=== PATIENT | female | born 1955 | race American Indian/Alaskan Native ===

== ENCOUNTER 2019-01-18 22:30 | Emergency (ER) | payer MEDICAID, OTHER, SELFPAY ==
[2019-01-18] VITALS (7 sets, daily range): BP systolic 164–185; BP diastolic 91–105; PULSE 82–95; RESP 16–21; O2SAT 94–97
--- NOTE | 2019-01-18 22:33 | DI.CT.S_ITS ---
PROCEDURE: CT HEAD/BRAIN WO CON INDICATIONS: Code stroke TECHNIQUE: Noncontrast 4.5 mm thick angled axial sections acquired from the foramen magnum to the vertex, with coronal and sagittal reformats. For radiation dose reduction, the following was used: automated exposure control, adjustment of mA and/or kV according to patient size. COMPARISON: [facility], CT, HEAD WITHOUT CONTRAST, 06/30/2016, 9:29. FINDINGS: Image quality: Excellent. CSF spaces: Basal cisterns are patent. No extra-axial fluid collections. The ventricles are symmetric in size and shape. Brain: There is an old infarct in the right frontal lobe with encephalomalacia, unchanged from last exam. No intracranial bleeds or masses. There is cerebral volume loss for age, with resultant ventricular and sulcal prominence. There are periventricular and deep white matter chronic small vessel ischemic changes. There is intracranial internal carotid artery atherosclerosis. Skull and face: Calvarium and visualized facial bones appear intact, without suspicious lesions. Sinuses: Visualized sinuses and mastoids are clear. IMPRESSION: 1. No acute intracranial abnormalities. 2. Old infarct in the right frontal lobe with encephalomalacia. 3. Cerebral volume loss and chronic microvascular ischemic changes. No significant discrepancy with the material handler 1st shift radiology preliminary report. Dictated by: Katelyn Hinds M.D. on 01/19/2019 at 7:17 Approved by: Katelyn Hinds M.D. on 01/19/2019 at 7:19
--- NOTE | 2019-01-18 22:33 | DI.CT.S_ITS ---
PROCEDURE: CT ANGIO HEAD AND NECK INDICATIONS: Code stroke TECHNIQUE: Pre-contrast 4.5 mm thick sections acquired from the foramen magnum to the vertex. After the administration of intravenous contrast, 1 mm thick sections acquired from the aortic arch through the [place]. Post-contrast 4.5 mm thick sections then re-acquired from the foramen magnum to the vertex. 3-dimensional vmtfdzw-rynmkkvcv-ddrktphzca (MIP) and/or volume rendering reformats were acquired of the central intracranial vasculature and neck separately. COMPARISON: [facility], CT, HEAD WITHOUT CONTRAST, 06/30/2016, 9:29. [facility], MR, STROKE PROTOCOL, 07/01/2016, 11:34. [facility], CT, CT HEAD/BRAIN WO CON, 01/18/2019, 22:30. FINDINGS: Image quality: Excellent. BRAIN: CSF spaces: Ventricles are normal in size and shape. Basal cisterns are patent. No extra-axial fluid collections. Brain: There is old right frontal infarction. Dilated perivascular space versus lacunar infarct in the left basal ganglia. There is cerebral volume loss. Mild to moderate periventricular white matter chronic small vessel ischemic changes are present. No midline shift. No intracranial bleeds or masses. Charles-white matter interface appears intact. Skull and face: Calvarium and facial bones appear intact, without suspicious lesions. Orbits appear normal. Sinuses: Sinuses and mastoids are clear. HEAD CT ANGIOGRAPHY: Anterior circulation: Intracranial internal carotid arteries are normal in size and flow. The flow within the paired anterior cerebral arteries is normal and symmetric. The flow within the middle cerebral arteries is normal and symmetric. The anterior communicating artery is seen. No aneurysms are seen. Posterior circulation: Visualized portions of the vertebral arteries demonstrate normal caliber, and join to form a normal appearing basilar artery. The small caliber of the left posterior cerebral artery. The right posterior cerebral artery is normal in caliber. No aneurysms are seen. NECK CT ANGIOGRAPHY: Carotid system: The great vessels demonstrate a conventional anatomy as they arise from the aortic arch. The origins of the common carotid arteries appear patent. The common carotid arteries demonstrate normal caliber and courses. There are calcified plaques at the bifurcations bilaterally without high-grade stenosis. The internal carotid arteries demonstrate normal calibers and courses. Posterior circulation: The origins of the vertebral arteries both appear widely patent. The more superior extracranial portions of both vertebral arteries also demonstrate normal courses and calibers. They join to form a normal appearing basilar artery. Soft tissues: Visualized neck soft tissues demonstrate no suspicious abnormalities. Bones: No suspicious bony lesions. Visualized cervical spine appears normally aligned. IMPRESSION: 1. No acute intracranial abnormalities. Old right frontal cerebral infarction is present. There is cerebral volume loss with mild to moderate periventricular white matter chronic small vessel ischemic changes. 2. No high-grade stenosis or occlusion in anterior circulations. 3. Small caliber of the left posterior cerebral artery, which could be anatomic variant. 4. No high-grade stenosis or occlusion in cervical carotid arteries bilaterally. 5. No high-grade stenosis or occlusion in cervical vertebral arteries bilaterally. Any quantitative measurements of stenosis were performed using NASCET criteria. Dictated by: Katelyn Hinds M.D. on 01/19/2019 at 8:03 Approved by: Katelyn Hinds M.D. on 01/19/2019 at 8:20
--- NOTE | 2019-01-18 22:34 | ED.GENADULT ---
HPI - General Adult General Chief complaint: Neuro Symptoms/Deficit Stated complaint: Code Stroke Time Seen by Provider: 01/18/19 22:32 Source: EMS Mode of arrival: EMS Limitations: other (Aphasia) History of Present Illness HPI narrative: Arrives by EMS as a code stroke is reported by EMS that the patient's last known normal was at 1900 this evening. Patient arrived to the emergency department at the 3-1/2 hour time lily. It was reported by EMS that the patient is an insulin-dependent diabetic unsure how compliant she is. Also history that she has a prior stroke. During my interview with the patient does appear that this prior stroke was greater than 1 year ago. Unsure any residual deficits. There is no family at bedside to help with history. It does appear that the last known normal at 1900 is a firm time line. EMS reports that they were told the patient has equal strength bilaterally however this slurring her words and has a right-sided facial droop. No interventions from EMS prior to arrival Related Data Home Medications Medication Instructions Recorded Confirmed amlodipine 10 mg PO QDAY #0 06/30/16 atorvastatin 40 mg PO HS #0 06/30/16 bupropion HCl [Wellbutrin SR] 100 mg PO BID #0 06/30/16 cholecalciferol (vitamin D3) 1,000 iu PO QDAY #0 06/30/16 [Vitamin D3] insulin asp prt-insulin aspart 10 u SQ BIDCC #0 06/30/16 [Novolog Mix 70-30FlexPen U-100] metoprolol tartrate 50 mg PO BID #0 06/30/16 omeprazole 20 mg PO QDAY #0 06/30/16 prazosin [Minipress] 1 mg PO HS #0 06/30/16 Previous Rx's Medication Instructions Recorded aspirin 325 mg PO QDAY #30 07/02/16 lisinopril 40 mg PO QDAY #30 07/02/16 metformin [Glucophage] 1,000 mg PO BIDCC #60 07/02/16 Allergies Allergy/AdvReac Type Severity Reaction Status Date / Time No Known Allergies Allergy Uncoded 07/23/17 12:26 Review of Systems Review of Systems Narrative: Limited review systems given patient's medical condition ROS Unobtainable: Unobtainable due to medical condition Constitutional Constitutional: Denies headache(s) ENT Ears, Nose, Mouth, and Throat: Denies headache(s) Cardiovascular Cardiovascular: Denies chest pain and Denies dyspnea Respiratory Respiratory: Denies dyspnea Gastrointestinal Gastrointestinal: Denies abdominal pain Neurologic Neurologic: Denies headache(s) Comments: Slurring words, facial droop, Hematologic/Lymphatic Comments: No reported use of anticoagulation [facility] Medical History (Updated 01/18/19 @ 23:15 by Colin Le DO) CVA (cerebral vascular accident) (Acute) Diabetes (Acute) Surgical History Surgical history unknown (Acute) Social History Smoking Status: Current every day smoker Social History Smoking Status: Current every day smoker Exam Initial Vital Signs Initial Vital Signs: Vital Signs Pulse Rate 95 H 01/18/19 22:17 Respiratory Rate 16 01/18/19 22:17 Blood Pressure 171/91 H 01/18/19 22:17 Pulse Oximetry 97 01/18/19 22:17 Const General: comfortable Orientation: alert and awake Other: Aphasia HENMT Head: normal to inspection and normocephalic Eyes Pupils: PERRL EOM: EOM intact bilaterally (However some apparent difficulty looking to the right) Resp Effort & Inspection: normal respiratory effort Auscultation: clear to auscultation bilaterally Cardio Rate: regular rate Rhythm: regular rhythm Pulses: radial pulses present GI Inspection: non-distended Palpation: soft Skin Lesions: no lesions Rashes: no rashes Neuro General: alert and awake Other: See NIH scale Extrem General: capillary refill normal and No edema Psych Appearance: grossly normal and well kempt Scores GCS Kelly coma scale eye opening: Spontaneous [place] coma scale verbal response: None Kelly coma scale motor response: Obey commands [place] coma scale total score: 11 NIH Stroke Scale Level of Conciousness: Alert, keenly responsive Ask month/age: Answers neither question correctly, aphasic, stuporous, coma Open/close eyes, close hand: Performs both tasks correctly Best gaze horizontal: Partial gaze palsy, can be overcome by finger tracking, head turning Visual zuleta: Partial hemianopia Facial palsy: Minor paralysis, flattened nasolabial fold, asymmetry on smiling Left arm drift: No drift for full 10 sec Right arm drift: No drift for full 10 sec Left leg drift: No drift for full 10 sec Right leg drift: No drift for full 10 sec Limb ataxia: Present in one limb (Right upper them) Sensory on face/arms/legs: Normal, no sensory loss Best language: Mute, global aphasia Dysarthria: Severe, unintelligible Extinction or inattention: Visual, tactile, auditory, spacial or personal inattention to stimuli Total NIH Stroke scale score: 12 Course Orders Ordered: ED Orders 01/18/19 22:33 CT angio head and neck Stat CT head/brain wo con Stat 01/18/19 22:38 Complete Blood Count AUTO DIFF Stat Comprehensive Metabolic Panel Stat Ethanol (ETOH) Stat Lipase Stat Partial Thromboplastin Time Stat Prothrombin Time INR Stat Troponin I Stat 01/18/19 22:56 Ammonia (NH3) Stat Thyroid Stimulating Hormone Stat 01/18/19 23:14 EKG-12 Lead Stat Sodium Chloride (Normal Saline 0.9%) 1,000 mls @ 125 mls/hr IV CONT ABIDA Last Admin: 01/19/19 00:50 Dose: 125 mls/hr Documented by: PEPE Discontinued Medications Alteplase, Recombinant (Activase) 8 mg 0.09 mg/kg (8 mg) IV NOW ONE Stop: 01/18/19 23:01 Last Admin: 01/18/19 23:24 Dose: 8 mg Documented by: PEPE Alteplase, Recombinant (Activase) 71.6 mg 0.81 mg/kg (71.6 mg) IV NOW ONE Stop: 01/18/19 23:01 Last Admin: 01/18/19 23:25 Dose: 71.6 mg Documented by: PEPE Vital Signs Vital signs: Vital Signs - 8 hr 01/18/19 22:17 01/18/19 23:00 01/18/19 23:25 Pulse Rate 95 H 91 H 89 Respiratory Rate 16 21 Blood Pressure 171/91 H Blood Pressure [Right Arm] 171/91 H 165/100 H Pulse Oximetry 97 95 94 01/18/19 23:36 01/18/19 23:40 01/18/19 23:45 Pulse Rate 87 82 82 Respiratory Rate 19 17 19 Blood Pressure Blood Pressure [Right Arm] 164/96 H 174/105 H 175/100 H Pulse Oximetry 94 95 95 01/18/19 23:55 01/19/19 00:05 01/19/19 00:10 Pulse Rate 83 76 79 Respiratory Rate 19 16 20 Blood Pressure Blood Pressure [Right Arm] 185/101 H 178/103 H 164/104 H Pulse Oximetry 96 96 95 01/19/19 00:21 01/19/19 00:25 01/19/19 00:40 Pulse Rate 81 78 77 Respiratory Rate 19 19 19 Blood Pressure Blood Pressure [Right Arm] 180/100 H 163/109 H 167/93 H Pulse Oximetry 96 20 L 96 01/19/19 00:55 01/19/19 01:10 01/19/19 01:26 Pulse Rate 78 81 87 Respiratory Rate 19 17 21 Blood Pressure Blood Pressure [Right Arm] 162/104 H 176/109 H 183/98 H Pulse Oximetry 97 97 97 Medical Decision Making Lab Data Lab results reviewed: Yes I reviewed the patient's lab results. Result diagrams: 01/18/19 22:38 01/18/19 22:38 Labs: Lab Results 01/18/19 01/18/19 01/18/19 Range/Units 22:38 22:38 22:38 WBC 9.7 (4.5-11.0) X10^3/uL RBC 4.99 (4.0-5.2) X10^6/uL Hgb 15.2 (12.0-16.0) g/dL Hct 44.0 (36-46) % MCV 88.3 (80-100) fL MCH 30.4 (26-34) PG MCHC 34.4 (30-36) % RDW 12.9 (11.6-14.8) % Plt Count 383 (150-400) X10^3/uL Neut % (Auto) 59.2 (50-75) % Lymph % (Auto) 29.8 (25-40) % [place] % (Auto) 7.5 (3-14) % Eos % (Auto) 2.7 (2-4) % Baso % (Auto) 0.8 (0-2) % Neut # (Auto) 5800 (8304-9480) /uL Lymph # (Auto) 2900 (0217-1558) /uL [place] # (Auto) 700 (0-900) /uL Eos # (Auto) 300 (0-450) /uL Baso # (Auto) 100 (0-100) /uL PT 11.4 (10.1-12.7) SECONDS INR 1.0 (0.9-1.3) APTT 32 (26.4-36.2) SECONDS Sodium 140 (137-145) mmol/L Potassium 3.2 L (3.4-5.1) mmol/L Chloride 98 (98-107) mmol/L Carbon Dioxide 29 (22-32) mmol/L BUN 16 (7-17) mg/dL Creatinine 1.10 H (0.52-1.04) mg/dL Estimated GFR 50.5 L (>60) mL/min BUN/Creatinine Ratio 14.5 (6-22) Glucose 252 H (80-110) mg/dL Calcium 10.1 (8.4-10.2) mg/dL Total Bilirubin 0.7 (0.2-1.3) mg/dL AST 21 (14-36) IU/L ALT 19 (9-52) IU/L Alkaline Phosphatase 102 (38-126) U/L Ammonia (9-30) umol/L Troponin I (0.01-0.034) ng/mL Total Protein 7.3 (6.3-8.2) g/dL Albumin 4.2 (3.5-5.0) g/dL Globulin 3.1 (1.7-4.1) g/dL Albumin/Globulin Ratio 1.4 (1.0-2.8) Lipase (23-300) U/L TSH (0.47-4.68) uIU/mL Ethyl Alcohol < 10 ( - 10) mg/dL 01/18/19 01/18/19 01/18/19 Range/Units 22:38 22:56 22:56 WBC (4.5-11.0) X10^3/uL RBC (4.0-5.2) X10^6/uL Hgb (12.0-16.0) g/dL Hct (36-46) % MCV (80-100) fL MCH (26-34) PG MCHC (30-36) % RDW (11.6-14.8) % Plt Count (150-400) X10^3/uL Neut % (Auto) (50-75) % Lymph % (Auto) (25-40) % [place] % (Auto) (3-14) % Eos % (Auto) (2-4) % Baso % (Auto) (0-2) % Neut # (Auto) (5923-7848) /uL Lymph # (Auto) (2417-4434) /uL [place] # (Auto) (0-900) /uL Eos # (Auto) (0-450) /uL Baso # (Auto) (0-100) /uL PT (10.1-12.7) SECONDS INR (0.9-1.3) APTT (26.4-36.2) SECONDS Sodium (137-145) mmol/L Potassium (3.4-5.1) mmol/L Chloride (98-107) mmol/L Carbon Dioxide (22-32) mmol/L BUN (7-17) mg/dL Creatinine (0.52-1.04) mg/dL Estimated GFR (>60) mL/min BUN/Creatinine Ratio (6-22) Glucose (80-110) mg/dL Calcium (8.4-10.2) mg/dL Total Bilirubin (0.2-1.3) mg/dL AST (14-36) IU/L ALT (9-52) IU/L Alkaline Phosphatase (38-126) U/L Ammonia < 9.0 L (9-30) umol/L Troponin I < 0.012 (0.01-0.034) ng/mL Total Protein (6.3-8.2) g/dL Albumin (3.5-5.0) g/dL Globulin (1.7-4.1) g/dL Albumin/Globulin Ratio (1.0-2.8) Lipase 141 (23-300) U/L TSH 0.81 (0.47-4.68) uIU/mL Ethyl Alcohol ( - 10) mg/dL Point of Care Testing Glucose POC 272 Point of care testing: Point of Care Testing Glucose POC [address] scan - head: Radiologist's impression: No acute intracranial findings. Specifically, no evidence of intracranial hemorrhage. Old right frontal infarct CTA head and neck: Radiologist's impression: High-grade stenosis of the markedly diminutive left posterior cerebral artery throughout its course Atherosclerotic vascular calcifications present in the carotid bulbs and cavernous portions of the internal carotid arteries without significant stenosis ECG Data Attestation: I personally reviewed and interpreted this ECG as follows: Prior ECG tracings: not available for review Interpretation: Sinus rhythm Ventricular rate 84 Normal axis Normal QRS Normal QTC No ST T wave changes MDM Narrative Medical decision making narrative: Patient arrived right at the 3.5 hour window for tPA. Patient received tPA based on symptoms after non con head CT showed no signs of intracranial hemorrhage. initial NIH score 12. After period of time patient's symptoms did start to improve. I discussed the case with who agreed with the tPA. At review of the CTA does not show any indication for code IR. 0125: Patient somewhat improved after tPA. There is no signs of intracranial hemorrhage. Patient's speech has improved. When asked what brought her to the emergency department she said ?I had a stroke? she is still slurring her words quite a bit however I do feel there improved. Repeat NIH is 10. Please see NIH scoring sheet for details. tPA infusion is complete. Will continue to monitor After several discussions with Dr. Javier he spoke with the neuro intensive care provider Dr. Daniel who will accept the patient in transfer. I did not specifically speak with Dr. Daniel however transfer center provided this name is accepting provider. We do appreciate their support in caring for this patient. Patient is stable for transport. There has been no signs of intracranial hemorrhage. patient was informed of the need for transfer and the importance of the transfer. She is stable for transport. She expressed understanding and agreement. Discharge Plan Departure Patient Disposition: [facility] Clinical Impression: Expressive aphasia CVA (cerebral vascular accident) Qualifiers: CVA mechanism: unspecified Qualified Code(s): I63.9 - Cerebral infarction, unspecified Prescriptions: No Action atorvastatin 40 MG tablet 40 mg PO HS Qty: 0 RF: 0 bupropion HCl [Wellbutrin SR] 100 MG tablet extended release 12 hr 100 mg PO BID Qty: 0 RF: 0 amlodipine 10 MG tablet 10 mg PO QDAY Qty: 0 RF: 0 metoprolol tartrate 50 MG tablet 50 mg PO BID Qty: 0 RF: 0 prazosin [Minipress] 1 MG capsule 1 mg PO HS Qty: 0 RF: 0 omeprazole 20 MG capsule,delayed release(DR/EC) 20 mg PO QDAY Qty: 0 RF: 0 cholecalciferol (vitamin D3) [Vitamin D3] 1,000 UNIT tablet 1,000 iu PO QDAY Qty: 0 RF: 0 insulin asp prt-insulin aspart [Novolog Mix 70-30FlexPen U-100] 100 UNIT/1 ML insulin pen 10 u SQ BIDCC Qty: 0 RF: 0 lisinopril 20 MG tablet 40 mg PO QDAY Qty: 30 RF: 0 aspirin 325 MG tablet,delayed release (DR/EC) 325 mg PO QDAY Qty: 30 RF: 0 metformin [Glucophage] 500 MG tablet 1,000 mg PO BIDCC Qty: 60 RF: 0 Referrals: Merle Antonio MD [Primary Care Provider] -
[2019-01-18 22:44] LABS: Add Manual Diff / Slide Review NO; Basophils Absolute Auto 100 /uL (0-100); Basophils Percent Auto 0.8 % (0-2); Eosinophils Absolute Auto 300 /uL (0-450); Eosinophils Percent Auto 2.7 % (2-4); Hemoglobin 15.2 g/dL (12.0-16.0); Lymphocytes Absolute Auto 2900 /uL (1100-4500); Lymphocytes Percent Auto 29.8 % (25-40); Mean Corpuscular HGB Conc 34.4 % (30-36); Mean Corpuscular Hemoglobin 30.4 PG (26-34); Mean Corpuscular Volume 88.3 fL (80-100); Monocytes Absolute Auto 700 /uL (0-900); Monocytes Percent Auto 7.5 % (3-14); Neutrophils Absolute Auto 5800 /uL (1500-7000); Neutrophils Percent Auto 59.2 % (50-75); Platelet Count 383 X10^3/uL (150-400); Red Blood Cell Count 4.99 X10^6/uL (4.0-5.2); Red Cell Distribution Width 12.9 % (11.6-14.8); White Blood Cell Count 9.7 X10^3/uL (4.5-11.0)
[2019-01-18 22:49] LABS: Prothrombin Time 11.4 SECONDS (10.1-12.7)
[2019-01-18 22:51] LABS: PTT Partial Thromboplastin Tim 32 SECONDS (26.4-36.2)
[2019-01-18 22:54] LABS: Lipase 141 U/L (23-300)
[2019-01-18 22:55] LABS: Alanine Aminotransferase 19 IU/L (9-52); Albumin 4.2 g/dL (3.5-5.0); Albumin Globulin Ratio 1.4 (1.0-2.8); Alkaline Phosphatase 102 U/L (38-126); Aspartate Aminotransferase 21 IU/L (14-36); BUN Creatinine Ratio 14.5 (6-22); Bilirubin Total 0.7 mg/dL (0.2-1.3); Blood Urea Nitrogen 16 mg/dL (7-17); Calcium 10.1 mg/dL (8.4-10.2); Carbon Dioxide 29 mmol/L (22-32); Chloride 98 mmol/L (98-107); Estimated Glomerular Filt Rate 50.5 mL/min (>60); Ethanol (ETOH) < 10 mg/dL; Globulin 3.1 g/dL (1.7-4.1); Glucose 252 mg/dL (80-110); HEMOLYSIS < 15 (0-50); Potassium 3.2 mmol/L (3.4-5.1); Sodium 140 mmol/L (137-145); Total Protein 7.3 g/dL (6.3-8.2)
[2019-01-18 23:07] LABS: Troponin I < 0.012 ng/mL (0.01-0.034)
[2019-01-18 23:15] LABS: Ammonia (NH3) < 9.0 umol/L (9-30)
[2019-01-18] MEDS: ALTEPLASE 100 MG VIAL 8 MG IV (23:24)
[2019-01-18] MEDS: ALTEPLASE 100 MG VIAL 71.6 MG IV (23:25)
--- NOTE | 2019-01-18 23:27 | PC.NURSE ---
Alteplase infusion started 2323
[2019-01-18 23:53] LABS: Thyroid Stimulating Hormone 0.81 uIU/mL (0.47-4.68)
--- NOTE | 2019-01-18 23:54 | PC.NURSE ---
Neuro status improving. Pt is resting with eyes closed, opens her eyes to verbal stimuli. Still not able to produce words, but interactive. Pt indicates no pain. Face appears symmetrical, pt is more attentive to her right side now. Alteplase infusing.
[2019-01-19] VITALS (12 sets, daily range): BP systolic 162–184; BP diastolic 93–109; PULSE 76–87; RESP 16–21; TEMP 36.9; O2SAT 20–100
--- NOTE | 2019-01-19 00:10 | PC.NURSE ---
Pt dozing, when I woke her she stated, Hey. Able to state name, Michael. Speech still garbled. Facial symmetrical. Pt able to attend to me when I stand on her right. Denies pain. Improving.
--- NOTE | 2019-01-19 00:26 | PC.NURSE ---
Now able to state her name, Michael, she is at the hospital, and she lives in [place]. Longer sentence still unintelligible. Alteplase infusion now flushing with NS per protocol. Pt denies pain.
--- NOTE | 2019-01-19 00:45 | PC.NURSE ---
Pt able to state name, DO PawelB, [id number], and she is at the hospital. Dr Le aware of improving condition.
[2019-01-19] MEDS: SODIUM CHLORIDE 0.9% 1,000 ML 125 ML IV (00:50)
--- NOTE | 2019-01-19 00:51 | PC.NURSE ---
Alteplase infusing and flush now complete.
--- NOTE | 2019-01-19 01:00 | PC.NURSE ---
Pt states she wants to go potty. Offered bedpan, pt states she will wait.
--- NOTE | 2019-01-19 02:05 | PC.NURSE ---
[facility]. Pt appears much improved in terms of attention to right side and she is now able to make needs known verbally. Facial droop still present but very mild. VSS. Pt denies pain, no new neuro deficit.
--- NOTE | 2019-01-19 02:57 | PC.NURSE ---
Pt is able to speak in longer sentences that are comprehensible now. Pt belongings placed in bag: green Crocs, E-cigarette, clothing, and glasses. Pt states she left her phone at home.
--- NOTE | 2019-01-19 03:33 | PC.NURSE ---
Fluency of speech continues to improve. Very mild R facial droop still present. Pt alert and cooperative, agreeable to go to [place].
== END 2019-01-19 03:45 | disposition short-term general hospital (02) ==
PROVIDERS: Emergency Provider Emergency Medicine; Family Provider Family Medicine; PCP Family Medicine
DX: R47.01 Aphasia (principal); I63.9 Cerebral infarction, unspecified; E11.9 Type 2 diabetes mellitus without complications; Z79.4 Long term (current) use of insulin
CPT/HCPCS: 36415; 70450; 70496; 70498; 80053; 80320; 82140; 82962; 83690; 84443; 84484; 85025; 85610; 85730; 93005; 96361; 96374; 99285; 99291; 99292; J2997; Q9967

== ENCOUNTER → 2019-09-14 19:11 | Outpatient (ROUT) | payer MEDICAID, OTHER, SELFPAY ==
[2019-09-17 14:29] LABS: COVID19 Sendout Not Detected (Not Detected)
== END ==
PROVIDERS: Family Provider Family Medicine; PCP Family Medicine; Visit Provider Family Medicine
DX: Z11.59 Encounter for screening for other viral diseases (principal)
CPT/HCPCS: 87635

== ENCOUNTER → 2019-12-16 08:39 | Outpatient (ROUT) | payer MEDICAID, OTHER, SELFPAY ==
[2019-12-16 09:02] LABS: Add Manual Diff / Slide Review NO; Basophils Absolute Auto 100 /uL (0-100); Eosinophils Absolute Auto 300 /uL (0-450); Eosinophils Percent Auto 3.7 % (2-4); Hematocrit 42.3 % (36-46); Hemoglobin 14.2 g/dL (12.0-16.0); Lymphocytes Absolute Auto 2100 /uL (1100-4500); Lymphocytes Percent Auto 25.3 % (25-40); Mean Corpuscular HGB Conc 33.6 % (30-36); Mean Corpuscular Hemoglobin 30.5 PG (26-34); Mean Corpuscular Volume 90.9 fL (80-100); Monocytes Absolute Auto 600 /uL (0-900); Monocytes Percent Auto 7.5 % (3-14); Neutrophils Absolute Auto 5100 /uL (1500-7000); Neutrophils Percent Auto 62.5 % (50-75); Platelet Count 270 X10^3/uL (150-400); Red Blood Cell Count 4.65 X10^6/uL (4.0-5.2); Red Cell Distribution Width 13.6 % (11.6-14.8); White Blood Cell Count 8.1 X10^3/uL (4.5-11.0)
[2019-12-16 09:10] LABS: BUN Creatinine Ratio 14.6 (6-22); Blood Urea Nitrogen 13 mg/dL (7-17); Calcium 9.6 mg/dL (8.4-10.2); Carbon Dioxide 27 mmol/L (22-32); Chloride 105 mmol/L (98-107); Cholesterol 126 mg/dL (140-199); Estimated Glomerular Filt Rate > 60.0 mL/min (>60); Glucose 142 mg/dL (80-110); HDL Cholesterol 61 mg/dL (40-60); HEMOLYSIS < 15 (0-50); LDL Cholesterol Calculated 48 mg/dL (<100); Potassium 3.8 mmol/L (3.4-5.1); Sodium 140 mmol/L (137-145); Triglycerides 87 mg/dL (35-150)
[2019-12-16 09:21] LABS: Hemoglobin A1C% w Est Avg Glu 6.7 % (4.0-6.0)
== END ==
PROVIDERS: Family Provider Family Medicine; PCP Family Medicine; Visit Provider Family Medicine
DX: E11.9 Type 2 diabetes mellitus without complications (principal); E78.5 Hyperlipidemia, unspecified; R03.0 Elevated blood-pressure reading, without diagnosis of hypertension; Z51.81 Encounter for therapeutic drug level monitoring
CPT/HCPCS: 36415; 80048; 80061; 83036; 85025

== ENCOUNTER → 2020-06-16 15:41 | Outpatient (ROUT) | payer MEDICAID, OTHER, SELFPAY ==
[2020-06-16 17:34] LABS: Creatinine Urine Random 82.5 mg/dL
[2020-06-16 17:40] LABS: Microalbumin Urine Random < 0.6 mg/dL (0-1.6)
== END ==
PROVIDERS: Family Provider Family Medicine; PCP Family Medicine; Visit Provider Family Medicine
DX: Z13.9 Encounter for screening, unspecified (principal)
CPT/HCPCS: 82043; 82570

== ENCOUNTER 2020-11-11 18:14 | Emergency (ER) | payer MEDICAID, OTHER, SELFPAY ==
--- NOTE | 2020-11-11 18:23 | ED_ITS ---
HPI - Fall General Chief Complaint: Fall Stated Complaint: GLF Time Seen by Provider: 11/11/20 18:15 History of Present Illness HPI Narrative: 65-year-old woman [facility] after having had a stroke with significant aphasia and right-sided weakness presents after an unwitnessed ground level fall. Her additional medical problems include difficulty walking and she typically uses a walker, hyperlipidemia, hypertension, diabetes. She is able to communicate clearly with yes and no questions and has a pointing chart and can do some rudimentary white board writing. She is entirely alert and seems to be at her baseline. She does complain of a mild headache. She notes that she had the right occipital area of her head but does not have any overt injury she is not complaining of neck pain. She is not on any blood thinners. She reports no other pain in extremities with back with pelvis. Apparently she had indicated to retirement staff that she would like to be evaluated after this ground level fall. She denies any recent fevers, illness, syncope or loss of consciousness, chest pain, shortness of breath, nausea, vomiting, diarrhea. Related Data Home Medications Medication Instructions Recorded Confirmed amlodipine 10 mg tablet 10 mg PO QDAY #0 06/30/16 atorvastatin 40 mg tablet 40 mg PO HS #0 06/30/16 bupropion HCl 100 mg tablet,12 hr 100 mg PO BID #0 06/30/16 sustained-release (Wellbutrin SR) cholecalciferol (vitamin D3) 25 1,000 iu PO QDAY #0 06/30/16 mcg (1,000 unit) tablet (Vitamin D3) insulin aspar prot-insulin aspart 10 u SQ BIDCC #0 06/30/16 100 unit/mL (70-30) subcutaneous pen (Novolog Mix 70-30FlexPen U-100) metoprolol tartrate 50 mg tablet 50 mg PO BID #0 06/30/16 omeprazole 20 mg capsule,delayed 20 mg PO QDAY #0 06/30/16 release prazosin 1 mg capsule (Minipress) 1 mg PO HS #0 06/30/16 Previous Rx's Medication Instructions Recorded aspirin 325 mg tablet,delayed 325 mg PO QDAY #30 07/02/16 release lisinopril 20 mg tablet 40 mg PO QDAY #30 07/02/16 metformin 500 mg tablet 1,000 mg PO BIDCC #60 07/02/16 (Glucophage) Allergies Allergy/AdvReac Type Severity Reaction Status Date / Time No Known Drug Allergies Allergy Verified 11/11/20 18:33 Review of Systems Review of Systems Narrative: Remainder of complete review of systems is otherwise unremarkable except for that included in the HPI. Patient History Medical History CVA (cerebral vascular accident) Diabetes Expressive aphasia Hyperlipidemia Hypertension Surgical History Surgical history unknown Social History Smoking Status: Current every day smoker Smoking Status: Current every day smoker tobacco type: cigarettes Exam Narrative Exam Narrative: General: Healthy appearing, in no acute distress. Awake, alert, verbal expressive aphasia but clearly appropriate interactive in able to answer specific yes or no questions HEENT: Moist mucous membranes, normal sclera with reactive pupils, atraumatic with no contusion or hematoma to the right occipital area where she indicates her head hit the ground Neck: No JVD, supple, no midline tenderness and no occipital insertion tenderness Respiratory: Lungs are clear to auscultation, no wheezing no rales no rhonchi. Full and symmetrical air movement Cardiac: Regular rate and rhythm no murmurs no bruits Abdomen: Soft, nontender, good bowel tones, no flank pain Skin: Warm and dry, no rashes, no contusions or abrasions to the torso abdomen back or extremities Neurologic: Baseline expressive aphasia with right upper extremity contractures and right sided weakness. Extremities: No trauma, well perfused Psych: Cooperative, appropriate insight and affect Initial Vital Signs Initial Vital Signs: Vital Signs Temperature 98.1 F 11/11/20 18:29 Pulse Rate 88 11/11/20 18:29 Respiratory Rate 15 11/11/20 18:29 Blood Pressure 143/78 H 11/11/20 18:29 Pulse Oximetry 99 11/11/20 18:29 Course Orders Ordered: Discontinued Medications Acetaminophen (Acetaminophen 325 Mg Tablet) 975 mg PO NOW ONE Stop: 11/11/20 18:24 Last Admin: 11/11/20 19:26 Dose: 975 mg Documented by: KATELYNN Vital Signs Vital signs: Vital Signs - 8 hr 11/11/20 18:29 Temperature 98.1 F Pulse Rate 88 Respiratory Rate 15 Blood Pressure 143/78 H Pulse Oximetry 99 MDM - Fall MDM Narrative Medical decision making narrative: 65-year-old woman with mobility issues after a stroke as well as expressive aphasia. Had a ground level fall where she reports hitting the right occipital portion of her head. She has a mild headache only there was no loss of consciousness, she is not on blood thinners, she has no other signs of injury and no change to her baseline neurologic status and at this time additional scanning or advanced imaging studies are not indicated. She is given Tylenol for her headache and we clearly reviewed her physical exam to make sure she understood that I was not finding any additional areas of injury and she could confirm this even in the presence of her expressive aphasia. Reassurance is given and she is safe for transport back to [facility] Discharge Plan Departure Patient Disposition: Home Clinical Impression: Fall Qualifiers: Encounter type: initial encounter Qualified Code(s): W19.XXXA - Unspecified fall, initial encounter Headache Qualifiers: Headache type: unspecified Headache chronicity pattern: acute headache Intractability: not intractable Qualified Code(s): R51.9 - Headache, unspecified Minor head injury Qualifiers: Encounter type: initial encounter Qualified Code(s): S09.90XA - Unspecified injury of head, initial encounter Instructions: How to Prevent Falls Activity Restrictions/Additional Instructions: Thank you for coming in today I am sorry that you had the minor fall that you experienced. I am glad that you do not show any signs of significant injury. With hitting your head, I am not concerned today with any bleeding inside and I do not think you need a CT scan today. With your description of how you fell I am not concerned that you had a heart attack, new stroke or other findings that would have caused you to fall. I hope you feel better and I wish you the best Prescriptions: No Action atorvastatin 40 MG tablet 40 mg PO HS Qty: 0 RF: 0 bupropion HCl [Wellbutrin SR] 100 MG tablet extended release 12 hr 100 mg PO BID Qty: 0 RF: 0 amlodipine 10 MG tablet 10 mg PO QDAY Qty: 0 RF: 0 metoprolol tartrate 50 MG tablet 50 mg PO BID Qty: 0 RF: 0 prazosin [Minipress] 1 MG capsule 1 mg PO HS Qty: 0 RF: 0 omeprazole 20 MG capsule,delayed release(DR/EC) 20 mg PO QDAY Qty: 0 RF: 0 cholecalciferol (vitamin D3) [Vitamin D3] 1,000 UNIT tablet 1,000 iu PO QDAY Qty: 0 RF: 0 insulin asp prt-insulin aspart [Novolog Mix 70-30FlexPen U-100] 100 UNIT/1 ML insulin pen 10 u SQ BIDCC Qty: 0 RF: 0 lisinopril 20 MG tablet 40 mg PO QDAY Qty: 30 RF: 0 aspirin 325 MG tablet,delayed release (DR/EC) 325 mg PO QDAY Qty: 30 RF: 0 metformin [Glucophage] 500 MG tablet 1,000 mg PO BIDCC Qty: 60 RF: 0 Referrals: Merle Antonio MD [Primary Care Provider] -
[2020-11-11 18:29] VITALS: BP 143/78; PULSE 88; RESP 15; TEMP 36.7; O2SAT 99
[2020-11-11] MEDS: ACETAMINOPHEN 325 MG TABLET 975 MG PO (19:26)
== END 2020-11-11 20:30 | disposition home or self-care (01) ==
PROVIDERS: Emergency Provider Emergency Medicine; Family Provider Family Medicine; PCP Family Medicine
DX: S09.90XA Unspecified injury of head, initial encounter (principal); R51.9 Headache, unspecified; W19.XXXA Unspecified fall, initial encounter
CPT/HCPCS: 99282; 99283

== ENCOUNTER 2021-02-01 18:10 | Emergency (ER) | payer MEDICAID, OTHER, SELFPAY ==
[2021-02-01 18:16] VITALS: BP 144/78; PULSE 71; RESP 16; TEMP 36.7; O2SAT 99
--- NOTE | 2021-02-01 18:20 | DI.RAD.S_ITS ---
PROCEDURE: XR ANKLE RT MIN 3V INDICATIONS: rt ankle swelling TECHNIQUE: 3 views of the ankle were acquired. COMPARISON: None. FINDINGS: Bones: No acute fractures or dislocations. Ankle mortise is normally aligned. No suspicious bony lesions. A small plantar calcaneal enthesophyte is present. Soft tissues: Soft tissue edema is seen surrounding the ankle. IMPRESSION: No acute osseous abnormality. If clinical suspicion and/or symptoms persist, additional imaging with repeat plain films, or advanced imaging (e.g. CT, MRI) may be helpful for further assessment. Dictated by: Felix Paiz M.D. on 02/01/2021 at 18:46 Approved by: Felix Paiz M.D. on 02/01/2021 at 18:50
--- NOTE | 2021-02-01 18:26 | DI.US.S_ITS ---
PROCEDURE: US PERIPH VENOUS LOW EXTREM RT INDICATIONS: SWELLING TECHNIQUE: Real-time imaging, as well as color and pulse Doppler interrogation, were performed of the lower extremity deep veins from the inguinal ligament to the popliteal fossa. COMPARISON: None. FINDINGS: The common femoral, femoral and popliteal veins are normally compressible, and free of intraluminal thrombus. Color and pulse Doppler demonstrate normal phasic intraluminal flow. There is normal augmentation response to distal compression maneuver. IMPRESSION: No sonographic evidence of deep venous thrombosis in the right lower extremity. Dictated by: Felix Paiz M.D. on 02/01/2021 at 19:55 Approved by: Felix Paiz M.D. on 02/01/2021 at 19:56
--- NOTE | 2021-02-01 18:31 | ED_ITS ---
HPI - Extremity Problem <Abbi Diaz, [facility] - Last Filed: 02/01/21 20:05> General Chief complaint: Extremity Problem,Nontraumatic Stated complaint: Ankle swelling Time Seen by Provider: 02/01/21 18:19 Source: EMS Mode of arrival: EMS Limitations: language barrier History of Present Illness HPI Narrative: 65-year-old female who currently lives at [facility] after having a stroke resulting in significant aphasia and right-sided weakness presents to the emergency department today for 1 week of worsening right lower extremity swelling. The swelling is primarily around her right ankle, patient is unable to communicate in sentences but clearly can answer yes or no questions. Since this stroke, she has had difficulty walking and she typically uses a walker, sometimes a wheelchair, and reports she doesn't walk much or for long distances. Her other medical problems include hyperlipidemia, hypertension, and diabetes. She is entirely alert and seems to be at her baseline. She is not on any blood thinners. She reports no other pain but complains of Rt ankle swelling, with mild pain. She denies any recent fevers, illness, syncope or loss of consciousness, chest pain, shortness of breath, nausea, vomiting, diarrhea. Related Data Home Medications Medication Instructions Recorded Confirmed amlodipine 10 mg tablet 10 mg PO QDAY #0 06/30/16 atorvastatin 40 mg tablet 40 mg PO HS #0 06/30/16 bupropion HCl 100 mg tablet,12 hr 100 mg PO BID #0 06/30/16 sustained-release (Wellbutrin SR) cholecalciferol (vitamin D3) 25 1,000 iu PO QDAY #0 06/30/16 mcg (1,000 unit) tablet (Vitamin D3) insulin aspar prot-insulin aspart 10 u SQ BIDCC #0 06/30/16 100 unit/mL (70-30) subcutaneous pen (Novolog Mix 70-30FlexPen U-100) metoprolol tartrate 50 mg tablet 50 mg PO BID #0 06/30/16 omeprazole 20 mg capsule,delayed 20 mg PO QDAY #0 06/30/16 release prazosin 1 mg capsule (Minipress) 1 mg PO HS #0 06/30/16 Previous Rx's Medication Instructions Recorded aspirin 325 mg tablet,delayed 325 mg PO QDAY #30 07/02/16 release lisinopril 20 mg tablet 40 mg PO QDAY #30 07/02/16 metformin 500 mg tablet 1,000 mg PO BIDCC #60 07/02/16 (Glucophage) Allergies Allergy/AdvReac Type Severity Reaction Status Date / Time No Known Drug Allergies Allergy Verified 02/01/21 18:18 Review of Systems <NGOC Rhoades - Last Filed: 02/01/21 20:05> Review of Systems Narrative: General: denies fever, chills Head/Neck: denies headache, neck pain Eyes: denies visual changes, eye pain Cardio: denies chest pain, palpitations Respiratory: denies shortness of breath, cough GI: denies abdominal pain, nausea, vomiting, or diarrhea : denies dysuria, hematuria MSK: Endorses right ankle pain, denies any other extremity pain, denies muscle weakness Skin: denies rash, itching Neuro: denies numbness, tingling Patient History <NGOC Rhoades - Last Filed: 02/01/21 20:05> Medical History CVA (cerebral vascular accident) Diabetes Expressive aphasia Hyperlipidemia Hypertension Surgical History Surgical history unknown Social History Smoking Status: Current every day smoker Smoking Status: Current every day smoker tobacco type: cigarettes Substance Use Type: does not use Exam <NGOC Rhoades - Last Filed: 02/01/21 20:05> Narrative Exam Narrative: Independently reviewed vitals signs and nursing notes. General: Awake, alert, nontoxic, no cardiorespiratory distress Head/Neck: Atraumatic, neck full range of motion Eyes: EOMI, conjunctiva normal Nose: nares patent, no rhinorrhea Mouth/Throat: moist mucus membranes, posterior pharynx normal, no oral lesions Cardio: Regular rate and rhythm, no peripheral edema Respiratory: respirations unlabored, she does have rales and rhonchi, respirations are at a regular rate and rhythm, no accessory muscle use GI: Abdomen soft, nontender MSK: Moves all extremities, neurovascularly intact, full range of motion present in right lower extremity, no pain over medial or lateral malleoli of right ankle, pulses palpable bilaterally 2+ DP and PT pulses, capillary refill is less than 2 seconds. Right ankle with 2+ edema, left ankle with trace edema, right ankle edema is pitting. Patient denies calf pain with palpation bilaterally. Skin: Normal capillary refill, no rash Neuro: Normal speech and cognition, normal gait Initial Vital Signs Initial Vital Signs: Vital Signs Temperature 98.0 F 02/01/21 18:16 Pulse Rate 71 02/01/21 18:16 Respiratory Rate 16 02/01/21 18:16 Blood Pressure 144/78 H 02/01/21 18:16 Pulse Oximetry 99 02/01/21 18:16 <Marge Banks MD - Last Filed: 02/01/21 22:22> Initial Vital Signs Initial Vital Signs: Vital Signs Temperature 98.0 F 02/01/21 18:16 Pulse Rate 71 02/01/21 18:16 Respiratory Rate 16 02/01/21 18:16 Blood Pressure 144/78 H 02/01/21 18:16 Pulse Oximetry 99 02/01/21 18:16 Scores <NGOC Rhoades - Last Filed: 02/01/21 20:05> Acosta' Criteria for DVT Active Cancer (Treatment within 6 months): No Bedridden recently >3 days or major surgery within 4 weeks: No Calf Swelling >3cm compared to other leg: No Collateral (nonvericose) superficial veins present: No Entire leg swollen: No Localized tenderness along the deep vein system: No Pitting edema, confined to symtomatic leg: Yes Paralysis, paresis, or recent plaster immobilization of ext: No Previously documented DVT: No Alternative dx to DVT as likely or more likely: No Allison criteria for DVT: 1 <Marge Banks MD - Last Filed: 02/01/21 22:22> Wells' Criteria for DVT Wells' criteria for DVT: 1 Course <NGOC Rhoades - Last Filed: 02/01/21 20:05> Orders Ordered: ED Orders 02/01/21 18:20 XR ankle RT min 3V Stat 02/01/21 18:26 US periph venous low extrem rt Stat 02/01/21 19:57 XR chest 1V Stat 02/01/21 20:05 COVID19 -Nasal swab/Pre-Proc Stat 02/01/21 20:15 Complete Blood Count AUTO DIFF Stat Comprehensive Metabolic Panel Stat Discontinued Medications Acetaminophen (Acetaminophen 325 Mg Tablet) 650 mg PO NOW ONE Stop: 02/01/21 20:29 Last Admin: 02/01/21 20:33 Dose: 650 mg Documented by: ANDRÉS Vital Signs Vital signs: Vital Signs - 8 hr 02/01/21 18:16 Temperature 98.0 F Pulse Rate 71 Respiratory Rate 16 Blood Pressure 144/78 H Pulse Oximetry 99 <Marge Banks MD - Last Filed: 02/01/21 22:22> Orders Ordered: ED Orders 02/01/21 18:20 XR ankle RT min 3V Stat 02/01/21 18:26 US periph venous low extrem rt Stat 02/01/21 19:57 XR chest 1V Stat 02/01/21 20:05 COVID19 -Nasal swab/Pre-Proc Stat 02/01/21 20:15 Complete Blood Count AUTO DIFF Stat Comprehensive Metabolic Panel Stat Discontinued Medications Acetaminophen (Acetaminophen 325 Mg Tablet) 650 mg PO NOW ONE Stop: 02/01/21 20:29 Last Admin: 02/01/21 20:33 Dose: 650 mg Documented by: ANDRÉS Vital Signs Vital signs: Vital Signs - 8 hr 02/01/21 18:16 Temperature 98.0 F Pulse Rate 71 Respiratory Rate 16 Blood Pressure 144/78 H Pulse Oximetry 99 MDM - Extremity (Nontraumatic) <NGOC Rhoades - Last Filed: 02/01/21 20:05> Lab Data Result diagrams: 02/01/21 20:15 02/01/21 20:15 Labs: Lab Results 02/01/21 02/01/21 02/01/21 Range/Units 20:05 20:15 20:15 WBC 9.5 (4.5-11.0) X10^3/uL RBC 4.37 (4.0-5.2) X10^6/uL Hgb 13.4 (12.0-16.0) g/dL Hct 39.3 (36-46) % MCV 89.9 (80-100) fL MCH 30.6 (26-34) PG MCHC 34.0 (30-36) % RDW 13.3 (11.6-14.8) % Plt Count 307 (150-400) X10^3/uL Neut % (Auto) 62.4 (50-75) % Lymph % (Auto) 25.4 (25-40) % Knott % (Auto) 9.7 (3-14) % Eos % (Auto) 2.0 (2-4) % Baso % (Auto) 0.5 (0-2) % Neut # (Auto) 5900 (3244-0951) /uL Lymph # (Auto) 2400 (4605-1054) /uL Knott # (Auto) 900 (0-900) /uL Eos # (Auto) 200 (0-450) /uL Baso # (Auto) 100 (0-100) /uL Sodium 139 (137-145) mmol/L Potassium 4.0 (3.4-5.1) mmol/L Chloride 102 (98-107) mmol/L Carbon Dioxide 28 (22-32) mmol/L BUN 18 H (7-17) mg/dL Creatinine 0.93 (0.52-1.04) mg/dL Estimated GFR > 60.0 (>60) mL/min BUN/Creatinine Ratio 19.4 (6-22) Glucose 148 H (80-110) mg/dL Calcium 10.0 (8.4-10.2) mg/dL Total Bilirubin 0.4 (0.2-1.3) mg/dL AST 20 (14-36) IU/L ALT 23 (<35) IU/L Alkaline Phosphatase 63 (38-126) U/L Total Protein 6.8 (6.3-8.2) g/dL Albumin 4.2 (3.5-5.0) g/dL Globulin 2.6 (1.7-4.1) g/dL Albumin/Globulin Ratio 1.6 (1.0-2.8) SARS-CoV-2 (PCR) Negative (Negative) Imaging Data Extremity x-ray #1: Radiologist's Impression: PROCEDURE: XR ANKLE RT MIN 3V INDICATIONS: rt ankle swelling TECHNIQUE: 3 views of the ankle were acquired. COMPARISON: None. FINDINGS: Bones: No acute fractures or dislocations. Ankle mortise is normally aligned. No suspicious bony lesions. A small plantar calcaneal enthesophyte is present. Soft tissues: Soft tissue edema is seen surrounding the ankle. IMPRESSION: No acute osseous abnormality. If clinical suspicion and/or symptoms persist, additional imaging with repeat plain films, or advanced imaging (e.g. CT, MRI) may be helpful for further assessment. Dictated by: Felix Paiz M.D. on 02/01/2021 at 18:46 Approved by: Felix Paiz M.D. on 02/01/2021 at 18:50 US - DVT: Radiologist's Impression: PROCEDURE: US PERIPH VENOUS LOW EXTREM RT INDICATIONS: SWELLING TECHNIQUE: Real-time imaging, as well as color and pulse Doppler interrogation, were performed of the lower extremity deep veins from the inguinal ligament to the popliteal fossa. COMPARISON: None. FINDINGS: The common femoral, femoral and popliteal veins are normally compressible, and free of intraluminal thrombus. Color and pulse Doppler demonstrate normal phasic intraluminal flow. There is normal augmentation response to distal compression maneuver. IMPRESSION: No sonographic evidence of deep venous thrombosis in the right lower extremity. Dictated by: Felix Paiz M.D. on 02/01/2021 at 19:55 Approved by: Felix Paiz M.D. on 02/01/2021 at 19:56 MDM Narrative Medical decision making narrative: 65-year-old female presents to emergency department by EMS for right ankle swelling over the last week without known in jury. Patient's exam reflects 2+ edema to right lower extremity, patient was nontender over malleoli, no ecchymosis or point tenderness to right lower extremity. X-ray of right ankle three views was negative for acute osseous abnormality. Because patient has a history of CVA and is not on any blood thinners, has decreased mobility secondary to CVA deficits and RT sided weakness, an ultrasound DVT duplex was ordered for her right lower extremity which shows: Initial ddx to include but not limited to [] [Vitals exam] ED workup to include [] [Tx] [Dispo] <Marge Banks MD - Last Filed: 02/01/21 22:22> Lab Data Labs: Lab Results 02/01/21 02/01/21 02/01/21 Range/Units 20:05 20:15 20:15 WBC 9.5 (4.5-11.0) X10^3/uL RBC 4.37 (4.0-5.2) X10^6/uL Hgb 13.4 (12.0-16.0) g/dL Hct 39.3 (36-46) % MCV 89.9 (80-100) fL MCH 30.6 (26-34) PG MCHC 34.0 (30-36) % RDW 13.3 (11.6-14.8) % Plt Count 307 (150-400) X10^3/uL Neut % (Auto) 62.4 (50-75) % Lymph % (Auto) 25.4 (25-40) % Knott % (Auto) 9.7 (3-14) % Eos % (Auto) 2.0 (2-4) % Baso % (Auto) 0.5 (0-2) % Neut # (Auto) 5900 (5141-4014) /uL Lymph # (Auto) 2400 (7355-5066) /uL Knott # (Auto) 900 (0-900) /uL Eos # (Auto) 200 (0-450) /uL Baso # (Auto) 100 (0-100) /uL Sodium 139 (137-145) mmol/L Potassium 4.0 (3.4-5.1) mmol/L Chloride 102 (98-107) mmol/L Carbon Dioxide 28 (22-32) mmol/L BUN 18 H (7-17) mg/dL Creatinine 0.93 (0.52-1.04) mg/dL Estimated GFR > 60.0 (>60) mL/min BUN/Creatinine Ratio 19.4 (6-22) Glucose 148 H (80-110) mg/dL Calcium 10.0 (8.4-10.2) mg/dL Total Bilirubin 0.4 (0.2-1.3) mg/dL AST 20 (14-36) IU/L ALT 23 (<35) IU/L Alkaline Phosphatase 63 (38-126) U/L Total Protein 6.8 (6.3-8.2) g/dL Albumin 4.2 (3.5-5.0) g/dL Globulin 2.6 (1.7-4.1) g/dL Albumin/Globulin Ratio 1.6 (1.0-2.8) SARS-CoV-2 (PCR) Negative (Negative) MDM Narrative Medical decision making narrative: 65-year-old female presents to emergency department by EMS for right ankle swelling over the last week without known injury. Patient's exam reflects 2+ edema to right lower extremity, patient was nontender over malleoli, no ecchymosis or point tenderness to right lower extremity. X-ray of right ankle three views was negative for acute osseous abnormality. Because patient has a history of CVA and is not on any blood thinners, has decreased mobility secondary to CVA deficits and RT sided we akness, an ultrasound DVT duplex was ordered for her right lower extremity DVT workup for the lower extremity is unremarkable. Patient reports no specific trauma. There is no inflammation or erythema, no suggestion of cellulitis. of slight cough and mild wheeze appreciated on physical exam blood work and chest x-ray were also done. Equally unremarkable. No evidence of pulmonary embolism, ankle fracture, DVT or any type of infectious disease. All these findings are shared with the patient and she is safe for home discharge. Transportation is called. Discharge Plan Departure Patient Disposition: Home Clinical Impression: Edema of right lower leg, Cough Ankle pain, right Qualifiers: Chronicity: acute Qualified Code(s): M25.571 - Pain in right ankle and joints of right foot Instructions: DI for Ankle Pain Activity Restrictions/Additional Instructions: Thank you for coming in today I am sorry that your right ankle is bothering you and is slightly swollen. The x-rays do not suggest that you have any bony injury underneath. There is no suggestion of cellulitis or developing infection and no blood clot in your leg. You have a slight cough and some minor crackles in your lungs. Blood work was done and was very reassuring. You have no other evidence for infection. Chest x-ray showed healthy lungs with no evidence of pneumonia. If you have new or worsening symptoms, please feel free to return to the ER. I hope you feel better Prescriptions: No Action atorvastatin 40 MG tablet 40 mg PO HS Qty: 0 RF: 0 bupropion HCl [Wellbutrin SR] 100 MG tablet extended release 12 hr 100 mg PO BID Qty: 0 RF: 0 amlodipine 10 MG tablet 10 mg PO QDAY Qty: 0 RF: 0 metoprolol tartrate 50 MG tablet 50 mg PO BID Qty: 0 RF: 0 prazosin [Minipress] 1 MG capsule 1 mg PO HS Qty: 0 RF: 0 omeprazole 20 MG capsule,delayed release(DR/EC) 20 mg PO QDAY Qty: 0 RF: 0 cholecalciferol (vitamin D3) [Vitamin D3] 1,000 UNIT tablet 1,000 iu PO QDAY Qty: 0 RF: 0 insulin asp prt-insulin aspart [Novolog Mix 70-30FlexPen U-100] 100 UNIT/1 ML insulin pen 10 u SQ BIDCC Qty: 0 RF: 0 lisinopril 20 MG tablet 40 mg PO QDAY Qty: 30 RF: 0 aspirin 325 MG tablet,delayed release (DR/EC) 325 mg PO QDAY Qty: 30 RF: 0 metformin [Glucophage] 500 MG tablet 1,000 mg PO BIDCC Qty: 60 RF: 0 Referrals: Merle Antonio MD [Primary Care Provider] -
--- NOTE | 2021-02-01 19:57 | DI.RAD.S_ITS ---
PROCEDURE: XR CHEST 1V INDICATIONS: wheeze/rhonchi TECHNIQUE: One view of the chest was acquired. COMPARISON: [facility], , CHEST 1 VIEW, 06/30/2016, 9:20. FINDINGS: Surgical changes and devices: None. Lungs and pleura: Lungs are clear. No pleural effusions or pneumothorax. Mediastinum: Mediastinal contours appear normal. Heart size is normal. Bones and chest wall: No suspicious bony lesions. Overlying soft tissues appear unremarkable. IMPRESSION: No acute cardiopulmonary abnormality. Dictated by: Felix Paiz M.D. on 02/01/2021 at 20:15 Approved by: Felix Paiz M.D. on 02/01/2021 at 20:16
[2021-02-01 20:22] LABS: Add Manual Diff / Slide Review NO; Basophils Absolute Auto 100 /uL (0-100); Basophils Percent Auto 0.5 % (0-2); Eosinophils Absolute Auto 200 /uL (0-450); Hematocrit 39.3 % (36-46); Hemoglobin 13.4 g/dL (12.0-16.0); Lymphocytes Absolute Auto 2400 /uL (1100-4500); Lymphocytes Percent Auto 25.4 % (25-40); Mean Corpuscular Hemoglobin 30.6 PG (26-34); Mean Corpuscular Volume 89.9 fL (80-100); Monocytes Absolute Auto 900 /uL (0-900); Monocytes Percent Auto 9.7 % (3-14); Neutrophils Absolute Auto 5900 /uL (1500-7000); Neutrophils Percent Auto 62.4 % (50-75); Platelet Count 307 X10^3/uL (150-400); Red Blood Cell Count 4.37 X10^6/uL (4.0-5.2); Red Cell Distribution Width 13.3 % (11.6-14.8); White Blood Cell Count 9.5 X10^3/uL (4.5-11.0)
[2021-02-01 20:29] LABS: COVID19 -Nasal RAPID Negative (Negative)
[2021-02-01] MEDS: ACETAMINOPHEN 325 MG TABLET 650 MG PO (20:33)
[2021-02-01 20:39] LABS: Alanine Aminotransferase 23 IU/L (<35); Albumin 4.2 g/dL (3.5-5.0); Albumin Globulin Ratio 1.6 (1.0-2.8); Alkaline Phosphatase 63 U/L (38-126); Aspartate Aminotransferase 20 IU/L (14-36); BUN Creatinine Ratio 19.4 (6-22); Bilirubin Total 0.4 mg/dL (0.2-1.3); Blood Urea Nitrogen 18 mg/dL (7-17); Carbon Dioxide 28 mmol/L (22-32); Chloride 102 mmol/L (98-107); Estimated Glomerular Filt Rate > 60.0 mL/min (>60); Globulin 2.6 g/dL (1.7-4.1); Glucose 148 mg/dL (80-110); HEMOLYSIS < 15 (0-50); Sodium 139 mmol/L (137-145); Total Protein 6.8 g/dL (6.3-8.2)
--- NOTE | 2021-02-01 21:18 | PC.NURSE ---
Glynn staff member from [facility] called for pt update. he was updated and now aware of pt's possible discharge. Facility has no transportation at this time.
[2021-02-01 22:51] VITALS: BP 132/63; PULSE 76; RESP 18; TEMP 37; O2SAT 95
== END 2021-02-01 22:54 | disposition home or self-care (01) ==
PROVIDERS: Emergency Provider Emergency Medicine; Family Provider Family Medicine; PCP Family Medicine
DX: R60.0 Localized edema (principal); M25.571 Pain in right ankle and joints of right foot; R05.9 Cough, unspecified; Z20.822 Contact with and (suspected) exposure to COVID-19
CPT/HCPCS: 36415; 71045; 73610; 80053; 85025; 87635; 93971; 99284; C9803

== ENCOUNTER → 2022-06-28 14:57 | Outpatient (CLI) | payer MEDICAID, OTHER, SELFPAY ==
--- NOTE | 2022-06-28 15:00 | DI.MG.S_ITS ---
BILATERAL DIGITAL SCREENING MAMMOGRAM 3D/2D WITH CAD: 06/28/2022 CLINICAL: Routine screening. New Baseline exam. Comparison is made to exam dated: 12/23/2013 mammogram - [facility]. There are scattered areas of fibroglandular density in both breasts (category b / 25%-50% glandular tissue). Current study was also evaluated with a Computer Aided Detection (CAD) system. No significant masses, calcifications, or other findings are seen in either breast. There has been no significant interval change. IMPRESSION: NEGATIVE There is no mammographic evidence of malignancy. A 1 year screening mammogram is recommended. Based on the Tyrer Cuzick model (a risk assessment model) the patient's lifetime risk is 7.1% and her 10 year risk is 3.3%. According to the ACR, ACS, and NCCN guidelines, an annual breast MRI exam along with mammogram is recommended if the patient's lifetime risk is 20% or greater. This exam was interpreted at Station ID: [id number]. NOTE: For mammograms, a report in lay terms will be sent to the patient. Approximately 15% of breast malignancies will not be visualized mammographically. In the management of a palpable breast mass, a negative mammogram must not discourage biopsy of a clinically suspicious lesion. Electronically Signed By: Clarence tee/valeria:07/01/2022 09:28:41 letter sent: Normal Exam ACR BI-RADS Category 1: Negative [id number]
== END ==
PROVIDERS: Family Provider Family Medicine; PCP Family Medicine; Referring Provider Family Medicine; Visit Provider Family Medicine
DX: Z12.31 Encounter for screening mammogram for malignant neoplasm of breast (principal)
CPT/HCPCS: 77063; 77067

== ENCOUNTER → 2022-10-09 14:58 | Outpatient (CLI) | payer MEDICARE, MEDICAID, OTHER, SELFPAY ==
--- NOTE | 2022-10-09 | DI.RAD.S_ITS ---
PROCEDURE: XR STERNUM MIN 2V INDICATIONS: Cutaneous abscess of chest wall TECHNIQUE: 2 views of the sternum acquired. COMPARISON: None. FINDINGS: Bones: No fractures or dislocations. No suspicious bony lesions. Soft tissues: Retrosternal soft tissues appear normal. IMPRESSION: No acute fracture. No osseous lesion. If symptoms and/or clinical suspicion for pathology persist, further assessment with repeat, or advanced imaging (e.g., CT, MRI, or bone scan) may be helpful for further assessment. Dictated by: Rukhsana Boo M.D. on 10/09/2022 at 16:19 Transcribed by: XENIA on 10/09/2022 at 16:19 Approved by: Rukhsana Boo M.D. on 10/09/2022 at 16:40
== END ==
PROVIDERS: Family Provider Family Medicine; PCP Family Medicine; Referring Provider Family Medicine; Visit Provider Family Medicine
DX: L02.213 Cutaneous abscess of chest wall (principal)
CPT/HCPCS: 71120

== ENCOUNTER 2023-02-27 10:30 | Outpatient (RCR) | payer MEDICARE, MEDICAID, OTHER, SELFPAY ==
--- NOTE | 2022-10-11 16:00 | OT.OP.EVAL ---
Visit Care Team Role Provider Type Merle Antonio MD Attending Provider Non-Staff Family Provider Primary Care Provider Referring Provider Specialty: Family Practice Address: [address] [place] [address] [place], [address] Email: Occupational Therapy Initial Evaluation OT Outpatient Adult Evaluation Start: 10/16/22 15:39 Freq: Status: Active Protocol: Document 10/11/22 16:00 AMS (Rec: 10/16/22 16:05 AMS [id number]) General Information - Adult Visit Number Eval Plan of Care Dates 10/11/22 - 01/03/23 Insurance Information Medicaid; EVAL CHARGE ONLY -> 24 OT units/8 visits at 3 units per visit PCY Visit Start Time 10:00 Visit Stop Time 10:45 Total Visit Minutes 45 Treatment Setting Outpatient Care Note Type Initial Evaluation Identification Confirmed Yes Identification Confirmed By Self Goals Short Term Goals 1. Barbara will demonstrate 9 .0# of force with dynamometer II R supervisor bakery sanitation strength test. Half-Way Goals 1. Barbara will be modified independent with execution of home exercise program utilizing provided written/ visual instructions from therapist w/ support of caregivers. 2. Barbara will be able to indicate active incorporation of the R hand with completion of 1 to 2 functional tasks on a daily basis. Assessment/Plan Treatment Assessment Barbara is a 67 year-old woman referred to outpatient OT secondary to residual right sided hemiplegia. Medical history is significant for DM II, HTN, HLD, L hip replacement, and severe aphasia. She has been referred to outpatient AUTOMOTIVE SALES ASSOCIATE here at [facility] as well. She resides at [facility]; she is dependent with community mobility and utilizes a standard manual w/c . Nonverbally communicated 4 out of 10 on Body Pain Assessment Grid versus 9 out of 10 on Hand/Wrist Pain Assessment Grid relative to distal R hand. QuickDASH UE Outcome Measure Score = 88.64. Denial of use of R UE sling and/or splint (day or night time use). Indicated that she needs assistance w/ ADLS and is independent w/ functional transfers at [facility] ( from manual w/c equipped w/ cushion and R w/c brake extension). She indicated that she does not use mobility AE. Supervision w/ functional transfers w/c <-> EOM. Full passive ROM of all digits of the R hand. L UE AROM WFL. -30 degrees active R elbow ext; 135 degrees active R elbow flexion; 75 degrees active R forearm supination; Full R active R forearm pronation; 75 degrees active R sh flex versus 105 degrees passive R sh flex; 65 degrees active R sh abduction versus 90 degrees passive R sh abduction; 35 degrees active R sh ext versus 50 degrees passive R sh ext; Full R IR; 0 degrees active R ER; 75 degrees active R wrist ext; 0 degrees active R wrist flexion versus 60 degrees passive R wrist flexion. 7.0# of force w/ R supervisor bakery sanitation and 73.0# of force w/ L supervisor bakery sanitation w/ dynamometer II testing. Good orientation to midline w/ L and R trunk leans/weight shift . Danella would likely benefit from skilled outpatient OT to address R UE range of motion, motor planning, proprioceptive /kinesthetic awareness, active incorporation of the R UE, tone management, and to establish HEP. Further information needs to be gathered from place of residence to establish functional baseline. In addition, further observations of functional abilities is needed to establish baseline and establish appropriate goals (including functional movement patterns). Length of treatment (weeks) 12 Plan of Care Start Date 10/11/22 Plan of Care End Date 01/03/23 Treatment Frequency Once a Week Therapeutic Contents Active Range of Motion, Adaptive Equipment Education, Client Education,Cognitive Skills Development,Functional Activities,Home Exercise Program,Joint Protection, Manual Therapy,Education, Neurodevelopment Treatment, Neuromuscular Re-Education, Self-Care,Stretching/ Flexibility Activities, Therapeutic Activities, Therapeutic Exercises
--- NOTE | 2022-10-25 14:21 | OT.OP.TRT ---
Visit Care Team Role Provider Type Merle Antonio MD Attending Provider Non-Staff Family Provider Primary Care Provider Referring Provider Specialty: Family Practice Address: [address] [place] [address] [place], [address] Email: Occupational Therapy Treatment Note OT Outpatient Treatment Note - Adult Start: 10/16/22 15:39 Freq: Status: Active Protocol: Document 10/25/22 14:09 AMS (Rec: 10/25/22 14:21 AMS [id number]) OT Outpatient Adult Treatment Note Session Time Visit Start Time 08:30 Visit Stop Time 09:15 Total Visit Minutes 45 Visit Information Visit Number 05/02 visits --> KX visit Plan of Care Dates 10/11/22 - 01/03/23 Insurance Information Medicare Setting Treatment Setting Outpatient Care Visit Type Note Type Treatment Note General Information General Information Barbara is a 67 year-old woman referred to outpatient OT secondary to residual right sided hemiplegia. Medical history is significant for DM II, HTN, HLD, L hip replacement, and severe aphasia. She has been referred to outpatient ELECTRICAL INSPECTOR here at [facility] as well. She resides at [facility]; she is dependent with community mobility and utilizes a standard manual w/c . - Subjective Identification Type Name Observations No new concerns were indicated . - Objective Objective Measurements Please refer to below for progress towards meeting established OT goals: Short Term Goals 1. Barbara will demonstrate 9 .0# of force with dynamometer II R fabric coating supervisor strength test. Bale Stacker Goals 1. Barbara will be modified independent with execution of home exercise program utilizing provided written/ visual instructions from therapist w/ support of caregivers. 2. Barbara will be able to indicate active incorporation of the R hand with completion of 1 to 2 functional tasks on a daily basis. - Exercises 3 Descriptor R UE weight bearing. Tone management. Use of 5-inch diameter ball. Facilitation of wrist/digit extension. 2 Descriptor Cane. B sh flexion. 2 x 10. B sh hor abd/add. 2 x 10. Min phys assistance to facilitate. 1 Descriptor Supine R UE strengthening exercises. Sh ext. 2 x 10. [place] green medium resistance TB w/ handle . Chest press. 2 x 10. [place] green medium resistance TB w/ handle. Elbow ext. 2 x 10. [place] green medium resistance TB w/ handle . - Assessment Assessment of Improvement Advanced therapeutic exercises ; (+) response to progressive tone management exercises w/ wrist and digits in extension; progressed from use of approx 5-inch ball supine --> standing WB at TT w/ forward < -> backwards, left <-> right 1 x 10 repetitions each exercise. Decreased coordinated movement of shoulder; min phys assist to execute circles in both directions while supine on mat . Overall, good session. Danella would likely benefit from skilled outpatient OT to address R UE range of motion, motor planning, proprioceptive /kinesthetic awareness, active incorporation of the R UE, tone management, and to establish HEP. Further information needs to be gathered from place of residence to establish functional baseline. In addition, further observations of functional abilities is needed to establish baseline and establish appropriate goals (including functional movement patterns). - Plan Therapy Recommendations Continue with Current Program, Advance per Rehabilitation Protocol
--- NOTE | 2022-11-05 11:07 | OT.OP.TRT ---
Visit Care Team Role Provider Type Merle Antonio MD Attending Provider Non-Staff Family Provider Primary Care Provider Referring Provider Specialty: Family Practice Address: [address] [place] [address] [place], [address] Email: Occupational Therapy Treatment Note OT Outpatient Treatment Note - Adult Start: 10/16/22 15:39 Freq: Status: Active Protocol: Document 11/05/22 10:52 AMS (Rec: 11/05/22 11:06 AMS [id number]) OT Outpatient Adult Treatment Note Session Time Visit Start Time 08:30 Visit Stop Time 09:15 Total Visit Minutes 45 Visit Information Visit Number 06/30 visits --> KX 20th visit Plan of Care Dates 10/11/22 - 01/03/23 Insurance Information Medicare Setting Treatment Setting Outpatient Care Visit Type Note Type Treatment Note General Information General Information Barbara is a 67 year-old woman referred to outpatient OT secondary to residual right sided hemiplegia. Medical history is significant for DM II, HTN, HLD, L hip replacement, and severe aphasia. She has been referred to outpatient APPLIED SCIENCE AND TECHNOLOGIES DEAN here at [facility] as well. She resides at [facility]; she is dependent with community mobility and utilizes a standard manual w/c . - Subjective Identification Type Name Observations No new concerns were indicated . - Objective Objective Measurements Please refer to below for progress towards meeting established OT goals: Short Term Goals 1. Barbara will demonstrate 9 .0# of force with dynamometer II R bowl turner strength test. Pit Hoist Operator Goals 1. Barbara will be modified independent with execution of home exercise program utilizing provided written/ visual instructions from therapist w/ support of caregivers. 2. Barbara will be able to indicate active incorporation of the R hand with completion of 1 to 2 functional tasks on a daily basis. - Exercises 5 Descriptor Seated UE AROM. Scapular retraction. 2 x 10. Backwards sh shrugs. 2 x 10. Scapular retraction combined w / elbow ext and sh ext. 2 x 10 . 4 Descriptor ROM/PROM/Supine on mat. L hip -> R body of space to R of body; PNF diagonal. 2 x 10. Min phys assist to facilitate . Passive ER provided by therapist. Shoulder circles w/ elbow in ext. CW 1 x 10. CCW 1 x 10. CGA to intermittent phys assist to facilitate. 3 Descriptor R UE weight bearing. Tone management. L <-> R weight shifting while in standing at TT. 2 x 10. 2 Descriptor Cane. ROM. Strengthening. B sh flexion. 2 x 10. 2# ankle weight. B sh hor abd/add. 2 x 10. Min phys assistance to facilitate. 1 Descriptor Supine R UE strengthening exercises. Sh ext. 2 x 10. [place] green medium resistance TB w/ handle . Chest press. 2 x 10. [place] green medium resistance TB w/ handle. Elbow ext. 2 x 10. [place] green medium resistance TB w/ handle . - Assessment Assessment of Improvement Advanced therapeutic exercises /activities; cont difficulty maintaining elbow extension and executing w/ smooth motor movement patterns w/ execution of sh circles while in supine . Min phys assist to facilitate execution of PNF diagonal in supine. Overall, good session. Danella would likely benefit from skilled outpatient OT to address R UE range of motion, motor planning, proprioceptive /kinesthetic awareness, active incorporation of the R UE, tone management, and to establish HEP. Further information needs to be gathered from place of residence to establish functional baseline. In addition, further observations of functional abilities is needed to establish baseline and establish appropriate goals (including functional movement patterns). - Plan Therapy Recommendations Continue with Current Program, Advance per Rehabilitation Protocol
--- NOTE | 2022-11-13 11:57 | OT.OP.TRT ---
Visit Care Team Role Provider Type Merle Antonio MD Attending Provider Non-Staff Family Provider Primary Care Provider Referring Provider Specialty: Family Practice Address: [address] [place] [address] [place], [address] Email: Occupational Therapy Treatment Note OT Outpatient Treatment Note - Adult Start: 10/16/22 15:39 Freq: Status: Active Protocol: Document 11/13/22 11:53 AMS (Rec: 11/13/22 11:57 AMS [id number]) OT Outpatient Adult Treatment Note Session Time Visit Start Time 08:30 Visit Stop Time 09:23 Total Visit Minutes 53 Visit Information Visit Number 07/31 visits --> KX 20th visit Plan of Care Dates 10/11/22 - 01/03/23 Insurance Information Medicare Setting Treatment Setting Outpatient Care Visit Type Note Type Treatment Note General Information General Information Barbara is a 67 year-old woman referred to outpatient OT secondary to residual right sided hemiplegia. Medical history is significant for DM II, HTN, HLD, L hip replacement, and severe aphasia. She has been referred to outpatient ACCOUNTS RECEIVABLE COORDINATOR here at [facility] as well. She resides at [facility]; she is dependent with community mobility and utilizes a standard manual w/c . - Subjective Identification Type Name Observations No new concerns were indicated . Name Preference: Pawel. - Objective Objective Measurements Please refer to below for progress towards meeting established OT goals: Short Term Goals 1. Barbara will demonstrate 9 .0# of force with dynamometer II R shirt maker strength test. Curb Builder Goals 1. Barbara will be modified independent with execution of home exercise program utilizing provided written/ visual instructions from therapist w/ support of caregivers. 2. Barbara will be able to indicate active incorporation of the R hand with completion of 1 to 2 functional tasks on a daily basis. - Exercises 5 Descriptor Seated UE AROM. Scapular retraction. 2 x 10. Backwards sh shrugs. 2 x 10. Scapular retraction combined w / elbow ext and sh ext. 2 x 10 . 4 Descriptor ROM/PROM/Supine on mat. L hip -> R body of space to R of body; PNF diagonal. 2 x 10. Min phys assist to facilitate . ER supine/elbow at side. 2 x 10. Blocking provided by therapist to facilitate. Shoulder circles w/ elbow in ext. CW 2 x 10. CCW 2 x 10. Min phys assist to facilitate. 3 Descriptor R UE weight bearing. Tone management. L <-> R weight shifting while in standing at TT. 2 x 10. 2 Descriptor Cane. ROM. Strengthening. B sh flexion. 2 x 10. 2# ankle weight. B sh hor abd/add. 2 x 10. Min phys assistance to facilitate. 1 Descriptor Supine R UE strengthening exercises. Sh ext. 2 x 10. [place] green medium resistance TB w/ handle . Chest press. 2 x 10. [place] green medium resistance TB w/ handle. Elbow ext. 2 x 10. [place] green medium resistance TB w/ handle . - Assessment Assessment of Improvement Cont difficulty motor planning sh circles while supine in both directions; assist to support size of circles being formed as well as to encourage maintenace of elbow ext. Cont min phys assist required to facilitate execution of PNF diagonal in supine. Blocking/ phys assist provided to facilitate ER in supine w/ maintenance of elbow at side. Overall, good session. Danella would likely benefit from skilled outpatient OT to address R UE range of motion, motor planning, proprioceptive /kinesthetic awareness, active incorporation of the R UE, tone management, and to establish HEP. Further information needs to be gathered from place of residence to establish functional baseline. In addition, further observations of functional abilities is needed to establish baseline and establish appropriate goals (including functional movement patterns). - Plan Therapy Recommendations Continue with Current Program, Advance per Rehabilitation Protocol
--- NOTE | 2022-11-22 13:24 | OT.OP.TRT ---
Visit Care Team Role Provider Type Merle Antonio MD Attending Provider Non-Staff Family Provider Primary Care Provider Referring Provider Specialty: Family Practice Address: [address] [place] [address] [place], [address] Email: Occupational Therapy Treatment Note OT Outpatient Treatment Note - Adult Start: 10/16/22 15:39 Freq: Status: Active Protocol: Document 11/22/22 13:18 AMS (Rec: 11/22/22 13:23 AMS [id number]) OT Outpatient Adult Treatment Note Session Time Visit Start Time 10:45 Visit Stop Time 11:40 Total Visit Minutes 55 Visit Information Visit Number 08/30 visits --> KX 20th visit Plan of Care Dates 10/11/22 - 01/03/23 Insurance Information Medicare Setting Treatment Setting Outpatient Care Visit Type Note Type Treatment Note General Information General Information Barbara is a 67 year-old woman referred to outpatient OT secondary to residual right sided hemiplegia. Medical history is significant for DM II, HTN, HLD, L hip replacement, and severe aphasia. She has been referred to outpatient SOCIAL SERVICES ASSISTANT here at [facility] as well. She resides at [facility]; she is dependent with community mobility and utilizes a standard manual w/c . - Subjective Identification Type Name Observations No new concerns were indicated . Name Preference: Pawel. - Objective Objective Measurements Please refer to below for progress towards meeting established OT goals: Short Term Goals 1. Barbara will demonstrate 9 .0# of force with dynamometer II R motor vehicle light assembler strength test. Ups Driver Goals 1. Barbara will be modified independent with execution of home exercise program utilizing provided written/ visual instructions from therapist w/ support of caregivers. 2. Barbara will be able to indicate active incorporation of the R hand with completion of 1 to 2 functional tasks on a daily basis. - Exercises 5 Descriptor Seated UE AROM. Scapular retraction. 2 x 10. Backwards sh shrugs. 2 x 10. Scapular retraction combined w / elbow ext and sh ext. 2 x 10 . 4 Descriptor ROM/PROM/Supine on mat. L hip -> R body of space to R of body; PNF diagonal. 2 x 10. Min phys assist to facilitate . ER supine/elbow at side. 2 x 10. Blocking provided by therapist to facilitate. Shoulder circles w/ elbow in ext. CW 2 x 10. CCW 2 x 10. Min phys assist to facilitate. Completed small --> then large. 3 Descriptor R UE weight bearing. Tone management. L <-> R weight shifting while in sitting. 2 x 10. 2 Descriptor Cane. ROM. Strengthening. B sh flexion. 2 x 10. 2# ankle weight. B chest press. 2 x 10. 2# ankle weight. 1 Descriptor Supine R UE strengthening exercises. Sh ext. 2 x 10. TB#3. Use of handle. Elbow ext. 2 x 10. TB #3. Use of handle. - Assessment Assessment of Improvement Increased resistance w/ R elbow ext, R sh ext therapeutic exercises completed in treatment session . Cont difficulties w/ motor planning sh circles while in supine w/ R UE, despite size of circles (small versus large ). Increased tone into typical moni pattern of UE, including IR, elbow flex. Unable to comfortably position R hand posterior of head despite assist from L UE/hand. Overall , good session. Danella would likely benefit from skilled outpatient OT to address R UE range of motion, motor planning, proprioceptive /kinesthetic awareness, active incorporation of the R UE, tone management, and to establish HEP. Further information needs to be gathered from place of residence to establish functional baseline. In addition, further observations of functional abilities is needed to establish baseline and establish appropriate goals (including functional movement patterns). - Plan Therapy Recommendations Continue with Current Program, Advance per Rehabilitation Protocol
--- NOTE | 2022-11-28 14:45 | OT.OP.TRT ---
Visit Care Team Role Provider Type Merle Antonio MD Attending Provider Non-Staff Family Provider Primary Care Provider Referring Provider Specialty: Family Practice Address: [address] [place] [address] [place], [id number] Email: Occupational Therapy Treatment Note OT Outpatient Treatment Note - Adult Start: 10/16/22 15:39 Freq: Status: Active Protocol: Document 11/28/22 14:39 AMS (Rec: 11/28/22 14:45 AMS [id number]) OT Outpatient Adult Treatment Note Session Time Visit Start Time 13:15 Visit Stop Time 14:00 Total Visit Minutes 45 Visit Information Visit Number 09/30 visits --> KX 20th visit Plan of Care Dates 10/11/22 - 01/03/23 Insurance Information Medicare Setting Treatment Setting Outpatient Care Visit Type Note Type Treatment Note General Information General Information Barbara is a 67 year-old woman referred to outpatient OT secondary to residual right sided hemiplegia. Medical history is significant for DM II, HTN, HLD, L hip replacement, and severe aphasia. She has been referred to outpatient CUSTODIAN BLOOD BANK here at [facility] as well. She resides at [facility]; she is dependent with community mobility and utilizes a standard manual w/c . - Subjective Identification Type Name Observations No new concerns were indicated . Name Preference: Pawel. - Objective Objective Measurements Please refer to below for progress towards meeting established OT goals: Short Term Goals 1. Barbara will demonstrate 9 .0# of force with dynamometer II R reo asset manager strength test. Cork Compounder Goals 1. Barbara will be modified independent with execution of home exercise program utilizing provided written/ visual instructions from therapist w/ support of caregivers. 2. Barbara will be able to indicate active incorporation of the R hand with completion of 1 to 2 functional tasks on a daily basis. - Exercises 6 Descriptor Red flex bar. Assist to obtain R handed grasp. Bending w/ L hand into 'n'. 2 x 10. Assist to obtain/maintain R handed grasp intermittently. Bending w/ L hand into 'u'. 2 x 10. 5 Descriptor Seated UE AROM. Scapular retraction. 2 x 10. TB#2 w/ utilization of handle. Backwards sh shrugs. 2 x 10. Scapular retraction combined w / elbow ext and sh ext. 2 x 10 . 4 Descriptor ROM/PROM/Supine on mat. L hip -> R body of space to R of body; PNF diagonal. 2 x 10. Min phys assist to facilitate . ER supine/elbow at side. 2 x 10. Blocking provided by therapist to facilitate. Shoulder circles w/ elbow in ext. CW 2 x 10. CCW 2 x 10. Min phys assist to facilitate. Completed small --> then large. 3 Descriptor R UE weight bearing. Tone management. L <-> R weight shifting while in sitting. 2 x 10. 2 Descriptor Cane. ROM. Strengthening. B sh flexion. 2 x 10. 2# ankle weight. B chest press. 2 x 10. 2# ankle weight. 1 Descriptor Supine R UE strengthening exercises. Sh ext. 2 x 10. TB#3. Use of handle. Elbow ext. 2 x 10. TB #3. Use of handle. - Assessment Assessment of Improvement When asked, Pawel indicated that she wasn't feeling well today. However, wanted to complete treatment session. Upgraded therapeutic exercises ; introduced seated row w/ resistance w/ utilization of handle w/ tendency into IR/ winging of R elbow. Also introduced maintaining R handed grasp of flex bar to work on reo asset manager strength/ability to maintain grasp. Cont difficulties w/ motor planning sh circles while in supine w/ R UE, despite size of circles (small versus large). Incorporated additional rest breaks/increased length of rest breaks based on feedback from Pawel. Barbara would likely benefit from skilled outpatient OT to address R UE range of motion, motor planning, proprioceptive /kinesthetic awareness, active incorporation of the R UE, tone management, and to establish HEP. Further information needs to be gathered from place of residence to establish functional baseline. In addition, further observations of functional abilities is needed to establish baseline and establish appropriate goals (including functional movement patterns). - Plan Therapy Recommendations Continue with Current Program, Advance per Rehabilitation Protocol
--- NOTE | 2022-12-24 13:57 | OT.OP.TRT ---
Visit Care Team Role Provider Type Merle Antonio MD Attending Provider Non-Staff Family Provider Primary Care Provider Referring Provider Specialty: Family Practice Address: [address] [place] [address] [place], [id number] Email: Occupational Therapy Treatment Note OT Outpatient Treatment Note - Adult Start: 10/16/22 15:39 Freq: Status: Active Protocol: Document 12/24/22 13:49 AMS (Rec: 12/24/22 13:57 AMS [id number]) OT Outpatient Adult Treatment Note Session Time Visit Start Time 12:15 Visit Stop Time 13:00 Total Visit Minutes 45 Visit Information Visit Number 10/30 visits --> KX 20th visit Plan of Care Dates 10/11/22 - 01/03/23 Insurance Information Medicare Setting Treatment Setting Outpatient Care Visit Type Note Type Treatment Note General Information General Information Barbara is a 67 year-old woman referred to outpatient OT secondary to residual right sided hemiplegia. Medical history is significant for DM II, HTN, HLD, L hip replacement, and severe aphasia. She has been referred to outpatient CPA TAX here at [facility] as well. She resides at [facility]; she is dependent with community mobility and utilizes a standard manual w/c . - Subjective Identification Type Name Observations No new concerns were indicated . Name Preference: Pawel. - Objective Objective Measurements Please refer to below for progress towards meeting established OT goals: Short Term Goals 1. Barbara will demonstrate 9 .0# of force with dynamometer II R darkroom technician strength test. Skull Splitter Goals 1. Barbara will be modified independent with execution of home exercise program utilizing provided written/ visual instructions from therapist w/ support of caregivers. 2. Barbara will be able to indicate active incorporation of the R hand with completion of 1 to 2 functional tasks on a daily basis. - Exercises 6 Descriptor Red flex bar. Assist to obtain R handed grasp. Bending w/ L hand into 'n'. 2 x 10. Assist to obtain R handed grasp/modified exercise w/ forearm in supination. Bending w/ L hand into 'u'. 2 x 10. Assist to obtain R handed grasp. Twisting of red flex bar w/ L hand. 2 x 10. 5 Descriptor Seated UE AROM. Scapular retraction. 2 x 10. TB#2 w/ utilization of handle. Backwards sh shrugs. 2 x 10. Scapular retraction combined w / elbow ext and sh ext. 2 x 10 . 4 Descriptor ROM/PROM/Supine on mat. L hip -> R body of space to R of body; PNF diagonal. 2 x 10. Min phys assist to facilitate . ER supine/elbow at side. 2 x 10. Blocking provided by therapist to facilitate. Shoulder circles w/ elbow in ext. CW 2 x 10. CCW 2 x 10. Min phys assist to facilitate. 3 Descriptor R UE weight bearing. Tone management. L <-> R weight shifting while in sitting. 2 x 10. 2 Descriptor Cane. ROM. Strengthening. B sh flexion. 2 x 10. 3# ankle weight. B chest press. 2 x 10. 3# ankle weight. 1 Descriptor Supine R UE strengthening exercises. Sh ext. 2 x 10. TB#3. Use of handle. Elbow ext. 2 x 10. TB #3. Use of handle. - Assessment Assessment of Improvement Upgraded therapeutic exercises , including supine cane flex/ chest press and maintenance of R handed grasp of red flex bar w/ L handed manipulation. Tendency into R sh elevation combined w/ IR w/ seated row TB exercise; tactile cueing to facilitate/encourage alt R elbow flex/ext w/ cane chest press when supine. Increased success w/ maintaining R handed darkroom technician w/ formation of 'u ' w/ R forearm in supination. Phys assist to facilitate R sh circles in both directions; phys assist to facilitate full elbow ext and motor planning of circles at sh level. Overall, good session. Rec trialing scooting w/ active WB thru distal R UE. Danella would likely benefit from skilled outpatient OT to address R UE range of motion, motor planning, proprioceptive /kinesthetic awareness, active incorporation of the R UE, tone management, and to establish HEP. Further information needs to be gathered from place of residence to establish functional baseline. In addition, further observations of functional abilities is needed to establish baseline and establish appropriate goals (including functional movement patterns). - Plan Therapy Recommendations Continue with Current Program, Advance per Rehabilitation Protocol
--- NOTE | 2023-01-10 14:14 | OT.OPPOC ---
Physical, Occupational & Speech Therapy At [facility] Barbara Isaac [id number] 1955 Visit Care Team Role Provider Type Merle Antonio MD Attending Provider Non-Staff Family Provider Primary Care Provider Referring Provider Address: [address] [place] [address] [place], [phone] Occupational Therapy Plan of Care OT Outpatient Adult Evaluation Start: 10/16/22 15:39 Freq: Status: Active Protocol: Document 10/11/22 16:00 AMS (Rec: 10/16/22 16:05 AMS [id number]) General Information - Adult Visit Information Visit Number Eval Plan of Care Dates 10/11/22 - 01/03/23 Insurance Information Medicaid; EVAL CHARGE ONLY -> 24 OT units/8 visits at 3 units per visit PCY Session Time Visit Start Time 10:00 Visit Stop Time 10:45 Total Visit Minutes 45 Setting Treatment Setting Outpatient Care Visit Type Note Type Initial Evaluation Identification Identification Confirmed Yes Identification Confirmed By Self Goals Short Term Goals Short Term Goals 1. Barbara will demonstrate 9 .0# of force with dynamometer II R sanforizer strength test. Box Maker Wood Goals Box Maker Wood Goals 1. Barbara will be modified independent with execution of home exercise program utilizing provided written/ visual instructions from therapist w/ support of caregivers. 2. Barbara will be able to indicate active incorporation of the R hand with completion of 1 to 2 functional tasks on a daily basis. Assessment/Plan Assessment Treatment Assessment Barbara is a 67 year-old woman referred to outpatient OT secondary to residual right sided hemiplegia. Medical history is significant for DM II, HTN, HLD, L hip replacement, and severe aphasia. She has been referred to outpatient PAINTING INSTRUCTOR here at [facility] as well. She resides at [facility]; she is dependent with community mobility and utilizes a standard manual w/c . Nonverbally communicated 4 out of 10 on Body Pain Assessment Grid versus 9 out of 10 on Hand/Wrist Pain Assessment Grid relative to distal R hand. QuickDASH UE Outcome Measure Score = 88.64. Denial of use of R UE sling and/or splint (day or night time use). Indicated that she needs assistance w/ ADLS and is independent w/ functional transfers at [facility] ( from manual w/c equipped w/ cushion and R w/c brake extension). She indicated that she does not use mobility AE. Supervision w/ functional transfers w/c <-> EOM. Full passive ROM of all digits of the R hand. L UE AROM WFL. -30 degrees active R elbow ext; 135 degrees active R elbow flexion; 75 degrees active R forearm supination; Full R active R forearm pronation; 75 degrees active R sh flex versus 105 degrees passive R sh flex; 65 degrees active R sh abduction versus 90 degrees passive R sh abduction; 35 degrees active R sh ext versus 50 degrees passive R sh ext; Full R IR; 0 degrees active R ER; 75 degrees active R wrist ext; 0 degrees active R wrist flexion versus 60 degrees passive R wrist flexion. 7.0# of force w/ R sanforizer and 73.0# of force w/ L sanforizer w/ dynamometer II testing. Good orientation to midline w/ L and R trunk leans/weight shift . Barbara would likely benefit from skilled outpatient OT to address R UE range of motion, motor planning, proprioceptive /kinesthetic awareness, active incorporation of the R UE, tone management, and to establish HEP. Further information needs to be gathered from place of residence to establish functional baseline. In addition, further observations of functional abilities is needed to establish baseline and establish appropriate goals (including functional movement patterns). Plan Length of treatment (weeks) 12 Plan of Care Start Date 10/11/22 Plan of Care End Date 01/03/23 Treatment Frequency Once a Week Therapeutic Contents Active Range of Motion, Adaptive Equipment Education, Client Education,Cognitive Skills Development,Functional Activities,Home Exercise Program,Joint Protection, Manual Therapy,Education, Neurodevelopment Treatment, Neuromuscular Re-Education, Self-Care,Stretching/ Flexibility Activities, Therapeutic Activities, Therapeutic Exercises Functional Wrist/Hand Scan Hand Side Sensory Assessment Sensory Profile2 OT Outpatient Treatment Note - Adult Start: 10/16/22 15:39 Freq: Status: Active Protocol: Document 01/10/23 14:02 [facility] (Rec: 01/10/23 14:13 [facility] [id number]) OT Outpatient Adult Treatment Note Session Time Visit Start Time 12:15 Visit Stop Time 13:10 Total Visit Minutes 55 Visit Information Visit Number 11/30 visits --> KX 20th visit Plan of Care Dates 01/03/23 - 03/28/23 Insurance Information Medicare Setting Treatment Setting Outpatient Care Visit Type Note Type Progress Note General Information General Information Barbara is a 67 year-old woman referred to outpatient OT secondary to residual right sided hemiplegia. Medical history is significant for DM II, HTN, HLD, L hip replacement, and severe aphasia. She has been referred to outpatient PAINTING INSTRUCTOR here at [facility] as well. She resides at [facility]; she is dependent with community mobility and utilizes a standard manual w/c . - Subjective Identification Type Name Observations Requested e-stim. Name Preference: Pawel. - Objective Objective Measurements Please refer to below for progress towards meeting established OT goals: Short Term Goals GOALS MET Barbara will demonstrate 9.0# of force with dynamometer II R sanforizer strength test. *MET 01/10 16.0# R sanforizer Retirement Goals 1. Barbara will be modified independent with execution of home exercise program utilizing provided written/ visual instructions from therapist w/ support of caregivers. 2. Barbara will be able to indicate active incorporation of the R hand with completion of 1 to 2 functional tasks on a daily basis. - Treatment 1 Descriptor Greek e-stim. Facilitation of wrist/digit extension. 10/ 10 cycle. Intensity 46. Skin intact pre- and post- treatment. No c/o of treatment modality. Initial blocking by therapist to encourage MPJ extension vs isolated wrist extension. Exercises 6 Descriptor Red flex bar. Assist to obtain R handed grasp. Bending w/ L hand into 'n'. 2 x 10. Assist to obtain R handed grasp/modified exercise w/ forearm in supination. Bending w/ L hand into 'u'. 2 x 10. Assist to obtain R handed grasp. Twisting of red flex bar w/ L hand. 2 x 10. 5 Descriptor Seated UE AROM. Scapular retraction. 2 x 10. TB#2 w/ utilization of handle. Backwards sh shrugs. 2 x 10. Scapular retraction combined w / elbow ext and sh ext. 2 x 10 . 4 Descriptor Supine ROM. L hip -> R body of space to R of body; PNF diagonal. 2 x 10. Min phys assist to facilitate . ER supine/elbow at side. 2 x 10. Blocking provided by therapist to facilitate. L Sh circles w/ elbow in ext. CW 2 x 10. CCW 2 x 10. Min phys assist to facilitate. L Sh abd. 2 x 10. CGA to min phys assist to facilitate. L punches to ceiling. 2 x 10. SBA to min phys assist to facilitate. 3 Descriptor R UE weight bearing. Tone management. L <-> R weight shifting while in sitting. 2 x 10. 2 Descriptor Cane. ROM. Strengthening. B sh flexion. 2 x 10. 3# ankle weight. B chest press. 2 x 10. 3# ankle weight. 1 Descriptor Supine R UE strengthening exercises. Sh ext. 2 x 10. TB#3. Use of handle. Elbow ext. 2 x 10. TB #3. Use of handle. - Assessment Assessment of Improvement Pawel has made progress with outpatient OT relative to R sanforizer strength; clinician has also been able to upgrade UE therapeutic exercises w/ (L UE assist) and without use of cane. Despite progress, Pawel is observed to rely on L UE w/ continued limited functional incorporation and/or use of the L UE given increased spasticity/tone into typical moni pattern w/ decreased active/volitional motor control of the distal UE (hand /wrist). With guamanian e-stim program, Pawel blocking was needed to encourage ext at MCPJ (2-5) vs isolated wrist ext w/ continued posturing of PIP and DIP joints into flex. Barbara would likely benefit from skilled outpatient OT to address R UE range of motion, motor planning, proprioceptive /kinesthetic awareness, active incorporation of the R UE, tone management, and to establish HEP. - Plan Therapy Recommendations Continue with Current Program, Advance per Rehabilitation Protocol Comment 12 weeks Frequency of Treatment Once a Week Therapeutic Contents Active Range of Motion, Adaptive Equipment Education, Client Education,Functional Activities,Home Exercise Program,Joint Protection, Manual Therapy,Education, Neurodevelopment Treatment, Neuromuscular Re-Education, Self-Care,Stretching/ Flexibility Activities, Therapeutic Activities, Therapeutic Exercises, Modalities Modalities As Needed,As Prescribed Additional Types of Modalities Heat/Ice/Contrast Baths/ Paraffin/E-stim/Ultrasound Electronically Signed by: Jacqueline Finley OT 01/10/23 0621 If you are in agreement with this Plan of Care, please return a signed and dated copy. I have reviewed this Plan of Care and certify that the skilled therapy services above are required to meet the patient?s needs. Physician Signature Date Printed Name and Credentials Clinical Instructor Signature Printed Name and Credentials
--- NOTE | 2023-01-15 16:00 | OT.OP.TRT ---
Visit Care Team Role Provider Type Merle Antonio MD Attending Provider Non-Staff Family Provider Primary Care Provider Referring Provider Specialty: Family Practice Address: [address] [place] [address] [place], [address] Email: Occupational Therapy Treatment Note OT Outpatient Treatment Note - Adult Start: 10/16/22 15:39 Freq: Status: Active Protocol: Document 01/15/23 16:00 AMS (Rec: 01/16/23 10:58 AMS [id number]) OT Outpatient Adult Treatment Note Session Time Visit Start Time 15:00 Visit Stop Time 15:53 Total Visit Minutes 53 Visit Information Visit Number 12/31 visits --> KX 20th visit Plan of Care Dates 01/03/23 - 03/28/23 Insurance Information Medicare Setting Treatment Setting Outpatient Care Visit Type Note Type Treatment Note General Information General Information Barbara is a 67 year-old woman referred to outpatient OT secondary to residual right sided hemiplegia. Medical history is significant for DM II, HTN, HLD, L hip replacement, and severe aphasia. She has been referred to outpatient MANAGING CONSULTANT here at [facility] as well. She resides at [facility]; she is dependent with community mobility and utilizes a standard manual w/c . - Subjective Identification Type Name Observations No new concerns were indicated by Pawel. Name Preference: Pawel. - Objective Objective Measurements Please refer to below for progress towards meeting established OT goals: Short Term Goals 1. Barbara will demonstrate 20.0# of force with dynamometer II R ripening room operator strength test. 01/16/23 = GOAL UPGRADED GOALS MET Barbara will demonstrate 9.0# of force with dynamometer II R ripening room operator strength test. *MET 01/10 16.0# R ripening room operator Solar System Installer Goals 1. Barbara will be modified independent with execution of home exercise program utilizing provided written/ visual instructions from therapist w/ support of caregivers. 2. Barbara will be able to indicate active incorporation of the R hand with completion of 1 to 2 functional tasks on a daily basis. - Treatment 1 Descriptor Uzbek e-stim. Facilitation of wrist/digit extension. 10 cycle. Intensity 48. Skin intact pre- and post- treatment. No c/o of treatment modality. Blocking by therapist to encourage PIPJ extension vs isolated wrist ext/MPJ ext of 2-5 digits. Exercises 5 Descriptor Seated UE AROM. Scapular retraction. 2 x 10. TB#2 w/ utilization of handle. Backwards sh shrugs. 2 x 10. Scapular retraction combined w / elbow ext and sh ext. 2 x 10 . 4 Descriptor Supine ROM. L hip -> R body of space to R of body; PNF diagonal. 2 x 10. CGA to min phys assist to facilitate. ER supine/elbow at side. 2 x 10. Passively executed by therapist. L Sh circles w/ elbow in ext. CW 2 x 10. CCW 2 x 10. Min phys assist to facilitate. L Sh abd. 2 x 10. CGA to min phys assist to facilitate. L punches to ceiling. 2 x 10. SBA to min phys assist to facilitate. 3 Descriptor R UE weight bearing. Tone management. L <-> R weight shifting while in sitting. 2 x 10. 2 Descriptor Cane. ROM. Strengthening. B sh flexion. 2 x 10. 3# ankle weight. B chest press. 2 x 10. 3# ankle weight. 1 Descriptor Supine R UE strengthening exercises. Sh ext. 2 x 10. TB#3. Use of handle. Elbow ext. 2 x 10. TB #3. Use of handle. - Assessment Assessment of Improvement With peruvian e-stim program, blocking provided to encourage ext at PIPJ vs isolated wrist /MPJ ext. Increased reliance on L UE w/ continued limited functional incorporation and/ or use of the L UE given increased spasticity/tone into typical moni pattern w/ decreased active/volitional motor control of the distal UE (hand/wrist). (-) tolerance of bilateral ER while in supine; use of bolster to support stretching of anterior R sh while in sitting w/ sh in abd. Recommend trialing ER w/ hor sh abd w/ use of cane and/or range of motion executed by clinician. Overall , good session. Danella would likely benefit from skilled outpatient OT to address R UE range of motion, motor planning, proprioceptive /kinesthetic awareness, active incorporation of the R UE, tone management, and to establish HEP. - Plan Therapy Recommendations Continue with Current Program, Advance per Rehabilitation Protocol
--- NOTE | 2023-02-07 15:02 | OT.OP.TRT ---
Visit Care Team Role Provider Type Merle Antonio MD Attending Provider Non-Staff Family Provider Primary Care Provider Referring Provider Specialty: Family Practice Address: [address] [place] [address] [place], [id number] Email: Occupational Therapy Treatment Note OT Outpatient Treatment Note - Adult Start: 10/16/22 15:39 Freq: Status: Active Protocol: Document 02/07/23 14:54 AMS (Rec: 02/07/23 15:02 AMS [id number]) OT Outpatient Adult Treatment Note Session Time Visit Start Time 13:20 Visit Stop Time 14:15 Total Visit Minutes 55 Visit Information Visit Number 01/30 visits --> KX 20th visit Plan of Care Dates 01/03/23 - 03/28/23 Insurance Information Medicare Setting Treatment Setting Outpatient Care Visit Type Note Type Treatment Note General Information General Information Barbara is a 67 year-old woman referred to outpatient OT secondary to residual right sided hemiplegia. Medical history is significant for DM II, HTN, HLD, L hip replacement, and severe aphasia. She has been referred to outpatient ANESTHESIOLOGY TECHNOLOGIST here at [facility] as well. She resides at [facility]; she is dependent with community mobility and utilizes a standard manual w/c . - Subjective Identification Type Name Observations No new concerns were indicated by Pawel. Name Preference: Pawel. - Objective Objective Measurements Please refer to below for progress towards meeting established OT goals: Short Term Goals 1. Barbara will demonstrate 20.0# of force with dynamometer II R family service assistant strength test. 01/16/23 = GOAL UPGRADED GOALS MET Barbara will demonstrate 9.0# of force with dynamometer II R family service assistant strength test. *MET 01/10 16.0# R family service assistant Mcfp Goals 1. Barbara will be modified independent with execution of home exercise program utilizing provided written/ visual instructions from therapist w/ support of caregivers. 2. Barbara will be able to indicate active incorporation of the R hand with completion of 1 to 2 functional tasks on a daily basis. - Treatment 1 Descriptor Equ[place] Guinean e-stim. Facilitation of wrist/digit extension. 10 cycle. Intensity 48. Skin intact pre- and post- treatment. No c/o of treatment modality. Blocking by therapist to encourage PIPJ extension vs isolated wrist ext/MPJ ext of 2-5 digits. Exercises 4 Descriptor Supine ROM. L hip -> R body of space to R of body; PNF diagonal. 2 x 10. CGA to min phys assist to facilitate. R sh circles w/ elbow in ext. CW 2 x 10. CCW 2 x 10. Min phys assist to facilitate. R sh abd. 2 x 10. CGA to min phys assist to facilitate. R sh hor abd. 2 x 10. Min phys assist to facilitate elbow ext and full sh hor abd outside base of support. R punches to ceiling. 1 x 10. SBA to min phys assist to facilitate. ER supine/elbow at side. 2 x 10. Passively executed by therapist. Hor abd w/ ER. 2 x 10. Passively executed by therapist. 3 Descriptor R UE weight bearing. Tone management. L <-> R weight shifting while in sitting. 2 x 10. 2 Descriptor Cane. ROM. Strengthening. B sh flexion. 2 x 10. 3# ankle weight. B chest press. 2 x 10. 3# ankle weight. 1 Descriptor Supine R UE strengthening exercises. Sh ext. 2 x 10. TB#3. Use of handle. Elbow ext. 2 x 10. TB #3. Use of handle. Sh punches to ceiling. 1 x 10. 1# DB. CGA to min phys assist to facilitate. - Assessment Assessment of Improvement With kittitian e-stim program, blocking provided to encourage ext at PIPJ vs isolated wrist /MPJ ext. Advanced supine R UE exercises; cont to work on ROM outside of typical moni UE pattern. Overall, good session. Increased reliance on L UE w/ continued limited functional incorporation and/or use of the L UE given increased spasticity/tone into typical moni pattern w/ decreased active/volitional motor control of the distal UE (hand /wrist). Pawel would likely benefit from skilled outpatient OT to address R UE range of motion, motor planning, proprioceptive/ kinesthetic awareness, active incorporation of the R UE, tone management, and to establish HEP. - Plan Therapy Recommendations Continue with Current Program, Advance per Rehabilitation Protocol
--- NOTE | 2023-02-13 14:27 | OT.OP.TRT ---
Visit Care Team Role Provider Type Merle Antonio MD Attending Provider Non-Staff Family Provider Primary Care Provider Referring Provider Specialty: Family Practice Address: [address] [place] [address] [place], [id number] Email: Occupational Therapy Treatment Note OT Outpatient Treatment Note - Adult Start: 10/16/22 15:39 Freq: Status: Active Protocol: Document 02/13/23 14:21 AMS (Rec: 02/13/23 14:27 AMS [id number]) OT Outpatient Adult Treatment Note Session Time Visit Start Time 10:45 Visit Stop Time 11:40 Total Visit Minutes 55 Visit Information Visit Number 03/02 visits --> KX 20th visit Plan of Care Dates 01/03/23 - 03/28/23 Insurance Information Medicare Setting Treatment Setting Outpatient Care Visit Type Note Type Treatment Note General Information General Information Barbara is a 67 year-old woman referred to outpatient OT secondary to residual right sided hemiplegia. Medical history is significant for DM II, HTN, HLD, L hip replacement, and severe aphasia. She has been referred to outpatient SPACE SYSTEMS OPERATIONS SUPERINTENDENT here at [facility] as well. She resides at [facility]; she is dependent with community mobility and utilizes a standard manual w/c . - Subjective Identification Type Name Observations No new concerns were indicated by Pawel. Name Preference: Pawel. - Objective Objective Measurements Please refer to below for progress towards meeting established OT goals: Short Term Goals 1. Barbara will demonstrate 20.0# of force with dynamometer II R structures mechanic strength test. 01/16/23 = GOAL UPGRADED GOALS MET Barbara will demonstrate 9.0# of force with dynamometer II R structures mechanic strength test. *MET 01/10 16.0# R structures mechanic Shelter Goals 1. Barbara will be modified independent with execution of home exercise program utilizing provided written/ visual instructions from therapist w/ support of caregivers. 2. Barbara will be able to indicate active incorporation of the R hand with completion of 1 to 2 functional tasks on a daily basis. - Treatment 1 Descriptor Eritrean e-stim. Facilitation of wrist/digit extension. 10 cycle. Intensity 48. Skin intact pre- and post- treatment. No c/o. Blocking by therapist to encourage PIPJ extension vs isolated wrist ext/MPJ ext of 2-5 digits. Use of single rubberband for resistive ext w/ distal to PIPJs x 3 minutes. Exercises 4 Descriptor Supine ROM. L hip -> R body of space to R of body; PNF diagonal. 2 x 10. CGA to min phys assist to facilitate. R sh circles w/ elbow in ext. CW 2 x 10. CCW 2 x 10. Min phys assist to facilitate. R sh abd. 2 x 10. CGA to min phys assist to facilitate. R sh hor abd. 2 x 10. Min to mod phys assist to facilitate elbow ext and full sh hor abd outside base of support. R punches to ceiling. 1 x 10. Min phys assist to facilitate. ER supine/elbow at side. 2 x 10. Passively executed by therapist. Hor abd w/ ER. 2 x 10. Passively executed by therapist. 3 Descriptor R UE weight bearing. Tone management. L <-> R weight shifting while in sitting. 2 x 10. 2 Descriptor Cane. ROM. Strengthening. B sh flexion. 2 x 10. 3# ankle weight. B chest press. 2 x 10. 3# ankle weight. 1 Descriptor Supine R UE strengthening exercises. Sh punches to ceiling. 2 x 10. Min to mod phys assist to facilitate. N/A 02/13/23 Sh ext. 2 x 10. TB#3. Use of handle. Elbow ext. 2 x 10. TB #3. Use of handle. - Assessment Assessment of Improvement Pawel presented with increased fatigue w/ need for increased phys assist from clinician to support execution of supine UE exercises. Removal of resistance was needed for some exercises w/ focus on active range of motion/executing against gravity. With gabonese e-stim program, blocking provided to encourage ext at PIPJ vs isolated wrist/MPJ ext w/ use of single rubberband positioned distally to PIPJs x 3 minutes. Overall, fair session. Increased reliance on L UE w/ continued limited functional incorporation and/or use of the L UE given increased spasticity/tone into typical moni pattern w/ decreased active/volitional motor control of the distal UE (hand /wrist). Pawel would likely benefit from skilled outpatient OT to address R UE range of motion, motor planning, proprioceptive/ kinesthetic awareness, active incorporation of the R UE, tone management, and to establish HEP. - Plan Therapy Recommendations Continue with Current Program, Advance per Rehabilitation Protocol
--- NOTE | 2023-02-19 14:59 | OT.OP.TRT ---
Visit Care Team Role Provider Type Merle Antonio MD Attending Provider Non-Staff Family Provider Primary Care Provider Referring Provider Specialty: Family Practice Address: [address] [place] [address] [place], [address] Email: Occupational Therapy Treatment Note OT Outpatient Treatment Note - Adult Start: 10/16/22 15:39 Freq: Status: Active Protocol: Document 02/19/23 14:51 AMS (Rec: 02/19/23 14:59 AMS [id number]) OT Outpatient Adult Treatment Note Session Time Visit Start Time 13:15 Visit Stop Time 14:10 Total Visit Minutes 55 Visit Information Visit Number 04/01 visits --> KX 20th visit Plan of Care Dates 01/03/23 - 03/28/23 Insurance Information Medicare Setting Treatment Setting Outpatient Care Visit Type Note Type Treatment Note General Information General Information Barbara is a 67 year-old woman referred to outpatient OT secondary to residual right sided hemiplegia. Medical history is significant for DM II, HTN, HLD, L hip replacement, and severe aphasia. She has been referred to outpatient MEDIA CENTER SPECIALIST here at [facility] as well. She resides at [facility]; she is dependent with community mobility and utilizes a standard manual w/c . - Subjective Identification Type Name Observations No new concerns were indicated by Pawel. Name Preference: Pawel. - Objective Objective Measurements Please refer to below for progress towards meeting established OT goals: Short Term Goals 1. Barbara will demonstrate 20.0# of force with dynamometer II R business continuity coordinator strength test. 01/16/23 = GOAL UPGRADED GOALS MET Barbara will demonstrate 9.0# of force with dynamometer II R business continuity coordinator strength test. *MET 01/10 16.0# R business continuity coordinator Detention Goals 1. Barbara will be modified independent with execution of home exercise program utilizing provided written/ visual instructions from therapist w/ support of caregivers. 2. Barbara will be able to indicate active incorporation of the R hand with completion of 1 to 2 functional tasks on a daily basis. - Treatment 1 Descriptor Faroese e-stim. Facilitation of wrist/digit extension. 10 cycle. Intensity 50. Skin intact pre- and post- treatment. No c/o. Blocking by therapist to encourage PIPJ extension vs isolated wrist ext/MPJ ext of 2-5 digits. Use of single rubberband for resistive ext w/ distal to PIPJs x 3 minutes. Exercises 5 Descriptor Supine Passive ROM. ER supine/elbow at side. 2 x 10. Passively executed by therapist. Hor abd w/ ER. 2 x 10. Passively executed by therapist. 4 Descriptor Supine R UE ROM. R sh flex. 2 x 10. R punches to ceiling. 2 x 10. R sh abd. 2 x 10. CGA to min phys assist to facilitate. R sh flex -> sh hor abd -> add . 1 x 10. CGA to mod phys assist. Instead of = R sh circles w/ elbow in ext. CW 2 x 10. CCW 2 x 10. Min phys assist to facilitate. R sh hor abd. 2 x 10. Min to mod phys assist to facilitate elbow ext and full sh hor abd outside base of support. R hand -> L sh -> R pocket. Diagonal. 1 x 10. R elbow flex -> ext. 2 x 10. 3 Descriptor R UE weight bearing. Tone management. L <-> R weight shifting while in sitting. 2 x 10. 2 Descriptor Cane. ROM. Strengthening. B sh flexion. 2 x 10. 3# ankle weight. B chest press. 2 x 10. 3# ankle weight. 1 Descriptor Supine R UE strengthening exercises. Sh punches to ceiling. 2 x 10. Min to mod phys assist to facilitate. N/A 02/13/23 Sh ext. 2 x 10. TB#3. Use of handle. Elbow ext. 2 x 10. TB #3. Use of handle. - Assessment Assessment of Improvement Given performance at previous treatment session, increased focus on R UE active range of motion and motor planning exercises in supine without left upper extremity support. Overall, increased success compared to previous session relative to decreased phys assist provided by therapist and increased number of exercises completed within the treatment session. Increased reliance on L UE w/ continued limited functional incorporation and/or use of the L UE given increased spasticity/tone into typical moni pattern w/ decreased active/volitional motor control of the distal UE (hand /wrist). Pawel would likely benefit from skilled outpatient OT to address R UE range of motion, motor planning, proprioceptive/ kinesthetic awareness, active incorporation of the R UE, tone management, and to establish HEP. - Plan Therapy Recommendations Continue with Current Program, Advance per Rehabilitation Protocol
--- NOTE | 2023-02-27 14:21 | OT.OP.TRT ---
Visit Care Team Role Provider Type Merle Antonio MD Attending Provider Non-Staff Family Provider Primary Care Provider Referring Provider Specialty: Family Practice Address: [address] [place] [address] [place], [place], [address] Email: Occupational Therapy Treatment Note OT Outpatient Treatment Note - Adult Start: 10/16/22 15:39 Freq: Status: Active Protocol: Document 02/27/23 14:17 AMS (Rec: 02/27/23 14:21 AMS [id number]) OT Outpatient Adult Treatment Note Session Time Visit Start Time 10:30 Visit Stop Time 11:25 Total Visit Minutes 55 Visit Information Visit Number visits --> KX 20th visit Plan of Care Dates 01/03/23 - 03/28/23 Insurance Information Medicare Setting Treatment Setting Outpatient Care Visit Type Note Type Treatment Note General Information General Information Barbara is a 67 year-old woman referred to outpatient OT secondary to residual right sided hemiplegia. Medical history is significant for DM II, HTN, HLD, L hip replacement, and severe aphasia. She has been referred to outpatient TRAVEL COUNSELOR AUTOMOBILE CLUB here at [facility] as well. She resides at [facility]; she is dependent with community mobility and utilizes a standard manual w/c . - Subjective Identification Type Name Observations No new concerns were indicated by Pawel. Name Preference: Pawel. - Objective Objective Measurements Please refer to below for progress towards meeting established OT goals: 02/27/23=Able to passively form hook fist with R hand without c/o pain/discomfort. Short Term Goals 1. Barbara will demonstrate 20.0# of force with dynamometer II R wool shearer strength test. 01/16/23 = GOAL UPGRADED GOALS MET Barbara will demonstrate 9.0# of force with dynamometer II R wool shearer strength test. *MET 01/10 16.0# R wool shearer [facility] Goals 1. Barbara will be modified independent with execution of home exercise program utilizing provided written/ visual instructions from therapist w/ support of caregivers. 2. Barbara will be able to indicate active incorporation of the R hand with completion of 1 to 2 functional tasks on a daily basis. - Treatment 1 Descriptor Sri Lankan e-stim. Facilitation of wrist/digit extension. 10/ cycle. Intensity 50. Skin intact pre- and post- treatment. No c/o. Blocking by therapist to encourage PIPJ extension vs isolated wrist ext/MPJ ext of 2-5 digits. Exercises 5 Descriptor Supine Passive ROM. ER supine/elbow at side. 2 x 10. Passively executed by therapist. Hor abd w/ ER. 2 x 10. Passively executed by therapist. 4 Descriptor Supine R UE ROM. R sh flex. 2 x 10. R punches to ceiling. 2 x 10. R sh abd. 2 x 10. CGA to min phys assist to facilitate. R sh flex -> sh hor abd -> add . 1 x 10. CGA to mod phys assist. R sh hor abd. 2 x 10. Min to mod phys assist to facilitate elbow ext and full sh hor abd outside base of support. R hand -> L sh -> R pocket. Diagonal. 1 x 10. R elbow flex -> ext. 2 x 10. 3 Descriptor R UE weight bearing. Tone management. L <-> R weight shifting while in sitting. 2 x 10. - Assessment Assessment of Improvement Continued focus on R UE active range of motion and motor planning exercises in supine without left upper extremity support. Able to passively form a hook fist with the right hand; Pawel denied pain w / hand/fingers being formed in hook fist. Overall, good session. Increased reliance on L UE w/ continued limited functional incorporation and/or use of the L UE given increased spasticity/tone into typical moni pattern w/ decreased active/volitional motor control of the distal UE (hand /wrist). Pawel would likely benefit from skilled outpatient OT to address R UE range of motion, motor planning, proprioceptive/ kinesthetic awareness, active incorporation of the R UE, tone management, and to establish HEP. - Plan Therapy Recommendations Continue with Current Program, Advance per Rehabilitation Protocol
--- NOTE | 2023-04-01 12:01 | OT.OP.DC ---
Visit Care Team Role Provider Type Merle Antonio MD Attending Provider Non-Staff Family Provider Primary Care Provider Referring Provider Address: [address] [place] [address] [place], [address] Email: OT Outpatient OT Outpatient Adult Evaluation Start: 10/16/22 15:39 Freq: Status: Active Protocol: Document 10/11/22 16:00 AMS (Rec: 10/16/22 16:05 AMS [id number]) General Information - Adult Visit Information Visit Number Eval Plan of Care Dates 10/11/22 - 01/03/23 Insurance Information Medicaid; EVAL CHARGE ONLY -> 24 OT units/8 visits at 3 units per visit PCY Session Time Visit Start Time 10:00 Visit Stop Time 10:45 Total Visit Minutes 45 Setting Treatment Setting Outpatient Care Visit Type Note Type Initial Evaluation Identification Identification Confirmed Yes Identification Confirmed By Self Goals Short Term Goals Short Term Goals 1. Barbara will demonstrate 9 .0# of force with dynamometer II R pet groomer strength test. Assisted Goals Assisted Goals 1. Barbara will be modified independent with execution of home exercise program utilizing provided written/ visual instructions from therapist w/ support of caregivers. 2. Barbara will be able to indicate active incorporation of the R hand with completion of 1 to 2 functional tasks on a daily basis. Assessment/Plan Assessment Treatment Assessment Barbara is a 67 year-old woman referred to outpatient OT secondary to residual right sided hemiplegia. Medical history is significant for DM II, HTN, HLD, L hip replacement, and severe aphasia. She has been referred to outpatient CROSSCUTTER here at [facility] as well. She resides at [facility]; she is dependent with community mobility and utilizes a standard manual w/c . Nonverbally communicated 4 out of 10 on Body Pain Assessment Grid versus 9 out of 10 on Hand/Wrist Pain Assessment Grid relative to distal R hand. QuickDASH UE Outcome Measure Score = 88.64. Denial of use of R UE sling and/or splint (day or night time use). Indicated that she needs assistance w/ ADLS and is independent w/ functional transfers at [facility]isted [facility] ( from manual w/c equipped w/ cushion and R w/c brake extension). She indicated that she does not use mobility AE. Supervision w/ functional transfers w/c <-> EOM. Full passive ROM of all digits of the R hand. L UE AROM WFL. -30 degrees active R elbow ext; 135 degrees active R elbow flexion; 75 degrees active R forearm supination; Full R active R forearm pronation; 75 degrees active R sh flex versus 105 degrees passive R sh flex; 65 degrees active R sh abduction versus 90 degrees passive R sh abduction; 35 degrees active R sh ext versus 50 degrees passive R sh ext; Full R IR; 0 degrees active R ER; 75 degrees active R wrist ext; 0 degrees active R wrist flexion versus 60 degrees passive R wrist flexion. 7.0# of force w/ R pet groomer and 73.0# of force w/ L pet groomer w/ dynamometer II testing. Good orientation to midline w/ L and R trunk leans/weight shift . Barbara would likely benefit from skilled outpatient OT to address R UE range of motion, motor planning, proprioceptive /kinesthetic awareness, active incorporation of the R UE, tone management, and to establish HEP. Further information needs to be gathered from place of residence to establish functional baseline. In addition, further observations of functional abilities is needed to establish baseline and establish appropriate goals (including functional movement patterns). Plan Length of treatment (weeks) 12 Plan of Care Start Date 10/11/22 Plan of Care End Date 01/03/23 Treatment Frequency Once a Week Therapeutic Contents Active Range of Motion, Adaptive Equipment Education, Client Education,Cognitive Skills Development,Functional Activities,Home Exercise Program,Joint Protection, Manual Therapy,Education, Neurodevelopment Treatment, Neuromuscular Re-Education, Self-Care,Stretching/ Flexibility Activities, Therapeutic Activities, Therapeutic Exercises Functional Wrist/Hand Scan Hand Side Sensory Assessment Sensory Profile2 OT Outpatient Treatment Note - Adult Start: 10/16/22 15:39 Freq: Status: Active Protocol: Document 04/01/23 11:59 [facility] (Rec: 04/01/23 12:01 [facility] [id number]) OT Outpatient Adult Treatment Note Visit Information Visit Number visits --> KX 20th visit Plan of Care Dates 01/03/23 - 03/28/23 Insurance Information Medicare Setting Treatment Setting Outpatient Care Visit Type Note Type Discharge Summary General Information General Information Barbara is a 67 year-old woman referred to outpatient OT secondary to residual right sided hemiplegia. Medical history is significant for DM II, HTN, HLD, L hip replacement, and severe aphasia. She has been referred to outpatient CROSSCUTTER here at [facility] as well. She resides at [facility]; she is dependent with community mobility and utilizes a standard manual w/c . - Subjective Observations Pawel has not been seen in the outpatient setting by OT since 02/27/23 and OT POC on 03/28/23; thus, recommend d /c from outpatient OT at this time and re-evaluate as deemed appropriate by PCP w/ receipt of new referral. - Objective Objective Measurements Please refer to below for progress towards meeting established OT goals: 02/27/23=Able to passively form hook fist with R hand without c/o pain/discomfort. Short Term Goals D/C GOALS 04/01/23 1. Danella will demonstrate 20.0# of force with dynamometer II R pet groomer strength test. 01/16/23 = GOAL UPGRADED GOALS MET Danella will demonstrate 9.0# of force with dynamometer II R pet groomer strength test. *MET 01/10 16.0# R pet groomer Assisted Goals D/C GOALS 04/01/23 1. Danella will be modified independent with execution of home exercise program utilizing provided written/ visual instructions from therapist w/ support of caregivers. 2. Danella will be able to indicate active incorporation of the R hand with completion of 1 to 2 functional tasks on a daily basis. - - Assessment Assessment of Improvement Pawel has not been seen in the outpatient setting by OT since 02/27/23 and OT POC on 03/28/23; thus, recommend d /c from outpatient OT at this time and re-evaluate as deemed appropriate by PCP w/ receipt of new referral. - Plan Therapy Recommendations Discharge from Occupational Therapy
== END 2023-04-02 12:45 | disposition home or self-care (01) ==
LOC: OT 10:30
PROVIDERS: Family Provider Family Medicine; PCP Family Medicine; Referring Provider Family Medicine; Visit Provider Family Medicine
DX: I69.351 Hemiplegia and hemiparesis following cerebral infarction affecting right dominant side (principal)
CPT/HCPCS: 97032; 97110; 97166; 97530

== ENCOUNTER → 2023-03-25 07:49 | Outpatient (ROUT) | payer MEDICARE, MEDICAID, OTHER, SELFPAY ==
[2023-03-25 08:57] LABS: BUN Creatinine Ratio 29.9 (6-22); Blood Urea Nitrogen 26 mg/dL (7-17); Calcium 10.1 mg/dL (8.4-10.2); Carbon Dioxide 24 mmol/L (22-32); Chloride 106 mmol/L (98-107); Estimated Glomerular Filt Rate > 60 mL/min (>60); Glucose 118 mg/dL (80-110); HEMOLYSIS < 15 (0-50); Potassium 3.7 mmol/L (3.4-5.1); Sodium 139 mmol/L (137-145)
[2023-03-25 09:20] LABS: Thyroid Stimulating Hormone 0.776 uIU/mL (0.47-4.68)
== END ==
PROVIDERS: Family Provider Family Medicine; PCP Family Medicine; Visit Provider Family Medicine
DX: Z13.9 Encounter for screening, unspecified (principal)
CPT/HCPCS: 36415; 80048; 84443

== ENCOUNTER 2023-11-06 19:35 | Emergency (ER) | payer MEDICARE, MEDICAID, OTHER, SELFPAY ==
[2023-11-06] VITALS (12 sets, daily range): BP systolic 108–146; BP diastolic 67–81; PULSE 67–84; RESP 14–18; TEMP 37.1; O2SAT 92–96
--- NOTE | 2023-11-06 20:11 | PC.NURSE ---
Pt confirms that today she notice bilateral upper extremity weakness more so than her normal, and right leg weakness inceased. Pt confirms that it has been not but she has AC in her room. However, pt confirms that she is not keeping herself hydrated.
--- NOTE | 2023-11-06 20:17 | ED_ITS ---
HPI - General Adult General Chief complaint: Weakness Stated complaint: weakness/pain Time Seen by Provider: 11/06/23 20:02 Source: patient Mode of arrival: EMS Limitations: other (Nonverbal) History of Present Illness HPI narrative: Patient is a 68-year-old female. Has had a stroke. She is nonverbal. Has residual right-sided deficits. Somewhat of a difficult time obtaining exactly why she was here in the ER but from asking her yes or no questions it appears that she was having discomfort in her lower abdomen in her in her right hip. She stated that she was not having any chest pain or shortness of breath. She did say yes when I asked if she was having difficulty urinating/pain with urination. According to reports from nursing staff received reports from EMS she received the report from the living facility that the patient has potentially been more weak over some recent period of time. Related Data Home Medications Medication Instructions Recorded Confirmed amlodipine 10 mg tablet 10 mg PO QDAY ##0 06/30/16 atorvastatin 40 mg tablet 40 mg PO HS ##0 06/30/16 bupropion HCl 100 mg tablet,12 hr 100 mg PO BID ##0 06/30/16 sustained-release (Wellbutrin SR) cholecalciferol (vitamin D3) 25 1,000 iu PO QDAY ##0 06/30/16 mcg (1,000 unit) tablet (Vitamin D3) insulin aspar prot-insulin aspart 10 u SQ BIDCC ##0 06/30/16 100 unit/mL (70-30) subcutaneous pen (Novolog Mix 70-30FlexPen U-100) metoprolol tartrate 50 mg tablet 50 mg PO BID ##0 06/30/16 omeprazole 20 mg capsule,delayed 20 mg PO QDAY ##0 06/30/16 release prazosin 1 mg capsule (Minipress) 1 mg PO HS ##0 06/30/16 Previous Rx's Medication Instructions Recorded aspirin 325 mg tablet,delayed 325 mg PO QDAY ##30 07/02/16 release lisinopril 20 mg tablet 40 mg (2 x 20 mg) PO QDAY ##30 07/02/16 metformin 500 mg tablet 1,000 mg (2 x 500 mg) PO BIDCC ##60 07/02/16 (Glucophage) Allergies Allergy/AdvReac Type Severity Reaction Status Date / Time No Known Drug Allergies Allergy Verified 11/06/23 19:43 Review of Systems Review of Systems Narrative: See HPI Patient History Medical History Hyperlipidemia Hypertension CVA (cerebral vascular accident) Diabetes Expressive aphasia Surgical History Surgical history unknown Social History Smoking Status: Current every day smoker Smoking Status: Current every day smoker tobacco type: cigarettes alcohol intake frequency: holidays/special occasions only Substance Use Type: does not use Exam Initial Vital Signs Initial Vital Signs: Vital Signs Temperature 98.8 F 11/06/23 19:40 Pulse Rate 80 11/06/23 19:40 Respiratory Rate 14 11/06/23 19:40 Blood Pressure 135/81 11/06/23 19:40 Pulse Oximetry 96 11/06/23 19:40 Oxygen Delivery Method Room Air 11/06/23 19:40 HENMT Head: normal to inspection Resp Effort & Inspection: normal respiratory effort Cardio Rate: regular rate GI Inspection: non-distended Palpation: No guarding Other: No apparent discomfort with palpation of her abdomen. Extrem Other: No gross deformities. Patient is able to raise both of her legs up off in the bed. She has an obvious deficiency to her right upper extremity from the stroke. Course Orders Ordered: ED Orders 11/06/23 20:20 XR hip w pel if done RT 2V Stat 11/06/23 21:55 Urinalysis and Microscopic Stat Vital Signs Vital signs: Vital Signs - 8 hr 11/06/23 21:00 11/06/23 21:30 11/06/23 21:55 Pulse Rate 71 69 72 Respiratory Rate Blood Pressure Pulse Oximetry 92 92 95 Oxygen Delivery Method Room Air 11/06/23 21:55 11/06/23 22:02 11/06/23 22:03 Pulse Rate 84 Respiratory Rate 18 Blood Pressure 119/79 146/71 H Pulse Oximetry 94 Oxygen Delivery Method 11/06/23 22:03 11/06/23 22:30 11/06/23 22:31 Pulse Rate 73 72 75 Respiratory Rate Blood Pressure Pulse Oximetry 94 94 94 Oxygen Delivery Method 11/06/23 22:31 11/06/23 23:00 11/06/23 23:00 Pulse Rate 67 Respiratory Rate Blood Pressure 115/69 108/67 Pulse Oximetry 93 Oxygen Delivery Method 11/06/23 23:30 11/06/23 23:30 11/07/23 00:00 Pulse Rate 68 Respiratory Rate 18 Blood Pressure 119/70 128/83 Pulse Oximetry 93 Oxygen Delivery Method 11/07/23 00:00 11/07/23 00:30 11/07/23 00:30 Pulse Rate 75 69 Respiratory Rate 18 Blood Pressure 106/68 Pulse Oximetry 96 92 Oxygen Delivery Method 11/07/23 01:00 11/07/23 01:00 Pulse Rate 67 Respiratory Rate Blood Pressure 116/74 Pulse Oximetry 95 Oxygen Delivery Method Medical Decision Making Lab Data Lab results reviewed: Yes I reviewed the patient's lab results. Labs: Lab Results 11/06/23 Range/Units 21:55 Urine Color Yellow Urine Appearance Clear Urine pH 5.0 (4.5-8.0) Ur Specific Ledbetter 1.025 (1.000-1.035) Urine Protein Negative (Negative) Urine Glucose (UA) Negative (Negative) g/dL Urine Ketones Negative (NEGATIVE) Urine Occult Blood Negative (Negative) Urine Nitrate Negative (Negative) Urine Bilirubin Negative (NEGATIVE) Urine Urobilinogen 0.2 (0.2) E.U./dL Ur Leukocyte Esterase Negative (NEGATIVE) Urine RBC None seen (0-5/HPF) Urine WBC None seen (0-5/HPF) Ur Squamous Epith Cells 0-1 /hpf (0-5/HPF) Urine Bacteria None seen (None) Ur Culture Indicated? Cult not indicated Vol Urine Centrifuged 10ml (spun) Urine Dip Bedside Urine Glucose Negative Bedside Urine Bilirubin - Negative Bedside Urine Ketone - Negative Urine Specific Ledbetter 1.025 Bedside Urine Occult Blood - Negative Bedside Urine pH 6 Bedside Urine Protein +/- 15 Bedside Urine Urobilinogen - Negative Bedside Urine Nitrite - Negative Bedside Urine Leukocytes - Negative Esterase Point of care testing: Urine Dip Bedside Urine Glucose Negative Bedside Urine Bilirubin - Negative Bedside Urine Ketone - Negative Urine Specific Ledbetter 1.025 Bedside Urine Occult Blood - Negative Bedside Urine pH 6 Bedside Urine Protein +/- 15 Bedside Urine Urobilinogen - Negative Bedside Urine Nitrite - Negative Bedside Urine Leukocytes - Negative Esterase MDM Narrative Medical decision making narrative: X-ray of her right hip shows no acute pathology. Patient was unable to urinate at bedside. Bladder scan shows greater than 400 cc of urine. A Carrizales catheter was placed. Urinalysis does not show any signs of infection. She was afebrile. Plan will be to discharge patient home with Carrizales catheter in place with instructions for follow-up with Urology. Discharge Plan Departure Patient Disposition: Home Clinical Impression: Acute urinary retention Instructions: How to Care for Your Carrizales Catheter -- Female Activity Restrictions/Additional Instructions: Barbara will need a follow-up with Urology. Their office can be contacted at the number provided below to schedule this follow-up visit. She can return to the emergency department point for new symptoms Prescriptions: No Action atorvastatin 40 MG tablet 40 mg PO HS Qty: 0 bupropion HCl [Wellbutrin SR] 100 MG tablet extended release 12 hr 100 mg PO BID Qty: 0 amlodipine 10 MG tablet 10 mg PO QDAY Qty: 0 metoprolol tartrate 50 MG tablet 50 mg PO BID Qty: 0 prazosin [Minipress] 1 MG capsule 1 mg PO HS Qty: 0 omeprazole 20 MG capsule,delayed release(DR/EC) 20 mg PO QDAY Qty: 0 cholecalciferol (vitamin D3) [Vitamin D3] 1,000 UNIT tablet 1,000 iu PO QDAY Qty: 0 insulin asp prt-insulin aspart [Novolog Mix 70-30FlexPen U-100] 100 UNIT/1 ML insulin pen 10 u SQ BIDCC Qty: 0 lisinopril 20 MG tablet 40 mg PO QDAY Qty: 30 0RF aspirin 325 MG tablet,delayed release (DR/EC) 325 mg PO QDAY Qty: 30 0RF metformin [Glucophage] 500 MG tablet 1,000 mg PO BIDCC Qty: 60 0RF Referrals: Merle Antonio MD [Primary Care Provider] - Don Ho MD [Physician] - Stand Alone Forms: Patient Portal/API
--- NOTE | 2023-11-06 20:20 | DI.RAD.S_ITS ---
PROCEDURE: XR HIP W PEL IF DONE RT 2V INDICATIONS: R hip pain TECHNIQUE: AP pelvis with lateral view(s) of the bilateral hip(s). COMPARISON: [facility], , HIP 2V LEFT, 01/20/2013, 9:50. FINDINGS: Bones: No fractures or dislocations. Pelvic ring appears intact. No suspicious bony lesions. Status post left total hip arthroplasty without hardware complication. Mild degenerative changes of the right hip. Lower lumbar spondylosis. Soft tissues: The visualized bowel gas pattern is normal. No suspicious soft tissue calcifications. IMPRESSION: No acute bony abnormality. Status post left total hip arthroplasty without hardware complication. Lower lumbar spondylosis. Right hip degenerative changes. If there are persistent symptoms or clinical suspicion for pathology, then repeat radiographs or advanced imaging (CT or MRI) may be considered for further evaluation. Dictated by: Delgado Pastor M.D. on 11/06/2023 at 21:53 Approved by: Delgado Pastor M.D. on 11/06/2023 at 21:54
[2023-11-06 23:20] LABS: Appearance Urine UA CLEAR; Bilirubin Urine UA NEGATIVE (NEGATIVE); Color Urine UA YELLOW; Glucose Urine UA NEGATIVE (Negative); Ketones Urine UA NEGATIVE (NEGATIVE); Leukocyte Esterase Urine UA NEGATIVE (NEGATIVE); Nitrite Urine UA NEGATIVE (Negative); Occult Blood Urine UA NEGATIVE (Negative); Protein Urine UA NEGATIVE (Negative); Specific Gravity Urine UA 1.025 (1.000-1.035); Urobilinogen Urine UA 0.2 E.U./dL (0.2)
[2023-11-06 23:29] LABS: Bacteria Urine None Seen; Culture Indicated Urine Cult Not Indicated; RBC Urine None Seen (0-5/HPF); Squamous Epithelial Cell Urine 0-1 /HPF (0-5/HPF); Urine Volume 10mL (spun); WBC Urine None Seen (0-5/HPF)
[2023-11-07] VITALS: BP 128/83; PULSE 75; O2SAT 96
[2023-11-07 00:30] VITALS: BP 106/68; PULSE 69; RESP 18; O2SAT 92
[2023-11-07 01:00] VITALS: BP 116/74; PULSE 67; O2SAT 95
== END 2023-11-07 01:20 | disposition home or self-care (01) ==
PROVIDERS: Emergency Provider Emergency Medicine; Family Provider Family Medicine; PCP Family Medicine
DX: R33.8 Other retention of urine (principal); Z86.73 Personal history of transient ischemic attack (TIA), and cerebral infarction without residual deficits; Z79.899 Other long term (current) drug therapy
CPT/HCPCS: 51798; 73502; 81001; 81003; 99283

== ENCOUNTER → 2023-11-18 08:54 | Outpatient (CLI) | payer MEDICARE, MEDICAID, OTHER, SELFPAY ==
--- NOTE | 2023-11-18 08:58 | DI.RAD.S_ITS ---
PROCEDURE: XR KNEE LT 3V INDICATIONS: PAIN KNEE/SHOULDER HIP TECHNIQUE: 3 views of the knee were acquired. COMPARISON: None. FINDINGS: Bones: No acute fracture or dislocation. Joint spaces are well maintained. Small distal quadriceps enthesophyte. Soft tissues: No joint effusion. No suspicious soft tissue calcifications. IMPRESSION: No acute bony abnormality or significant effusion. Dictated by: So Boykin M.D. on 11/18/2023 at 13:07 Approved by: So Boykin M.D. on 11/18/2023 at 13:08
--- NOTE | 2023-11-18 08:58 | DI.RAD.S_ITS ---
PROCEDURE: XR KNEE RT 3V INDICATIONS: PAIN KNEE/SHOULDER HIP TECHNIQUE: 3 views of the knee were acquired. COMPARISON: None. FINDINGS: Bones: Mild degenerative changes of the lateral compartment. No acute fracture or dislocation. Soft tissues: No joint effusion. No suspicious soft tissue calcifications. IMPRESSION: No acute bony abnormality or significant effusion. Dictated by: So Boykin M.D. on 11/18/2023 at 13:08 Approved by: So Boykin M.D. on 11/18/2023 at 13:09
--- NOTE | 2023-11-18 08:58 | DI.RAD.S_ITS ---
PROCEDURE: XR HIP W PEL IF DONE RT 2V INDICATIONS: PAIN KNEE/SHOULDER HIP TECHNIQUE: AP pelvis and lateral view of the hip acquired. COMPARISON: [facility], , XR HIP W PEL IF DONE RT 2V, 11/06/2023, 20:26. FINDINGS: Bones: Mild degenerative changes of the right hip. No acute fracture or dislocation of the right hip. Left total hip arthroplasty, partially visualized. IMPRESSION: Degenerative changes as described above. Dictated by: So Boykin M.D. on 11/18/2023 at 13:05 Approved by: So Boykni M.D. on 11/18/2023 at 13:06
--- NOTE | 2023-11-18 08:58 | DI.RAD.S_ITS ---
PROCEDURE: XR SHOULDER RT MIN 2V INDICATIONS: PAIN KNEE/SHOULDER HIP TECHNIQUE: 3 views of the shoulder were acquired. COMPARISON: None. FINDINGS: Bones: The acromioclavicular joint is unremarkable. Mild degenerative changes of the glenohumeral joint. No acute fracture or dislocation. Soft tissues: No suspicious soft tissue calcifications. IMPRESSION: No acute bony abnormality. Dictated by: So Boykin M.D. on 11/18/2023 at 13:09 Approved by: So Boykin M.D. on 11/18/2023 at 13:10
== END ==
PROVIDERS: Family Provider Family Medicine; PCP Family Medicine; Referring Provider Family Medicine; Visit Provider Family Medicine
DX: M25.511 Pain in right shoulder (principal); M25.551 Pain in right hip; Z96.642 Presence of left artificial hip joint
CPT/HCPCS: 73030; 73502; 73562

== ENCOUNTER → 2023-11-25 09:48 | Outpatient (CLI) | payer MEDICARE, MEDICAID, OTHER, SELFPAY ==
--- NOTE | 2023-11-25 09:49 | DI.CT.S_ITS ---
PROCEDURE: CT HEAD/BRAIN WO CON INDICATIONS: LEFT ARM WEAKNESS TECHNIQUE: Noncontrast 4.5 mm thick angled axial sections acquired from the foramen magnum to the vertex, with coronal and sagittal reformats. For radiation dose reduction, the following was used: automated exposure control, adjustment of mA and/or kV according to patient size. COMPARISON: [facility], MR, STROKE PROTOCOL, 07/01/2016, 11:34. [facility], CT, CT ANGIO HEAD AND NECK, 01/18/2019, 22:42. [facility], CT, CT HEAD/BRAIN WO CON, 01/18/2019, 22:30. FINDINGS: Image quality: Diagnostic. CSF spaces: Basal cisterns are patent. No extra-axial fluid collections. The ventricles are symmetric in size and shape. Brain: No intracranial bleeds or masses. There is cerebral volume loss for age, with resultant ventricular and sulcal prominence. There are periventricular and deep white matter chronic small vessel ischemic changes. Bilateral MCA territory infarcts are seen, with the left-sided infarct new since the 2019 imaging. The right sided infarct appears stable. There is also a low lobe stable remote left occipital lobe infarct. There is intracranial internal carotid artery atherosclerosis. Skull and face: Calvarium and visualized facial bones appear intact, without suspicious lesions. Sinuses: Visualized sinuses and mastoids are clear. IMPRESSION: Bilateral remote infarctions are seen, without a valeria acute abnormality seen. If there is strong clinical suspicion for an acute stroke, please consider a brain MRI for further evaluation, as it is more sensitive (assuming that there is no contraindication to MRI). Dictated by: Rangel Gibbons M.D. on 11/25/2023 at 9:50 Approved by: Rangel Gibbons M.D. on 11/25/2023 at 9:52
== END ==
PROVIDERS: Family Provider Family Medicine; PCP Family Medicine; Referring Provider Family Medicine; Visit Provider Family Medicine
DX: I65.29 Occlusion and stenosis of unspecified carotid artery (principal); R29.898 Other symptoms and signs involving the musculoskeletal system
CPT/HCPCS: 70450

== ENCOUNTER → 2023-12-22 08:07 | Outpatient (CLI) | payer MEDICARE, MEDICAID, OTHER, SELFPAY ==
--- NOTE | 2023-12-22 | DI.ECHO.S_ITS ---
[facility] : : [address] : : [place] : : [id number] : : Phone: [phone] Echocardiogram Report + + :Name: RENETTA FERNANDEZ Study Date: 12/22/2023 : :[facility] ReadingLocation: Weight: 187 lb: : Gender: Female : :: 1955 Age: 68 yrs : :Reason For Study: LEFT ARM WEAKNESS : :Ordering Physician: SUSAN, : :LATOYA Performed By: Oleg Walker : :Referring: LATOYA DAVIS : + + Interpretation Summary Technically difficult study. Grossly normal left ventricle size with ejection fraction 65-70%. No obvious valvular abnormality. Procedure: A two-dimensional transthoracic echocardiogram with color flow and Doppler was performed. The study quality was technically difficult. The study quality was technically limited. There is no prior echocardiogram noted for this patient. The heart rate ranged between 71-89 bpm during the study. Left Ventricle: The left ventricle is grossly normal size. The ejection fraction is estimated to be 65-70%. There are no obvious focal wall motion abnormalities noted but poor endocardial definition reduces the sensitivity for the detection of such. Right Ventricle: The right ventricle grossly appears normal in size with probable normal systolic function. Atria: The left atrial size is normal. Right atrial size is normal. The interatrial septum is not well visualized. Mitral Valve: The mitral valve is grossly normal. There is no mitral valve stenosis. There is no mitral regurgitation noted. Aortic Valve: The aortic valve is not well visualized. There is no aortic valve stenosis. No aortic regurgitation is present. Tricuspid Valve: The tricuspid valve is not well visualized. The tricuspid valve is not well visualized, but is grossly normal. There is no tricuspid stenosis. No tricuspid regurgitation. Pulmonic Valve: The pulmonic valve is not well visualized. There is no pulmonic valvular stenosis. There is no pulmonic valvular regurgitation. Great Vessels: The aortic root is not well visualized. The ascending aorta could not be visualized. The IVC is of normal diameter and collapses greater than 50% with a sniff. This suggests a low right atrial pressure of 3 mm Hg. Pericardium/ Pleura There is no pericardial effusion. There is no pleural effusion. MMode/2D Measurements & Calculations LA A2 area: 13.8 cm2 RA long axis: 3.6 cm LA A4 area: 13.4 cm2 RA area: 8.4 cm2 LA length (vol): 4.7 cm RA vol: 16.6 ml LA vol: 33.7 ml IVC diam: 1.1 cm RVD1 (basal): 3.2 cm RVD2 (mid): 2.6 cm TAPSE: 1.7 cm Doppler Measurements & Calculations Ao V2 max: 121.1 cm/sec LVOT Max Manuelito: 92.2 cm/sec Ao V2 mean: 79.0 cm/sec LV V1 max P.4 mmHg Ao max P.9 mmHg LV V1 VTI: 18.0 cm Ao mean P.8 mmHg sev ratio: 0.79 Ao V2 VTI: 22.9 cm MV E max manuelito: 47.1 cm/sec PA V2 max: 77.3 cm/sec MV A max manuelito: 63.8 cm/sec PA V2 mean: 56.3 cm/sec MV E/A: 0.74 PA mean P.4 mmHg Med Peak E' Manuelito: 5.2 cm/sec PA pr(Accel): 29.3 mmHg E/E' med: 9.0 Lat Peak E' Manuelito: 5.9 cm/sec E/E' lat: 8.0 E/e' average: 8.5 MV dec time: 0.33 sec Electronically signed by: Renee Vann on Reading Physician:12/22/2023 12:05 PM
== END ==
LOC: ECHO 08:08
PROVIDERS: Family Provider Family Medicine; PCP Family Medicine; Referring Provider Family Medicine; Visit Provider Family Medicine
DX: R29.898 Other symptoms and signs involving the musculoskeletal system (principal)
CPT/HCPCS: 93306

== ENCOUNTER → 2024-01-06 10:27 | Outpatient (CLI) | payer MEDICARE, MEDICAID, OTHER, SELFPAY ==
[2024-01-06 19:59] LABS: Hemoglobin A1C% w Est Avg Glu 5.8 % (4.0-6.0)
== END ==
PROVIDERS: Family Provider Family Medicine; PCP Family Medicine; Referring Provider Family Medicine; Visit Provider Family Medicine
DX: E11.9 Type 2 diabetes mellitus without complications (principal)
CPT/HCPCS: 36415; 83036

== ENCOUNTER → 2024-01-09 13:30 | Outpatient (ROUT) | payer MEDICARE, MEDICAID, OTHER, SELFPAY ==
[2024-01-09 13:37] LABS: Appearance Urine UA CLOUDY; Bilirubin Urine UA NEGATIVE (NEGATIVE); Color Urine UA YELLOW; Glucose Urine UA NEGATIVE (Negative); Ketones Urine UA NEGATIVE (NEGATIVE); Leukocyte Esterase Urine UA 1+ (NEGATIVE); Nitrite Urine UA POSITIVE (Negative); Occult Blood Urine UA 3+ (Negative); Protein Urine UA 3+ (Negative); Specific Gravity Urine UA >=1.030 (1.000-1.035); Urobilinogen Urine UA 0.2 E.U./dL (0.2)
[2024-01-09 13:43] LABS: Urine Volume 10mL (spun); pH Urine UA 5.5 (4.5-8.0)
[2024-01-09 13:44] LABS: RBC Urine >100/HPF (0-5/HPF); WBC Urine 30-100/HPF (0-5/HPF)
[2024-01-09 13:45] LABS: Bacteria Urine Many (>30); Culture Indicated Urine Specimen Cultured; Squamous Epithelial Cell Urine 1-5 /HPF (0-5/HPF)
== END ==
PROVIDERS: Family Provider Family Medicine; PCP Family Medicine; Visit Provider Family Medicine
DX: R82.90 Unspecified abnormal findings in urine (principal)
CPT/HCPCS: 81001; 87077; 87086; 87186

== ENCOUNTER → 2024-01-23 11:23 | Outpatient (CLI) | payer MEDICARE, MEDICAID, OTHER, SELFPAY | PROVIDERS: Family Provider Family Medicine; PCP Family Medicine; Visit Provider Urology | DX: I63.9 Cerebral infarction, unspecified (principal); G81.91 Hemiplegia, unspecified affecting right dominant side; R47.01 Aphasia; R39.9 Unspecified symptoms and signs involving the genitourinary system; R33.9 Retention of urine, unspecified; Z72.0 Tobacco use | CPT/HCPCS: 81002; 87077; 87086; 87186; 99214 ==

== ENCOUNTER → 2024-02-25 11:39 | Outpatient (CLI) | payer MEDICARE, MEDICAID, OTHER, SELFPAY | PROVIDERS: Family Provider Family Medicine; PCP Family Medicine; Visit Provider Urology | DX: R39.9 Unspecified symptoms and signs involving the genitourinary system (principal); Z96.0 Presence of urogenital implants | CPT/HCPCS: 87077; 87086; 87186 ==

== ENCOUNTER → 2024-03-24 12:05 | Outpatient (ROUT) | payer MEDICARE, MEDICAID, OTHER, SELFPAY | PROVIDERS: Family Provider Family Medicine; PCP Family Medicine; Visit Provider Family Medicine | DX: E11.9 Type 2 diabetes mellitus without complications (principal) | CPT/HCPCS: 83036 ==

== ENCOUNTER 2024-04-02 13:00 | Outpatient (RCR) | payer MEDICARE, MEDICAID, OTHER, SELFPAY ==
--- NOTE | 2024-03-15 14:27 | OT.OP.EVAL ---
Visit Care Team Role Provider Type Merle Antonio MD Attending Provider Non-Staff Family Provider Primary Care Provider Referring Provider Specialty: Family Practice Address: [address] [place] [address] [place], [id number] Email: Occupational Therapy Initial Evaluation OT Outpatient Adult Evaluation Start: 03/15/24 13:58 Freq: Status: Active Protocol: Document 03/15/24 13:59 AMS (Rec: 03/15/24 14:27 AMS [id number]) General Information - Adult Visit Number 04/23; 05/02; 19 visits -> KX 20th visit Insurance Information Medicare; [facility] Visit Start Time 13:00 Visit Stop Time 13:45 Treatment Setting Outpatient Care Note Type Initial Evaluation Identification Confirmed Yes Identification Confirmed By Self Goals Short Term Goals 1. Pawel will present with improved active range of motion of R UE: 1a. 0-40 degrees active R sh flexion. 1b. 0-60 degrees active R sh abduction. 1c. 0-30 degrees active R sh extension. 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 Pawel will be modified independent with execution of home exercise program utilizing provided written and visual instructions as needed . 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 Medical history is significant for back pain, neck pain, depression, diabetes II w/ neuropathy, L THR, vision problems (wears reading glasses), and expressive aphasia. 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 She indicated 4 out of 10 on the pain scale relative to R UE pain and 2 out of 10 on the pain scale relative to her back. QuickDASH UE Score = 75. 00. She reports sleeping on her back and avoiding sleeping on her R side. She reports residing in a local prison; caregivers assist her w/ basic self care and IADLS. She is independent w/ donning/ doffing slip on shoes, dependent w/ donning compression stockings, and needs some assist w/ UB/LB dressing. Caregivers assist her w/ cutting foods w/ self- feeding and clipping her fingernails and toenails. She ambulates utilizing manual w/c (self-propelling w/ her feet) ; she is able to manage w/c brakes without assist. She is independent w/ w/c <-> EOM transfers and denies any recent falls. She denies wearing a distal UE splint ( including night splint). She indicated desire to have e- stim treatment for distal UE. Pawel tends to position R UE in slightly abducted position w/ elbow flexion, forearm supination, wrist ext, digit flexion/w/ thumb tuck while in sitting in w/c. ROM Measurements were obtained in sitting. 0-30 degrees active R sh flexion (0-110 degrees passive R sh flexion). 0-50 degrees active R sh abduction (0-90 degrees passive R sh abduction w/ mild elbow flexion). 0-20 degrees active R sh extension. 115 degrees active R elbow flexion. -40 degrees active R elbow extension (-5 degrees passive R elbow extension). WFL active R forearm supination/ pronation. WFL R active wrist ext; 5 degrees R active wrist flexion; No active R wrist RD/ UD. No active digit extension, ABD/ADD observed. WFL passive DIPJ, PIPJ, and MPJ extension of digits 2-5; WFL passive ABD/ADD digits 2-5. WFL passive thumb ROM (IPJ flex/ ext, MPJ flex/ext, thumb abd/ add). Outpatient OT rec to review and add to current UE HEP and address tone management and range of motion of UE. Recommend exploring modalities . Length of treatment (weeks) 12 Plan of Care Start Date 03/15/24 Plan of Care End Date 06/07/24 Treatment Frequency Once a Week Therapeutic Contents Active Range of Motion, Adaptive Equipment Education, Functional Activities,Home Exercise Program,Joint Protection,Manual Therapy, Education,Neurodevelopment Treatment,Neuromuscular Re- Education,Self-Care,Stretching /Flexibility Activities, Therapeutic Activities, Therapeutic Exercises, Modalities Modalities As Needed,As Prescribed Additional Types of Modalities Heat/Ice/Contrast baths/E-stim /Ultrasound/Paraffin Bath Comment Outpatient clinic staff to contact SNF to schedule follow -up OT appts
--- NOTE | 2024-03-22 14:21 | OT.OP.TRT ---
Visit Care Team Role Provider Type Merle Antonio MD Attending Provider Non-Staff Family Provider Primary Care Provider Referring Provider Specialty: Family Practice Address: [address] [place] [address] [place], [address] Email: Occupational Therapy Treatment Note OT Outpatient Treatment Note - Adult Start: 03/15/24 13:58 Freq: Status: Active Protocol: Document 03/22/24 14:06 AMS (Rec: 03/22/24 14:21 AMS [id number]) OT Outpatient Adult Treatment Note Session Time Visit Start Time 13:00 Visit Stop Time 13:45 Visit Information Visit Number 05/24; 06/02; visits -> KX 20th visit Plan of Care Dates 03/15/24 - 06/07/24 Insurance Information Medicare Setting Treatment Setting Outpatient Care Visit Type Note Type Treatment Note General Information General Information Barbara is a 67 year-old woman referred to outpatient OT secondary to residual right sided hemiplegia. Medical history is significant for DM II, HTN, HLD, L hip replacement, and severe aphasia. She has been referred to outpatient PHOTO OFFSET PRINTER here at [facility] as well. She resides at [facility]; she is dependent with community mobility and utilizes a standard manual w/c . - Subjective Observations No new concerns were reported. Agreeable to e-stim for facilitation of digit extension. - Objective Objective Measurements Please refer to below for progress towards meeting established OT goals: 02/27/23=Able to passively form hook fist with R hand without c/o pain/discomfort. Short Term Goals 1. Pawel will present with improved active range of motion of R UE: 1a. 0-40 degrees active R sh flexion. 1b. 0-60 degrees active R sh abduction. 1c. 0-30 degrees active R sh extension. Cane Flume Chute Operator Goals 1. Pawel will be modified independent with execution of home exercise program utilizing provided written and visual instructions as needed . - Treatment 1 Descriptor Andorran e-stim. Facilitation of digit extension. 10/ cycle. Intensity 47. Skin intact pre- and post- treatment. No c/o. Blocking by therapist to encourage PIPJ extension vs isolated wrist ext/MPJ ext of 2-5 digits. Exercises 8 Descriptor Passive R UE ROM. Sh abd. 1 x 30 sec. Elbow ext w/ forearm supination. Sh add. 1 x 30 sec . 7 Descriptor Cane ROM. Sh flexion. 1 x 10. Chest press. 1 x 10. Sh hor abd/add. Min phys assist. 1 x 10. Sh circles. Min phys assist. 1 x 10. 6 Descriptor Red flex bar. Assist to obtain R handed grasp. Bending w/ L hand into 'n'. 2 x 10. Assist to obtain R handed grasp/modified exercise w/ forearm in supination. Bending w/ L hand into 'u'. 2 x 10. Assist to obtain R handed grasp. Twisting of red flex bar w/ L hand. 2 x 10. 5 Descriptor Supine Passive ROM. ER supine/elbow at side. 2 x 10. Passively executed by therapist. Hor abd w/ ER. 2 x 10. Passively executed by therapist. 4 Descriptor Supine R UE ROM. Small R shoulder circles. 1 x 8. N/A 03/22/24 R sh flex. 2 x 10. R punches to ceiling. 2 x 10. R sh abd. 2 x 10. CGA to min phys assist to facilitate. R sh flex -> sh hor abd -> add . 1 x 10. CGA to mod phys assist. R sh hor abd. 2 x 10. Min to mod phys assist to facilitate elbow ext and full sh hor abd outside base of support. R hand -> L sh -> R pocket. Diagonal. 1 x 10. R elbow flex -> ext. 2 x 10. 3 Descriptor R UE weight bearing. Tone management. L <-> R weight shifting while in sitting. 2 x 10. 2 Descriptor Cane. ROM. Strengthening. B sh flexion. 2 x 10. 3# ankle weight. B chest press. 2 x 10. 3# ankle weight. 1 Descriptor Supine R UE strengthening exercises. Sh punches to ceiling. 2 x 10. Min to mod phys assist to facilitate. N/A 02/13/23 Sh ext. 2 x 10. TB#3. Use of handle. Elbow ext. 2 x 10. TB #3. Use of handle. - Assessment Assessment of Improvement Initiated e-stim per patient request; focused on digit extension. Given elbow flexor tightness may want to consider facilitation of elbow ext. Passive sh abd, ER, hor abd ER , and elbow ext, forearm supination; rec monitoring for discomfort w/ passive sh abd, hor sh abd and ER, and ER based on nonverbal feedback provided by Pawel in today's session. Initiated cane exercises; given UE exercise history in [facility] may want to transition to increased focus R UE ROM exercises. Will need to monitor energy/ activity tolerance. Pawel indicated that she was agreeable to 1 set of 10 reps; will need to determine if limited number of exercises w/ larger sets and reps vs large number of exercises w/ decreased number of sets or reps is more suitable for Pawel . - Plan Therapy Recommendations Advance per Rehabilitation Protocol
--- NOTE | 2024-03-29 14:02 | OT.OP.TRT ---
Visit Care Team Role Provider Type Merle Antonio MD Attending Provider Non-Staff Family Provider Primary Care Provider Referring Provider Specialty: Family Practice Address: [address] [place] [address] [place], [id number] Email: Occupational Therapy Treatment Note OT Outpatient Treatment Note - Adult Start: 03/15/24 13:58 Freq: Status: Active Protocol: Document 03/29/24 13:52 AMS (Rec: 03/29/24 14:02 AMS [id number]) OT Outpatient Adult Treatment Note Session Time Visit Start Time 13:00 Visit Stop Time 13:45 Visit Information Visit Number 3; 06/30; 19 visits -> KX 20th visit Plan of Care Dates 03/15/24 - 06/07/24 Insurance Information Medicare Setting Treatment Setting Outpatient Care Visit Type Note Type Treatment Note General Information General Information Barbara is a 68 year-old woman referred to outpatient OT secondary to residual right sided hemiplegia. Medical history is significant for DM II, HTN, HLD, L hip replacement, and severe aphasia. She has been referred to outpatient STATIONARY ENGINEER SUPERVISOR here at as well. She resides at [facility]; she is dependent with community mobility and utilizes a standard manual w/c . - Subjective Observations No new concerns were reported. Agreeable to e-stim for facilitation of digit extension. - Objective Objective Measurements Please refer to below for progress towards meeting established OT goals: 02/27/23=Able to passively form hook fist with R hand without c/o pain/discomfort. Short Term Goals 1. Pawel will present with improved active range of motion of R UE: 1a. 0-40 degrees active R sh flexion. 1b. 0-60 degrees active R sh abduction. 1c. 0-30 degrees active R sh extension. Primary Mill Roller Goals 1. Pawel will be modified independent with execution of home exercise program utilizing provided written and visual instructions as needed . - Treatment 1 Descriptor Cuban e-stim. Facilitation of digit extension. 10/10 cycle. Intensity 47. Skin intact pre- and post- treatment. No c/o. Blocking by therapist to facilitate MPJ/ PIPJ/DIPJ extension. Exercises 8 Descriptor Passive R UE ROM. Sh abd. 1 x 30 sec. ER. 1 x 30 sec. Elbow ext w/ forearm supination. Sh add. 1 x 30 sec . 7 Descriptor Cane ROM. Sh flexion. 1 x 10. Chest press. 1 x 10. Sh hor abd/add. Min phys assist. 1 x 10. Sh circles. Min phys assist. 1 x 10. 5 Descriptor Supine Passive ROM. ER supine/elbow at side. 2 x 10. Passively executed by therapist. Hor abd w/ ER. 2 x 10. Passively executed by therapist. 4 Descriptor Supine R UE ROM. R sh flex. 1 x 10. R punches to ceiling. 1 x 10. Min phys assist to facilitate thru ROM. R sh abd. 1 x 10. CGA to min phys assist to facilitate. R hand -> L pocket -> R shoulder diagonal. PNF Diagonal. 1 x 10. Min phys assist to facilitate. R sh circles. 1 x 10. CW. CCW. Min phys to facilitate. R elbow flex -> ext. 1 x 10. N/A 03/29/24 R sh flex -> sh hor abd -> add . 1 x 10. CGA to mod phys assist. R sh hor abd. 2 x 10. Min to mod phys assist to facilitate elbow ext and full sh hor abd outside base of support. - Assessment Assessment of Improvement Cont e-stim per patient request; focused on digit extension. Given elbow flexor tightness may want to consider facilitation of elbow ext. Increased focus R UE ROM exercises in supine; phys assist to facilitate exercises being completed thru full ROM . Will need to monitor energy/ activity tolerance. Cont w/ 1 set of 10 reps. Rec reviewing ER w/ L UE assist w/ hands positioned on top of head. Home Exercise Program 03/29/24 = Rec PROM w/ L UE assist sh flex; x 1 w/ hold of 20 to 30 sec. Rec L UE active assist w/ ER w/ hands positioned on top of head; x 1 rep w/ hold of 20 to 30 sec. If tolerated increase to 1 set of 10 repetitions w/ sh flex and ER post- stretch. Rec execution daily. - Plan Therapy Recommendations Advance per Rehabilitation Protocol
--- NOTE | 2024-04-02 13:57 | OT.OP.TRT ---
Visit Care Team Role Provider Type Merle Antonio MD Attending Provider Non-Staff Family Provider Primary Care Provider Referring Provider Specialty: Family Practice Address: [address] [place] [address] [place], [id number] Email: Occupational Therapy Treatment Note OT Outpatient Treatment Note - Adult Start: 03/15/24 13:58 Freq: Status: Active Protocol: Document 04/02/24 13:50 AMS (Rec: 04/02/24 13:57 AMS [id number]) OT Outpatient Adult Treatment Note Session Time Visit Start Time 13:00 Visit Stop Time 13:45 Visit Information Visit Number 07/22; 07/31; 19 visits -> KX 20th visit Plan of Care Dates 03/15/24 - 06/07/24 Insurance Information Medicare Setting Treatment Setting Outpatient Care Visit Type Note Type Treatment Note General Information General Information Barbara is a 68 year-old woman referred to outpatient OT secondary to residual right sided hemiplegia. Medical history is significant for DM II, HTN, HLD, L hip replacement, and severe aphasia. She has been referred to outpatient APPLICATIONS SYSTEMS ENGINEER here at [facility] as well. She resides at [facility]; she is dependent with community mobility and utilizes a standard manual w/c . - Subjective Observations No new concerns were reported. Agreeable to e-stim for facilitation of digit extension. - Objective Objective Measurements Please refer to below for progress towards meeting established OT goals: 02/27/23=Able to passively form hook fist with R hand without c/o pain/discomfort. Short Term Goals 1. Pawel will present with improved active range of motion of R UE: 1a. 0-40 degrees active R sh flexion. 1b. 0-60 degrees active R sh abduction. 1c. 0-30 degrees active R sh extension. Capacity Planning Engineer Goals 1. Pawel will be modified independent with execution of home exercise program utilizing provided written and visual instructions as needed . - Treatment 1 Descriptor Algerian e-stim. Facilitation of digit extension. 10/ cycle. Intensity 47. Skin intact pre- and post- treatment. No c/o. Blocking by therapist to facilitate elbow extension and MPJ/PIPJ/DIPJ extension. Exercises 8 Descriptor Passive R UE ROM. Sh abd. 1 x 30 sec. ER. 1 x 30 sec. Elbow ext w/ forearm supination. Sh add. 1 x 30 sec . PNF diagonal. 1 x 30 sec. Sh flex. 1 x 30 sec. Hor abd and ER. 1 x 30 sec. 4 Descriptor Supine R UE ROM. R sh flex. 1 x 10. R punches to ceiling. 1 x 10. Min phys assist to facilitate elbow flex -> ext. R sh abd. 1 x 10. CGA to min phys assist to facilitate. R hand -> L pocket -> R shoulder diagonal. PNF Diagonal. 1 x 10. Min phys assist to facilitate. R sh circles. 1 x 10. CW. CCW. Min phys to facilitate. R elbow flex -> ext. 1 x 10. N/A 03/29/24 R sh flex -> sh hor abd -> add . 1 x 10. CGA to mod phys assist. R sh hor abd. 2 x 10. Min to mod phys assist to facilitate elbow ext and full sh hor abd outside base of support. - Assessment Assessment of Improvement Cont e-stim per patient request; facilitated elbow ext and digit extension; rec repeating e-stim w/ elbow in ext in preparation for exercises. Decreased R UE/pec tightness compared to previous treatment session; evidenced by ability to comfortably passive flex R shoulder, as well as comfortably position R hand on top of head w/ some ER (based on nonverbal facial expressions). Rec cont to work on stretching ER w/ hands positioned on top of head -> working towards positioning hands on back of head (if tolerated) given that this is a stretch that Pawel could do on her own, although, she may need reminders to execute the stretch regularly daily (from caregivers). She has been observed to rest supine w/ her L hand on back of her head w/ L elbow rested down onto mat; so it seems that this may be a position of comfort for her. Home Exercise Program 03/29/24 = Rec PROM w/ L UE assist sh flex; x 1 w/ hold of 20 to 30 sec. Rec L UE active assist w/ ER w/ hands positioned on top of head; x 1 rep w/ hold of 20 to 30 sec. If tolerated increase to 1 set of 10 repetitions w/ sh flex and ER post- stretch. Rec execution daily. - Plan Therapy Recommendations Advance per Rehabilitation Protocol
--- NOTE | 2024-06-07 12:52 | OT.OP.DC ---
Visit Care Team Role Provider Type Merle Antonio MD Attending Provider Non-Staff Family Provider Primary Care Provider Referring Provider Address: [address] [place] [address] [place], [address] Email: OT Outpatient OT Outpatient Adult Evaluation Start: 03/15/24 13:58 Freq: Status: Active Protocol: Document 03/15/24 13:59 AMS (Rec: 03/15/24 14:27 AMS [id number]) General Information - Adult Visit Information Visit Number 04/23; 05/02; 19 visits -> KX 20th visit Insurance Information Medicare; [facility] Session Time Visit Start Time 13:00 Visit Stop Time 13:45 Setting Treatment Setting Outpatient Care Visit Type Note Type Initial Evaluation Identification Identification Confirmed Yes Identification Confirmed By Self Goals Short Term Goals Short Term Goals 1. Pawel will present with improved active range of motion of R UE: 1a. 0-40 degrees active R sh flexion. 1b. 0-60 degrees active R sh abduction. 1c. 0-30 degrees active R sh extension. Credit Director Goals Custodial Goals 1. Pawel will be modified independent with execution of home exercise program utilizing provided written and visual instructions as needed . Assessment/Plan Assessment Treatment Assessment Barbara Sheldon) is 68 y.o.; h/o R handedness; referred to outpatient OT d/t hemiplegia following CVA affecting right dominant side. Medical history is significant for back pain, neck pain, depression, diabetes II w/ neuropathy, L THR, vision problems (wears reading glasses), and expressive aphasia. 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 She indicated 4 out of 10 on the pain scale relative to R UE pain and 2 out of 10 on the pain scale relative to her back. QuickDASH UE Score = 75. 00. She reports sleeping on her back and avoiding sleeping on her R side. She reports residing in a local [facility]; caregivers assist her w/ basic self care and IADLS. She is independent w/ donning/ doffing slip on shoes, dependent w/ donning compression stockings, and needs some assist w/ UB/LB dressing. Caregivers assist her w/ cutting foods w/ self- feeding and clipping her fingernails and toenails. She ambulates utilizing manual w/c (self-propelling w/ her feet) ; she is able to manage w/c brakes without assist. She is independent w/ w/c <-> EOM transfers and denies any recent falls. She denies wearing a distal UE splint ( including night splint). She indicated desire to have e- stim treatment for distal UE. Pawel tends to position R UE in slightly abducted position w/ elbow flexion, forearm supination, wrist ext, digit flexion/w/ thumb tuck while in sitting in w/c. ROM Measurements were obtained in sitting. 0-30 degrees active R sh flexion (0-110 degrees passive R sh flexion). 0-50 degrees active R sh abduction (0-90 degrees passive R sh abduction w/ mild elbow flexion). 0-20 degrees active R sh extension. 115 degrees active R elbow flexion. -40 degrees active R elbow extension (-5 degrees passive R elbow extension). WFL active R forearm supination/ pronation. WFL R active wrist ext; 5 degrees R active wrist flexion; No active R wrist RD/ UD. No active digit extension, ABD/ADD observed. WFL passive DIPJ, PIPJ, and MPJ extension of digits 2-5; WFL passive ABD/ADD digits 2-5. WFL passive thumb ROM (IPJ flex/ ext, MPJ flex/ext, thumb abd/ add). Outpatient OT rec to review and add to current UE HEP and address tone management and range of motion of UE. Recommend exploring modalities . Plan Length of treatment (weeks) 12 Plan of Care Start Date 03/15/24 Plan of Care End Date 06/07/24 Treatment Frequency Once a Week Therapeutic Contents Active Range of Motion, Adaptive Equipment Education, Functional Activities,Home Exercise Program,Joint Protection,Manual Therapy, Education,Neurodevelopment Treatment,Neuromuscular Re- Education,Self-Care,Stretching /Flexibility Activities, Therapeutic Activities, Therapeutic Exercises, Modalities Modalities As Needed,As Prescribed Additional Types of Modalities Heat/Ice/Contrast baths/E-stim /Ultrasound/Paraffin Bath Comment Outpatient clinic staff to contact SNF to schedule follow -up OT appts Functional Wrist/Hand Scan Hand Side Sensory Assessment Sensory Profile2 OT Outpatient Treatment Note - Adult Start: 03/15/24 13:58 Freq: Status: Active Protocol: Document 06/07/24 12:50 AMS (Rec: 06/07/24 12:52 AMS [id number]) OT Outpatient Adult Treatment Note Visit Information Visit Number 07/22; 07/31; 19 visits -> KX 20th visit Plan of Care Dates 03/15/24 - 06/07/24 Insurance Information Medicare Setting Treatment Setting Outpatient Care Visit Type Note Type Discharge Summary General Information General Information Barbara is a 68 year-old woman referred to outpatient OT secondary to residual right sided hemiplegia. Medical history is significant for DM II, HTN, HLD, L hip replacement, and severe aphasia. She has been referred to outpatient SYSTEMS TEST ANALYST here at [facility] as well. She resides at [facility]; she is dependent with community mobility and utilizes a standard manual w/c . - Subjective Observations Pawel has not been seen by an outpatient OT since 04/02/24 and her OT POC expires today; thus, recommend d/c from outpatient OT at this time and therapist to re-evaluate as deemed appropriate by PCP with receipt of new outpatient referral. - Objective Objective Measurements Please refer to below for progress towards meeting established OT goals: 02/27/23=Able to passively form hook fist with R hand without c/o pain/discomfort. Short Term Goals D/C OT GOALS 06/07/24 1. Pawel will present with improved active range of motion of R UE: 1a. 0-40 degrees active R sh flexion. 1b. 0-60 degrees active R sh abduction. 1c. 0-30 degrees active R sh extension. Custodial Goals D/C OT GOALS 06/07/24 1. Pawel will be modified independent with execution of home exercise program utilizing provided written and visual instructions as needed . - - Assessment Assessment of Improvement Pawel has not been seen by an outpatient OT since 04/02/24 and her OT POC expires today; thus, recommend d/c from outpatient OT at this time and therapist to re-evaluate as deemed appropriate by PCP with receipt of new outpatient referral. - Plan Therapy Recommendations Discharge from Occupational Therapy
== END 2024-06-11 08:33 | disposition home or self-care (01) ==
LOC: OT 13:00
PROVIDERS: Family Provider Family Medicine; PCP Family Medicine; Referring Provider Family Medicine; Visit Provider Family Medicine
DX: I69.351 Hemiplegia and hemiparesis following cerebral infarction affecting right dominant side (principal)
CPT/HCPCS: 97032; 97110; 97166; 97530

== ENCOUNTER 2024-07-01 13:45 | Outpatient (RCR) | payer MEDICARE, MEDICAID, OTHER, SELFPAY ==
--- NOTE | 2024-04-01 15:40 | PT.OIE ---
Current Diagnoses Hemiplegia and hemiparesis following cerebral infarction affecting right dominant side (04/01/24) Unilateral primary osteoarthritis, right knee (04/01/24) Primary osteoarthritis, right shoulder (04/01/24) Stiffness of right shoulder, not elsewhere classified (04/01/24) Stiffness of right hip, not elsewhere classified (04/01/24) Stiffness of right knee, not elsewhere classified (04/01/24) Stiffness of right ankle, not elsewhere classified (04/01/24) Other lack of coordination (04/01/24) Weakness (04/01/24) Past Medical History (Last Updated 02/25/24 @ 12:41 by Don Ho MD) CVA (cerebral vascular accident) Diabetes Expressive aphasia History of depression Hx of diabetes mellitus Hx of rheumatoid arthritis Hyperlipidemia Hypertension Nonverbal Right hemiparesis Tobacco use Urinary retention Past Surgical History (Last Reviewed 02/25/24 @ 12:39 by Don Ho MD) Surgical history unknown Visit Care Team Role Provider Type Merle Antonio MD Attending Provider Non-Staff Family Provider Primary Care Provider Referring Provider Specialty: [facility] Address: [address] [place] [address], [facility] Email: Physical Therapy Initial Evaluation PT-OP-A Visit Information Start: 03/31/24 11:47 Freq: Status: Active Protocol: Document 04/01/24 09:47 NM (Rec: 04/01/24 11:19 NM [id number]) Out-Patient Physical Therapy Visit Information Visit Information Visit Type Initial Evaluation Visit Note KX after 19 visits Prefers Pawel Visit Start Time 09:50 Visit Stop Time 10:35 Visit Number 1 Evaluation Information Evaluation Date 04/01/24 Precautions Precautions Hx CVA with R sided deficits, fall risk PT-OP-B Current Condition Start: 03/31/24 11:47 Freq: Status: Active Protocol: Document 04/01/24 09:47 NM (Rec: 04/01/24 11:19 NM [id number]) Current Condition History of Current Condition History of Current Condition Pt presents to PT with R sided deficits following a L sided CVA 5 years ago. Pt primarily uses a manual wheelchair for mobility, utilizing BLE to propel (L>R) herself. Pt is largely non-verbal following her stroke, demonstrating expressive aphasia; she utilizes a chart to express her needs and is able to express yes/no to provide history. Pt lives in an assisted living facility and has caregivers at the facility who assist with ADLs; however , she presents to the evaluation alone. Pt reports that she is IND for most dressing ADLs (e.g. don/doff shoes and compression hose) but needs assist for eating. Prior to her CVA, pt was IND with all ADLs and mobility; she did not use any AD. Pt has not ambulated since her stroke 5 years ago. She does not stand except to transfer. Pt is IND with transfers from her chair to the bed, using a stand-step pivot toward her L side. Pt's RUE is flexed at her elbow, then supinated with wrist extension and finger flexion. Pt does report prn R knee, low back, and R shoulder /hand pain. She does not have an AFO. Pt presents to clinic with a spc but reports that she had not used her spc for mobility; did not use prior to CVA. Pt primarily relies on the bus for transportation. Prior Treatments and Tests Pt is concurrently in speech and occupation therapy Treatment Goals Patient/Caregiver Goals Pawel's goal is to ambulate PT-OP-C Subjective Start: 03/31/24 11:47 Freq: Status: Active Protocol: Document 04/01/24 09:47 NM (Rec: 04/01/24 11:19 NM [id number]) OP-PT Subjective Patient Comments Patient Comments Pt reports tylenol 3x/day for hand pain. Pt also consents to have PT assist with filling out her [facility] paperwork, LEFS, and pain chart Patient Questionnaires Lower Extremity Functional Scale LEFS Score 4/80 OP-PT Pain Assessment Home Pain Medication Use Pain Medications Used tylenol 3x/day for hand pain Comments Pain Comments Pt denies pain at evaluation; however, she does report that she gets pain occasionally her R hand/shoulder, low back, and her R knee PT-OP-D Balance Start: 03/31/24 11:47 Freq: Status: Active Protocol: Document 04/01/24 09:47 NM (Rec: 04/01/24 11:19 NM [id number]) OP-PT Balance Assessment Sitting Balance Static Sitting Balance Ability Good Dynamic Sitting Balance Ability Good Sitting Balance Comments Function in Sitting Test (FIST ): Standing Balance Static Standing Balance Ability Poor Dynamic Standing Balance Ability Poor Murray Fall Scale Copyright Permission PT-OP-F Manual Assessment Start: 03/31/24 11:47 Freq: Status: Active Protocol: Document 04/01/24 09:47 NM (Rec: 04/01/24 11:19 NM [id number]) Manual Assessments Joint Mobility Assessment Joint Mobility Assessment Limitations with passive R knee flex, full ext PROM; mild limitations AROM in supine; hyperextension in stance. Decreased R ankle dorsiflexion and plantarflexion mobility Decreased R scapular mobility and glenohumeral translation PT-OP-G Mobility & Gait Start: 03/31/24 11:47 Freq: Status: Active Protocol: Document 04/01/24 09:47 NM (Rec: 04/01/24 11:19 NM [id number]) OP Mobility Evaluation Bed Mobility Rolling unable to roll R rolls to L side with block motion with L sided assist to side Supine to and from Sit to L side, using LUE to stabilize, needs min A at trunk to stabilize Transfers Sit to Stand needs 1 UE to assist with stand and scooting to edge of wheelchair, demos hyperextension of R knee once in stance. Strong tendency to shift toward L side, use LLE to rise, RLE further from sit Bed to Chair Transfers partial step pivot IND to L side from wheel chair to EOM Wheelchair Management Type of Wheelchair manual Special Equipment cushion air Assessment Details using LLE to propel OP Gait Assessment Gait Gait Assistance Required: Maximum Assistance,1 Person Assist Assistive Devices Assistive Device Gait Belt,Eros Walker Gait Deviations General Gait Pattern Antalgic,Flexed Trunk Comments Gait Comments Pt able to lift ea LE individually in place but unable to actually advance RLE , limited in part by inability to coordinate R hip/knee flexion in standing position and poor R foot clearance. Needs PT to block R knee to prevent buckling in R stance while minimally advancing LLE using hemiwalker on L side. Heavily dependent on LUE for support when attempting to lift RLE from floor. PT-OP-H Neuro Start: 03/31/24 11:47 Freq: Status: Active Protocol: Document 04/01/24 09:47 NM (Rec: 04/01/24 11:19 NM [id number]) Coordination Evaluation Upper Extremity Tests Right Finger to Nose Test Activity Impossible Finger to Therapist's Finger Test Activity Impossible Pronation/Supination Test Activity Impossible Left Finger to Nose Test Severe Impairment Finger to Therapist's Finger Test Moderate Impairment Pronation/Supination Test Severe Impairment Lower Extremity Tests Right Alternate Heel to Knee; Heel to Toe Test Severe Impairment Heel on Taylor Test Severe Impairment Foot Tapping Test Severe Impairment Left Alternate Heel to Knee; Heel to Toe Test Severe Impairment Heel on Taylor Test Moderate Impairment Foot Tapping Test Minimal Impairment Muscle Tone Tone Assessment Right Lower Extremity Extensor Tone Description Mild Hypertonicity Muscle Tone Comments More tone is present at R foot with supination/ plantarflexion than at hip/ knee Right Upper Extremity Flexor Tone Description Severe Hypertonicity PT-OP-J Posture/Palpation/Skin Start: 03/31/24 11:47 Freq: Status: Active Protocol: Document 04/01/24 09:47 NM (Rec: 04/01/24 16:02 NM [id number]) Posture Evaluation Comments Posture Comments In wheelchair, pt presents with forward head posture, rounded shoulder and slight kyphotic posture. Her RUE is abducted with elbow flexion, forearm supination, wrist extension, and finger flexion with thumb tucked inside her fingers. Her BLE are at 90/90 position at hip/knee at floor with slight supination/ plantarflexion in R foot PT-OP-K Range of Motion Start: 03/31/24 11:47 Freq: Status: Active Protocol: Document 04/01/24 09:47 NM (Rec: 04/01/24 15:56 NM [id number]) Shoulder Goniometric Range of Motion Shoulder ROM Limitations Comments Defer to OT for UE ADLs at this time Knee Goniometric Range of Motion Knee Right Flexion Active (degrees) 115 Extension Active (degrees) 5 Left Flexion Active (degrees) 130 Extension Active (degrees) 3 Ankle and Foot Goniometric Range of Motion Ankle and Foot Right Plantarflexion 20 Comments lacking 10 deg from neutral dorsiflexion Left Dorsiflexion with Knee Extended 3 Plantarflexion 30 PT-OP-M Strength Start: 03/31/24 11:47 Freq: Status: Active Protocol: Document 04/01/24 09:47 NM (Rec: 04/01/24 11:19 NM [id number]) Shoulder Strength Shoulder Manual Muscle Testing Left Flexion 3+ Fair+ Abduction (C5) 3+ Fair+ Internal Rotation 4- Good- Horizontal Abduction 4- Good- Comments bicep 4/5 Hip Strength Hip Manual Muscle Testing Right Flexion (L2) 3+ Fair+ Extension (S1) 2+ Poor+ Abduction 3 Fair Adduction 2+ Poor+ Left Flexion (L2) 4- Good- Extension (S1) 3+ Fair+ Abduction 4- Good- Adduction 4- Good- Comments tendency to move into hip ER with hip flexion Knee Strength Knee Manual Muscle Testing Right Flexion (S2) 3 Fair Extension (L3) 3+ Fair+ Left Flexion (S2) 4- Good- Extension (L3) 3+ Fair+ Ankle/Foot Strength Ankle and Foot Manual Muscle Testing Right Dorsiflexion (L4) 2+ Poor+ Plantarflexion (S1) 3 Fair Comments tested in sitting Left Dorsiflexion (L4) 3 Fair Plantarflexion (S1) 3 Fair Comments tested in sitting PT-OP-T Assessment and Plan Start: 03/31/24 11:47 Freq: Status: Active Protocol: Document 04/01/24 09:47 NM (Rec: 04/01/24 11:19 NM [id number]) Physical Therapy Assessment Rehab Potential Rehabilitation Potential Fair Evaluation Complexity Number of Personal Factors/Comorbidities 3 or More Number of Body Systems Impaired 4 or More Clinical Presentation at Evaluation Stable Impairments Impairments Activity Tolerance,Balance, Coordination,Edema,Functional Activities,Functional Mobility ,Gait,Integument,Pain,Posture, ROM,Sensation,Soft Tissue Mobility,Strength,Tone, Transfers,Vestibular,Visual Motor Other Concerns Fall Risk increased Age Related Concerns PMH: arthritis, back pain, depression, diabetes II, neuropathy, falls, hearing problems, joint replacement (L SANDIP), neck pain, stroke/TIA, thyroid disorder, vision problems (wear glasses). Hx abdominal surgery Barriers to Rehabilitation Pt is nonverbal and relies on chart or gestures/head movements for communication. She is reliant on public transportation for appointments and does not have anyone who can attend PT sessions with her for carryover. Pt's goal for PT is to ambulate again; however, she has not ambulated since her stroke, relying primarily on her wheelchair for mobility . PT provided education on realistic expectations with mobility following pt expressing goal for ambulation after not ambulating following her CVA. Goals Four Impairment standing balance impaired Fci Goal (LTG) Pt will be able to stand with equal WB using AD with SPV or better for at least 2 minutes in initiation for future standing ADLs or gait training , if appropriate LTG Duration 12 weeks Three Impairment impaired RLE strength for transfers Glass Toughening Operator Goal (LTG) Pt will be able to perform sit to stand transfer to AD with SPV or better LTG Duration 12 weeks Two Impairment bed mobility and chair transfers impaired Short Term Goal (STG) Pt will be able to scoot in multiple directions with or without UE assist in order to facilitate more efficient transfers to/from wheel chair and bed mobility STG Duration 8 weeks Glass Toughening Operator Goal (LTG) Pt will improve FIST score >40 /56 to demonstrate improved stability and trunk control during transfers LTG Duration 12 weeks One Impairment not performing HEP for carryover with PT sessions Glass Toughening Operator Goal (LTG) If appropriate, pt will be IND with HEP in order to maximize progression with PT and maintain progress upon discharge LTG Duration 12 weeks Assessment Summary Assessment Pt is a 68 y.o. female presenting s/p chronic CVA with R hemiplegia and deficits in ROM, strength, expressive aphasia, and tone. Pt primarily uses a manual wheelchair for mobility, propelling with her feet. She has not ambulated following her CVA and pt denies previous rehab following her CVA. Pt has impairments in bed mobility (scooting, rolling), sit to stand transfers, sitting and standing balance, tone management, coordination, and communication. Pt has tone in RUE that limits ROM and strength; pt also has considerable weakness in her RLE especially in her quad/ glutes, along with tone. Pt demos R knee hyperextension in stance, and she is unable to advance her RLE during transfers or stepping. She is currently also receiving occupational and speech therapy. PT educated pt on exam findings and plan of care . Pt would benefit from skilled PT in order to improve safety during transfers, decrease fall risk, and to maximize functional mobility. Physical Therapy Plan Frequency and Duration Frequency of Treatment 1-2x/wk Duration of treatment (weeks) 12 Plan of Care Start Date 04/01/24 Plan of Care End Date 06/25/24 Therapeutic Interventions Therapeutic Interventions Balance Training,Canalithic Repositioning,Coordination Training,Gait Training,Home Exercise Program,Joint Mobilizations,Manual Therapy, Neuromuscular Re-education, Orthotic/Prosthetic Management ,Patient/Caregiver Education, Self-Care/Home Management, Sensory Integration,Soft Tissue Mobilization,Taping, Therapeutic Activities, Therapeutic Exercises, Vestibular Rehabilitation Modalities Biofeedback,Cold Pack/Ice Massage,Electric Stimulation, Hot Packs,Ultrasound Next Visit Focus/Plan Next Note Type Treatment Note Next Visit Plan Address safety with transfers, scooting, and STS. Education on and fitting for possible AFO, AD for STS if needed seated balance training. RLE strengthening of quad/glute
--- NOTE | 2024-04-08 17:01 | PT.OTN ---
Current Diagnoses Hemiplegia and hemiparesis following cerebral infarction affecting right dominant side (04/08/24) Unilateral primary osteoarthritis, right knee (04/08/24) Primary osteoarthritis, right shoulder (04/08/24) Stiffness of right shoulder, not elsewhere classified (04/08/24) Stiffness of right hip, not elsewhere classified (04/08/24) Stiffness of right knee, not elsewhere classified (04/08/24) Stiffness of right ankle, not elsewhere classified (04/08/24) Other lack of coordination (04/08/24) Weakness (04/08/24) Physical Therapy Treatment Note PT-OP-A Visit Information Start: 03/31/24 11:47 Freq: Status: Active Protocol: Document 04/08/24 16:15 DCW (Rec: 04/08/24 17:01 DCW [id number]) Out-Patient Physical Therapy Visit Information Visit Information Visit Type Treatment Note Visit Start Time 16:15 Visit Stop Time 17:00 Visit Number 2 Number of FLYING SQUAD SALESPERSON Visits 0 Evaluation Information Evaluation Date 04/01/24 Precautions Precautions Hx CVA with R sided deficits, fall risk PT-OP-B Current Condition Start: 03/31/24 11:47 Freq: Status: Active Protocol: Document 04/01/24 09:47 NM (Rec: 04/01/24 11:19 NM [id number]) Current Condition History of Current Condition History of Current Condition Pt presents to PT with R sided deficits following a L sided CVA 5 years ago. Pt primarily uses a manual wheelchair for mobility, utilizing BLE to propel (L>R) herself. Pt is largely non-verbal following her stroke, demonstrating expressive aphasia; she utilizes a chart to express her needs and is able to express yes/no to provide history. Pt lives in an assisted living facility and has caregivers at the facility who assist with ADLs; however , she presents to the evaluation alone. Pt reports that she is IND for most dressing ADLs (e.g. don/doff shoes and compression hose) but needs assist for eating. Prior to her CVA, pt was IND with all ADLs and mobility; she did not use any AD. Pt has not ambulated since her stroke 5 years ago. She does not stand except to transfer. Pt is IND with transfers from her chair to the bed, using a stand-step pivot toward her L side. Pt's RUE is flexed at her elbow, then supinated with wrist extension and finger flexion. Pt does report prn R knee, low back, and R shoulder /hand pain. She does not have an AFO. Pt presents to clinic with a spc but reports that she had not used her spc for mobility; did not use prior to CVA. Pt primarily relies on the bus for transportation. Prior Treatments and Tests Pt is concurrently in speech and occupation therapy Treatment Goals Patient/Caregiver Goals Pawel's goal is to ambulate PT-OP-C Subjective Start: 03/31/24 11:47 Freq: Status: Active Protocol: Document 04/08/24 16:15 DCW (Rec: 04/08/24 17:01 DCW [id number]) OP-PT Subjective Patient Comments Patient Comments Pt denies that she does any walking at home. Denies pain today. PT-OP-D Balance Start: 03/31/24 11:47 Freq: Status: Active Protocol: Document 04/01/24 09:47 NM (Rec: 04/01/24 11:19 NM [id number]) OP-PT Balance Assessment Sitting Balance Static Sitting Balance Ability Good Dynamic Sitting Balance Ability Good Sitting Balance Comments Function in Sitting Test (FIST ): Standing Balance Static Standing Balance Ability Poor Dynamic Standing Balance Ability Poor Murray Fall Scale Copyright Permission PT-OP-F Manual Assessment Start: 03/31/24 11:47 Freq: Status: Active Protocol: Document 04/01/24 09:47 NM (Rec: 04/01/24 11:19 NM [id number]) Manual Assessments Joint Mobility Assessment Joint Mobility Assessment Limitations with passive R knee flex, full ext PROM; mild limitations AROM in supine; hyperextension in stance. Decreased R ankle dorsiflexion and plantarflexion mobility Decreased R scapular mobility and glenohumeral translation PT-OP-G Mobility & Gait Start: 03/31/24 11:47 Freq: Status: Active Protocol: Document 04/01/24 09:47 NM (Rec: 04/01/24 11:19 NM [id number]) OP Mobility Evaluation Bed Mobility Rolling unable to roll R rolls to L side with block motion with L sided assist to side Supine to and from Sit to L side, using LUE to stabilize, needs min A at trunk to stabilize Transfers Sit to Stand needs 1 UE to assist with stand and scooting to edge of wheelchair, demos hyperextension of R knee once in stance. Strong tendency to shift toward L side, use LLE to rise, RLE further from sit Bed to Chair Transfers partial step pivot IND to L side from wheel chair to EOM Wheelchair Management Type of Wheelchair manual Special Equipment cushion air Assessment Details using LLE to propel OP Gait Assessment Gait Gait Assistance Required: Maximum Assistance,1 Person Assist Assistive Devices Assistive Device Gait Belt,Eros Walker Gait Deviations General Gait Pattern Antalgic,Flexed Trunk Comments Gait Comments Pt able to lift ea LE individually in place but unable to actually advance RLE , limited in part by inability to coordinate R hip/knee flexion in standing position and poor R foot clearance. Needs PT to block R knee to prevent buckling in R stance while minimally advancing LLE using hemiwalker on L side. Heavily dependent on LUE for support when attempting to lift RLE from floor. PT-OP-H Neuro Start: 03/31/24 11:47 Freq: Status: Active Protocol: Document 04/01/24 09:47 NM (Rec: 04/01/24 11:19 NM [id number]) Coordination Evaluation Upper Extremity Tests Right Finger to Nose Test Activity Impossible Finger to Therapist's Finger Test Activity Impossible Pronation/Supination Test Activity Impossible Left Finger to Nose Test Severe Impairment Finger to Therapist's Finger Test Moderate Impairment Pronation/Supination Test Severe Impairment Lower Extremity Tests Right Alternate Heel to Knee; Heel to Toe Test Severe Impairment Heel on Taylor Test Severe Impairment Foot Tapping Test Severe Impairment Left Alternate Heel to Knee; Heel to Toe Test Severe Impairment Heel on Taylor Test Moderate Impairment Foot Tapping Test Minimal Impairment Muscle Tone Tone Assessment Right Lower Extremity Extensor Tone Description Mild Hypertonicity Muscle Tone Comments More tone is present at R foot with supination/ plantarflexion than at hip/ knee Right Upper Extremity Flexor Tone Description Severe Hypertonicity PT-OP-J Posture/Palpation/Skin Start: 03/31/24 11:47 Freq: Status: Active Protocol: Document 04/01/24 09:47 NM (Rec: 04/01/24 16:02 NM [id number]) Posture Evaluation Comments Posture Comments In wheelchair, pt presents with forward head posture, rounded shoulder and slight kyphotic posture. Her RUE is abducted with elbow flexion, forearm supination, wrist extension, and finger flexion with thumb tucked inside her fingers. Her BLE are at 90/90 position at hip/knee at floor with slight supination/ plantarflexion in R foot PT-OP-K Range of Motion Start: 03/31/24 11:47 Freq: Status: Active Protocol: Document 04/01/24 09:47 NM (Rec: 04/01/24 15:56 NM [id number]) Shoulder Goniometric Range of Motion Shoulder ROM Limitations Comments Defer to OT for UE ADLs at this time Knee Goniometric Range of Motion Knee Right Flexion Active (degrees) 115 Extension Active (degrees) 5 Left Flexion Active (degrees) 130 Extension Active (degrees) 3 Ankle and Foot Goniometric Range of Motion Ankle and Foot Right Plantarflexion 20 Comments lacking 10 deg from neutral dorsiflexion Left Dorsiflexion with Knee Extended 3 Plantarflexion 30 PT-OP-M Strength Start: 03/31/24 11:47 Freq: Status: Active Protocol: Document 04/01/24 09:47 NM (Rec: 04/01/24 11:19 NM [id number]) Shoulder Strength Shoulder Manual Muscle Testing Left Flexion 3+ Fair+ Abduction (C5) 3+ Fair+ Internal Rotation 4- Good- Horizontal Abduction 4- Good- Comments bicep 4/5 Hip Strength Hip Manual Muscle Testing Right Flexion (L2) 3+ Fair+ Extension (S1) 2+ Poor+ Abduction 3 Fair Adduction 2+ Poor+ Left Flexion (L2) 4- Good- Extension (S1) 3+ Fair+ Abduction 4- Good- Adduction 4- Good- Comments tendency to move into hip ER with hip flexion Knee Strength Knee Manual Muscle Testing Right Flexion (S2) 3 Fair Extension (L3) 3+ Fair+ Left Flexion (S2) 4- Good- Extension (L3) 3+ Fair+ Ankle/Foot Strength Ankle and Foot Manual Muscle Testing Right Dorsiflexion (L4) 2+ Poor+ Plantarflexion (S1) 3 Fair Comments tested in sitting Left Dorsiflexion (L4) 3 Fair Plantarflexion (S1) 3 Fair Comments tested in sitting PT-OP-Q Treatments Start: 03/31/24 11:47 Freq: Status: Active Protocol: Document 04/08/24 16:15 DCW (Rec: 04/08/24 17:01 DCW [id number]) Gym Equipment Shuttle Recovery Unilateral Squats Resistance 37# Bilateral Squats Resistance 62# Therapeutic Exercises Sitting Exercises Hip Abduction Sitting Exercise Name Hip Abduction Side bilateral Resistance Lv 2 Hamstring Curls Sitting Exercise Name Hamstring Curls Side right Resistance Lv 2 Gait Training Gait Activity Hemiwalker Device Used Hemiwalker Level of Assistance CGA Distance/Duration 22' Comments w/c follow // Bars Device Used // bars and SPC Level of Assistance CGA Distance/Duration // bars 10' x2, SPC 10' x4 PT-OP-T Assessment and Plan Start: 03/31/24 11:47 Freq: Status: Active Protocol: Document 04/08/24 16:15 DCW (Rec: 04/08/24 17:01 DCW [id number]) Physical Therapy Assessment Impairments Impairments Activity Tolerance,Balance, Coordination,Edema,Functional Activities,Functional Mobility ,Gait,Integument,Pain,Posture, ROM,Sensation,Soft Tissue Mobility,Strength,Tone, Transfers,Vestibular,Visual Motor Other Concerns Fall Risk increased Age Related Concerns PMH: arthritis, back pain, depression, diabetes II, neuropathy, falls, hearing problems, joint replacement (L SANDIP), neck pain, stroke/TIA, thyroid disorder, vision problems (wear glasses). Hx abdominal surgery Barriers to Rehabilitation Pt is nonverbal and relies on chart or gestures/head movements for communication. She is reliant on public transportation for appointments and does not have anyone who can attend PT sessions with her for carryover. Pt's goal for PT is to ambulate again; however, she has not ambulated since her stroke, relying primarily on her wheelchair for mobility . PT provided education on realistic expectations with mobility following pt expressing goal for ambulation after not ambulating following her CVA. Goals Four Impairment standing balance impaired Clinical Dermatologist Goal (LTG) Pt will be able to stand with equal WB using AD with SPV or better for at least 2 minutes in initiation for future standing ADLs or gait training , if appropriate LTG Duration 12 weeks Three Impairment impaired RLE strength for transfers Clinical Dermatologist Goal (LTG) Pt will be able to perform sit to stand transfer to AD with SPV or better LTG Duration 12 weeks Two Impairment bed mobility and chair transfers impaired Short Term Goal (STG) Pt will be able to scoot in multiple directions with or without UE assist in order to facilitate more efficient transfers to/from wheel chair and bed mobility STG Duration 8 weeks Clinical Dermatologist Goal (LTG) Pt will improve FIST score >40 /56 to demonstrate improved stability and trunk control during transfers LTG Duration 12 weeks One Impairment not performing HEP for carryover with PT sessions Clinical Dermatologist Goal (LTG) If appropriate, pt will be IND with HEP in order to maximize progression with PT and maintain progress upon discharge LTG Duration 12 weeks Assessment Summary Assessment Pt tolerated treatment very well today, demonstrating ambulation using // bars, SPC, and hemiwalker CGA for total of 82'. Did well advancing affected leg. Tolerated strengthening well, but clearly fatigued by end of session. Physical Therapy Plan Frequency and Duration Frequency of Treatment 1-2x/wk Duration of treatment (weeks) 12 Plan of Care Start Date 04/01/24 Plan of Care End Date 06/25/24 Therapeutic Interventions Therapeutic Interventions Balance Training,Canalithic Repositioning,Coordination Training,Gait Training,Home Exercise Program,Joint Mobilizations,Manual Therapy, Neuromuscular Re-education, Orthotic/Prosthetic Management ,Patient/Caregiver Education, Self-Care/Home Management, Sensory Integration,Soft Tissue Mobilization,Taping, Therapeutic Activities, Therapeutic Exercises, Vestibular Rehabilitation Modalities Biofeedback,Cold Pack/Ice Massage,Electric Stimulation, Hot Packs,Ultrasound Next Visit Focus/Plan Next Note Type Treatment Note Next Visit Plan Address safety with transfers, scooting, and STS. Education on and fitting for possible AFO, AD for STS if needed seated balance training. RLE strengthening of quad/glute
--- NOTE | 2024-04-21 12:20 | PT.OTN ---
Current Diagnoses Hemiplegia and hemiparesis following cerebral infarction affecting right dominant side (04/21/24) Unilateral primary osteoarthritis, right knee (04/21/24) Primary osteoarthritis, right shoulder (04/21/24) Stiffness of right shoulder, not elsewhere classified (04/21/24) Stiffness of right hip, not elsewhere classified (04/21/24) Stiffness of right knee, not elsewhere classified (04/21/24) Stiffness of right ankle, not elsewhere classified (04/21/24) Other lack of coordination (04/21/24) Weakness (04/21/24) Physical Therapy Treatment Note PT-OP-A Visit Information Start: 03/31/24 11:47 Freq: Status: Active Protocol: Document 04/21/24 11:35 SP (Rec: 04/21/24 12:36 SP [id number]) Out-Patient Physical Therapy Visit Information Visit Information Visit Type Treatment Note Visit Start Time 11:35 Visit Stop Time 12:20 Visit Number 3 Number of TOPOGRAPHY TECHNICIAN Visits 1 Evaluation Information Evaluation Date 04/01/24 Precautions Precautions Hx CVA with R sided deficits, fall risk Uses: lettering & number HO for communication support. PT-OP-B Current Condition Start: 03/31/24 11:47 Freq: Status: Active Protocol: Document 04/01/24 09:47 NM (Rec: 04/01/24 11:19 NM [id number]) Current Condition History of Current Condition History of Current Condition Pt presents to PT with R sided deficits following a L sided CVA 5 years ago. Pt primarily uses a manual wheelchair for mobility, utilizing BLE to propel (L>R) herself. Pt is largely non-verbal following her stroke, demonstrating expressive aphasia; she utilizes a chart to express her needs and is able to express yes/no to provide history. Pt lives in an assisted living facility and has caregivers at the facility who assist with ADLs; however , she presents to the evaluation alone. Pt reports that she is IND for most dressing ADLs (e.g. don/doff shoes and compression hose) but needs assist for eating. Prior to her CVA, pt was IND with all ADLs and mobility; she did not use any AD. Pt has not ambulated since her stroke 5 years ago. She does not stand except to transfer. Pt is IND with transfers from her chair to the bed, using a stand-step pivot toward her L side. Pt's RUE is flexed at her elbow, then supinated with wrist extension and finger flexion. Pt does report prn R knee, low back, and R shoulder /hand pain. She does not have an AFO. Pt presents to clinic with a spc but reports that she had not used her spc for mobility; did not use prior to CVA. Pt primarily relies on the bus for transportation. Prior Treatments and Tests Pt is concurrently in speech and occupation therapy Treatment Goals Patient/Caregiver Goals Pawel's goal is to ambulate PT-OP-C Subjective Start: 03/31/24 11:47 Freq: Status: Active Protocol: Document 04/21/24 11:35 SP (Rec: 04/21/24 12:36 SP [id number]) OP-PT Subjective Patient Comments Patient Comments Pt agreeable to standing activities and transfers. PT-OP-D Balance Start: 03/31/24 11:47 Freq: Status: Active Protocol: Document 04/01/24 09:47 NM (Rec: 04/01/24 11:19 NM [id number]) OP-PT Balance Assessment Sitting Balance Static Sitting Balance Ability Good Dynamic Sitting Balance Ability Good Sitting Balance Comments Function in Sitting Test (FIST ): Standing Balance Static Standing Balance Ability Poor Dynamic Standing Balance Ability Poor Murray Fall Scale Copyright Permission PT-OP-F Manual Assessment Start: 03/31/24 11:47 Freq: Status: Active Protocol: Document 04/01/24 09:47 NM (Rec: 04/01/24 11:19 NM [id number]) Manual Assessments Joint Mobility Assessment Joint Mobility Assessment Limitations with passive R knee flex, full ext PROM; mild limitations AROM in supine; hyperextension in stance. Decreased R ankle dorsiflexion and plantarflexion mobility Decreased R scapular mobility and glenohumeral translation PT-OP-G Mobility & Gait Start: 03/31/24 11:47 Freq: Status: Active Protocol: Document 04/01/24 09:47 NM (Rec: 04/01/24 11:19 NM [id number]) OP Mobility Evaluation Bed Mobility Rolling unable to roll R rolls to L side with block motion with L sided assist to side Supine to and from Sit to L side, using LUE to stabilize, needs min A at trunk to stabilize Transfers Sit to Stand needs 1 UE to assist with stand and scooting to edge of wheelchair, demos hyperextension of R knee once in stance. Strong tendency to shift toward L side, use LLE to rise, RLE further from sit Bed to Chair Transfers partial step pivot IND to L side from wheel chair to EOM Wheelchair Management Type of Wheelchair manual Special Equipment cushion air Assessment Details using LLE to propel OP Gait Assessment Gait Gait Assistance Required: Maximum Assistance,1 Person Assist Assistive Devices Assistive Device Gait Belt,Eros Walker Gait Deviations General Gait Pattern Antalgic,Flexed Trunk Comments Gait Comments Pt able to lift ea LE individually in place but unable to actually advance RLE , limited in part by inability to coordinate R hip/knee flexion in standing position and poor R foot clearance. Needs PT to block R knee to prevent buckling in R stance while minimally advancing LLE using hemiwalker on L side. Heavily dependent on LUE for support when attempting to lift RLE from floor. PT-OP-H Neuro Start: 03/31/24 11:47 Freq: Status: Active Protocol: Document 04/01/24 09:47 NM (Rec: 04/01/24 11:19 NM [id number]) Coordination Evaluation Upper Extremity Tests Right Finger to Nose Test Activity Impossible Finger to Therapist's Finger Test Activity Impossible Pronation/Supination Test Activity Impossible Left Finger to Nose Test Severe Impairment Finger to Therapist's Finger Test Moderate Impairment Pronation/Supination Test Severe Impairment Lower Extremity Tests Right Alternate Heel to Knee; Heel to Toe Test Severe Impairment Heel on Taylor Test Severe Impairment Foot Tapping Test Severe Impairment Left Alternate Heel to Knee; Heel to Toe Test Severe Impairment Heel on Taylor Test Moderate Impairment Foot Tapping Test Minimal Impairment Muscle Tone Tone Assessment Right Lower Extremity Extensor Tone Description Mild Hypertonicity Muscle Tone Comments More tone is present at R foot with supination/ plantarflexion than at hip/ knee Right Upper Extremity Flexor Tone Description Severe Hypertonicity PT-OP-J Posture/Palpation/Skin Start: 03/31/24 11:47 Freq: Status: Active Protocol: Document 04/01/24 09:47 NM (Rec: 04/01/24 16:02 NM [id number]) Posture Evaluation Comments Posture Comments In wheelchair, pt presents with forward head posture, rounded shoulder and slight kyphotic posture. Her RUE is abducted with elbow flexion, forearm supination, wrist extension, and finger flexion with thumb tucked inside her fingers. Her BLE are at 90/90 position at hip/knee at floor with slight supination/ plantarflexion in R foot PT-OP-K Range of Motion Start: 03/31/24 11:47 Freq: Status: Active Protocol: Document 04/01/24 09:47 NM (Rec: 04/01/24 15:56 NM [id number]) Shoulder Goniometric Range of Motion Shoulder ROM Limitations Comments Defer to OT for UE ADLs at this time Knee Goniometric Range of Motion Knee Right Flexion Active (degrees) 115 Extension Active (degrees) 5 Left Flexion Active (degrees) 130 Extension Active (degrees) 3 Ankle and Foot Goniometric Range of Motion Ankle and Foot Right Plantarflexion 20 Comments lacking 10 deg from neutral dorsiflexion Left Dorsiflexion with Knee Extended 3 Plantarflexion 30 PT-OP-M Strength Start: 03/31/24 11:47 Freq: Status: Active Protocol: Document 04/01/24 09:47 NM (Rec: 04/01/24 11:19 NM [id number]) Shoulder Strength Shoulder Manual Muscle Testing Left Flexion 3+ Fair+ Abduction (C5) 3+ Fair+ Internal Rotation 4- Good- Horizontal Abduction 4- Good- Comments bicep 4/5 Hip Strength Hip Manual Muscle Testing Right Flexion (L2) 3+ Fair+ Extension (S1) 2+ Poor+ Abduction 3 Fair Adduction 2+ Poor+ Left Flexion (L2) 4- Good- Extension (S1) 3+ Fair+ Abduction 4- Good- Adduction 4- Good- Comments tendency to move into hip ER with hip flexion Knee Strength Knee Manual Muscle Testing Right Flexion (S2) 3 Fair Extension (L3) 3+ Fair+ Left Flexion (S2) 4- Good- Extension (L3) 3+ Fair+ Ankle/Foot Strength Ankle and Foot Manual Muscle Testing Right Dorsiflexion (L4) 2+ Poor+ Plantarflexion (S1) 3 Fair Comments tested in sitting Left Dorsiflexion (L4) 3 Fair Plantarflexion (S1) 3 Fair Comments tested in sitting PT-OP-Q Treatments Start: 03/31/24 11:47 Freq: Status: Active Protocol: Document 04/21/24 11:35 SP (Rec: 04/21/24 12:36 SP [id number]) Gym Equipment Shuttle Recovery Unilateral Squats Details cued slower pacing Resistance R 37# 1 navy, L 50# 2 navy Reps/Time 10 reps, 5 reps Bilateral Squats Details cues full flexion to block approx 90 deg knee bend Resistance 62# 2 navy bands Reps/Time 15 reps Therapeutic Exercises Sitting Exercises LAQ Sitting Exercise Name added to HEP /c HO Side right Resistance AROM- target TOPOGRAPHY TECHNICIAN hand (bottom chair nearby self) Reps/Minutes 8, 5 reps Comments cued TKE Hip Abduction Sitting Exercise Name Hip Abduction Side bilateral Resistance Lv 2 Equipment Used therapist held Reps/Minutes x10 Hamstring Curls Sitting Exercise Name Hamstring Curls Side right Resistance Lv 2 Reps/Minutes 10 therapist anchored Therapeutic Activity Therapeutic Activity w/c walking Name RLE w/c mobility Comments knee ext advancement, knee flexion, cued slower pacing allow RLE ROM functional mobility transfers Name stand step pivot transfer /c HW Reps/Minutes 6 rep s Comments w/c<>large chair Cues scoot fwd, push from chair stand fully, HW and each LE patterning, reach back slow sit. Gait Training Gait Activity Hemiwalker Device Used Hemiwalker Level of Assistance CGA, Min A Distance/Duration 12' w/c<> large chair, 1 lap Comments cues for sequencing HW, Rft, Lft, tall posture, TKE RLE, allow R arm rest more into ext // Bars Description fwd,& bwd Device Used // bars L HR, HW inLUE Level of Assistance CGA Distance/Duration // bars 10' x2 PT-OP-T Assessment and Plan Start: 03/31/24 11:47 Freq: Status: Active Protocol: Document 04/21/24 11:35 SP (Rec: 04/21/24 12:36 SP [id number]) Physical Therapy Assessment Goals Four Impairment standing balance impaired Prison Goal (LTG) Pt will be able to stand with equal WB using AD with SPV or better for at least 2 minutes in initiation for future standing ADLs or gait training , if appropriate LTG Duration 12 weeks Three Impairment impaired RLE strength for transfers Prison Goal (LTG) Pt will be able to perform sit to stand transfer to AD with SPV or better LTG Duration 12 weeks Two Impairment bed mobility and chair transfers impaired Short Term Goal (STG) Pt will be able to scoot in multiple directions with or without UE assist in order to facilitate more efficient transfers to/from wheel chair and bed mobility STG Duration 8 weeks Prison Goal (LTG) Pt will improve FIST score >40 /56 to demonstrate improved stability and trunk control during transfers LTG Duration 12 weeks One Impairment not performing HEP for carryover with PT sessions Prison Goal (LTG) If appropriate, pt will be IND with HEP in order to maximize progression with PT and maintain progress upon discharge LTG Duration 12 weeks Assessment Summary Assessment Pt improved wt shift and WB into RLE during standing mobility and gait with mod cuing for posture and max cues sequencing HW , RLe then LLE, decreased additional support and improved RLe foot clearance. Added LAQ to HEP and encouraged RLE LAQ and HS curl functional mobiltiy during wc locomotion almost equal LE when focused. Physical Therapy Plan Frequency and Duration Frequency of Treatment 1-2x/wk Duration of treatment (weeks) 12 Plan of Care Start Date 04/01/24 Plan of Care End Date 06/25/24 Therapeutic Interventions Therapeutic Interventions Balance Training,Canalithic Repositioning,Coordination Training,Gait Training,Home Exercise Program,Joint Mobilizations,Manual Therapy, Neuromuscular Re-education, Orthotic/Prosthetic Management ,Patient/Caregiver Education, Self-Care/Home Management, Sensory Integration,Soft Tissue Mobilization,Taping, Therapeutic Activities, Therapeutic Exercises, Vestibular Rehabilitation Modalities Biofeedback,Cold Pack/Ice Massage,Electric Stimulation, Hot Packs,Ultrasound Next Visit Focus/Plan Next Note Type Treatment Note Next Visit Plan Address safety with transfers, scooting, and STS. Education on and fitting for possible AFO, AD for STS if needed seated balance training. RLE strengthening of quad/glute
--- NOTE | 2024-04-23 12:13 | PT.OTN ---
Current Diagnoses Hemiplegia and hemiparesis following cerebral infarction affecting right dominant side (04/23/24) Unilateral primary osteoarthritis, right knee (04/23/24) Primary osteoarthritis, right shoulder (04/23/24) Stiffness of right shoulder, not elsewhere classified (04/23/24) Stiffness of right hip, not elsewhere classified (04/23/24) Stiffness of right knee, not elsewhere classified (04/23/24) Stiffness of right ankle, not elsewhere classified (04/23/24) Other lack of coordination (04/23/24) Weakness (04/23/24) Physical Therapy Treatment Note PT-OP-A Visit Information Start: 03/31/24 11:47 Freq: Status: Active Protocol: Document 04/23/24 11:33 SP (Rec: 04/23/24 12:37 SP [id number]) Out-Patient Physical Therapy Visit Information Visit Information Visit Type Treatment Note Visit Start Time 11:33 Visit Stop Time 12:13 Visit Number 4 Number of PARKING METER COLLECTOR Visits 2 Evaluation Information Evaluation Date 04/01/24 Precautions Precautions Hx CVA with R sided deficits, fall risk Uses: lettering & number HO for communication support. PT-OP-B Current Condition Start: 03/31/24 11:47 Freq: Status: Active Protocol: Document 04/01/24 09:47 NM (Rec: 04/01/24 11:19 NM [id number]) Current Condition History of Current Condition History of Current Condition Pt presents to PT with R sided deficits following a L sided CVA 5 years ago. Pt primarily uses a manual wheelchair for mobility, utilizing BLE to propel (L>R) herself. Pt is largely non-verbal following her stroke, demonstrating expressive aphasia; she utilizes a chart to express her needs and is able to express yes/no to provide history. Pt lives in an assisted living facility and has caregivers at the facility who assist with ADLs; however , she presents to the evaluation alone. Pt reports that she is IND for most dressing ADLs (e.g. don/doff shoes and compression hose) but needs assist for eating. Prior to her CVA, pt was IND with all ADLs and mobility; she did not use any AD. Pt has not ambulated since her stroke 5 years ago. She does not stand except to transfer. Pt is IND with transfers from her chair to the bed, using a stand-step pivot toward her L side. Pt's RUE is flexed at her elbow, then supinated with wrist extension and finger flexion. Pt does report prn R knee, low back, and R shoulder /hand pain. She does not have an AFO. Pt presents to clinic with a spc but reports that she had not used her spc for mobility; did not use prior to CVA. Pt primarily relies on the bus for transportation. Prior Treatments and Tests Pt is concurrently in speech and occupation therapy Treatment Goals Patient/Caregiver Goals Pawel's goal is to ambulate PT-OP-C Subjective Start: 03/31/24 11:47 Freq: Status: Active Protocol: Document 04/23/24 11:33 SP (Rec: 04/23/24 12:37 SP [id number]) OP-PT Subjective Patient Comments Patient Comments Pt non verbal, nods to answer questions and appropriate demonstration to reponses. Utilized letter/number communication HO from EXECUTIVE MANAGER for carryover responses. PT-OP-D Balance Start: 03/31/24 11:47 Freq: Status: Active Protocol: Document 04/01/24 09:47 NM (Rec: 04/01/24 11:19 NM [id number]) OP-PT Balance Assessment Sitting Balance Static Sitting Balance Ability Good Dynamic Sitting Balance Ability Good Sitting Balance Comments Function in Sitting Test (FIST ): Standing Balance Static Standing Balance Ability Poor Dynamic Standing Balance Ability Poor Murray Fall Scale Copyright Permission PT-OP-F Manual Assessment Start: 03/31/24 11:47 Freq: Status: Active Protocol: Document 04/01/24 09:47 NM (Rec: 04/01/24 11:19 NM [id number]) Manual Assessments Joint Mobility Assessment Joint Mobility Assessment Limitations with passive R knee flex, full ext PROM; mild limitations AROM in supine; hyperextension in stance. Decreased R ankle dorsiflexion and plantarflexion mobility Decreased R scapular mobility and glenohumeral translation PT-OP-G Mobility & Gait Start: 03/31/24 11:47 Freq: Status: Active Protocol: Document 04/01/24 09:47 NM (Rec: 04/01/24 11:19 NM [id number]) OP Mobility Evaluation Bed Mobility Rolling unable to roll R rolls to L side with block motion with L sided assist to side Supine to and from Sit to L side, using LUE to stabilize, needs min A at trunk to stabilize Transfers Sit to Stand needs 1 UE to assist with stand and scooting to edge of wheelchair, demos hyperextension of R knee once in stance. Strong tendency to shift toward L side, use LLE to rise, RLE further from sit Bed to Chair Transfers partial step pivot IND to L side from wheel chair to EOM Wheelchair Management Type of Wheelchair manual Special Equipment cushion air Assessment Details using LLE to propel OP Gait Assessment Gait Gait Assistance Required: Maximum Assistance,1 Person Assist Assistive Devices Assistive Device Gait Belt,Eros Walker Gait Deviations General Gait Pattern Antalgic,Flexed Trunk Comments Gait Comments Pt able to lift ea LE individually in place but unable to actually advance RLE , limited in part by inability to coordinate R hip/knee flexion in standing position and poor R foot clearance. Needs PT to block R knee to prevent buckling in R stance while minimally advancing LLE using hemiwalker on L side. Heavily dependent on LUE for support when attempting to lift RLE from floor. PT-OP-H Neuro Start: 03/31/24 11:47 Freq: Status: Active Protocol: Document 04/01/24 09:47 NM (Rec: 04/01/24 11:19 NM [id number]) Coordination Evaluation Upper Extremity Tests Right Finger to Nose Test Activity Impossible Finger to Therapist's Finger Test Activity Impossible Pronation/Supination Test Activity Impossible Left Finger to Nose Test Severe Impairment Finger to Therapist's Finger Test Moderate Impairment Pronation/Supination Test Severe Impairment Lower Extremity Tests Right Alternate Heel to Knee; Heel to Toe Test Severe Impairment Heel on Taylor Test Severe Impairment Foot Tapping Test Severe Impairment Left Alternate Heel to Knee; Heel to Toe Test Severe Impairment Heel on Taylor Test Moderate Impairment Foot Tapping Test Minimal Impairment Muscle Tone Tone Assessment Right Lower Extremity Extensor Tone Description Mild Hypertonicity Muscle Tone Comments More tone is present at R foot with supination/ plantarflexion than at hip/ knee Right Upper Extremity Flexor Tone Description Severe Hypertonicity PT-OP-J Posture/Palpation/Skin Start: 03/31/24 11:47 Freq: Status: Active Protocol: Document 04/01/24 09:47 NM (Rec: 04/01/24 16:02 NM [id number]) Posture Evaluation Comments Posture Comments In wheelchair, pt presents with forward head posture, rounded shoulder and slight kyphotic posture. Her RUE is abducted with elbow flexion, forearm supination, wrist extension, and finger flexion with thumb tucked inside her fingers. Her BLE are at 90/90 position at hip/knee at floor with slight supination/ plantarflexion in R foot PT-OP-K Range of Motion Start: 03/31/24 11:47 Freq: Status: Active Protocol: Document 04/01/24 09:47 NM (Rec: 04/01/24 15:56 NM [id number]) Shoulder Goniometric Range of Motion Shoulder ROM Limitations Comments Defer to OT for UE ADLs at this time Knee Goniometric Range of Motion Knee Right Flexion Active (degrees) 115 Extension Active (degrees) 5 Left Flexion Active (degrees) 130 Extension Active (degrees) 3 Ankle and Foot Goniometric Range of Motion Ankle and Foot Right Plantarflexion 20 Comments lacking 10 deg from neutral dorsiflexion Left Dorsiflexion with Knee Extended 3 Plantarflexion 30 PT-OP-M Strength Start: 03/31/24 11:47 Freq: Status: Active Protocol: Document 04/01/24 09:47 NM (Rec: 04/01/24 11:19 NM [id number]) Shoulder Strength Shoulder Manual Muscle Testing Left Flexion 3+ Fair+ Abduction (C5) 3+ Fair+ Internal Rotation 4- Good- Horizontal Abduction 4- Good- Comments bicep 4/5 Hip Strength Hip Manual Muscle Testing Right Flexion (L2) 3+ Fair+ Extension (S1) 2+ Poor+ Abduction 3 Fair Adduction 2+ Poor+ Left Flexion (L2) 4- Good- Extension (S1) 3+ Fair+ Abduction 4- Good- Adduction 4- Good- Comments tendency to move into hip ER with hip flexion Knee Strength Knee Manual Muscle Testing Right Flexion (S2) 3 Fair Extension (L3) 3+ Fair+ Left Flexion (S2) 4- Good- Extension (L3) 3+ Fair+ Ankle/Foot Strength Ankle and Foot Manual Muscle Testing Right Dorsiflexion (L4) 2+ Poor+ Plantarflexion (S1) 3 Fair Comments tested in sitting Left Dorsiflexion (L4) 3 Fair Plantarflexion (S1) 3 Fair Comments tested in sitting PT-OP-Q Treatments Start: 03/31/24 11:47 Freq: Status: Active Protocol: Document 04/23/24 11:33 SP (Rec: 04/23/24 12:37 SP [id number]) Cardio Equipment Recumbent Stepper (Sci-Fit) Duration (Minutes) 6 Resistance 2 Seat Position 10 Other Mod cues BIG steps, 30s RPMs Therapeutic Exercises Sitting Exercises LAQ Sitting Exercise Name reviewed with wts today 04/23 Side right Resistance leg wt: R 2#, L 5# Reps/Minutes 20 then 10 reps alternating- kick to PARKING METER COLLECTOR hand target for TKE Comments cued bring foot back to start position, full range Standing Exercises side stepping Side bilateral Equipment Used LUE //bar Reps/Minutes 10 ft x1 lap Comments cued RLE clearance, R ft fwd ( decrease R hip ER) Marching Side bilateral Resistance AROM Equipment Used facing //bars, LUE contact Reps/Minutes 20 reps alternating Comments cued tall posture, RLE TKE Therapeutic Activity Therapeutic Activity squat pivot transfers Name 45 deg angle Reps/Minutes many reps throughout tx Comments Cues scoot to EO chair, LUE reach across to opp chair arm, wt shift fwd to standing, marching stepping during pivot and back up fully, feel chair behind knees, slow controlled descend sit transfers Name stand step pivot transfer /c HW Reps/Minutes 4 reps Comments w/c<>large chair Cues scoot fwd, push from chair arm to full stand, HW and each LE patterning HW/Rft/ Lft, back up fully, feel chair behind knees, reach back LUE slow sit. CG- Lambert- for trunk stab, during pivot, cued RLE march step foot clearance during the pivot. Gait Training Gait Activity Hemiwalker Device Used Hemiwalker Level of Assistance CGA, Min A Distance/Duration 12' w/c<> large chair, 1 lap Comments cues for sequencing HW, Rft, Lft, tall posture, TKE RLE, allow R arm rest more into ext PT-OP-T Assessment and Plan Start: 03/31/24 11:47 Freq: Status: Active Protocol: Document 04/23/24 11:33 SP (Rec: 04/23/24 12:37 SP [id number]) Physical Therapy Assessment Goals Four Impairment standing balance impaired Motion Designer Goal (LTG) Pt will be able to stand with equal WB using AD with SPV or better for at least 2 minutes in initiation for future standing ADLs or gait training , if appropriate LTG Duration 12 weeks Three Impairment impaired RLE strength for transfers Custodial Goal (LTG) Pt will be able to perform sit to stand transfer to AD with SPV or better LTG Duration 12 weeks Two Impairment bed mobility and chair transfers impaired Short Term Goal (STG) Pt will be able to scoot in multiple directions with or without UE assist in order to facilitate more efficient transfers to/from wheel chair and bed mobility STG Duration 8 weeks Motion Designer Goal (LTG) Pt will improve FIST score >40 /56 to demonstrate improved stability and trunk control during transfers LTG Duration 12 weeks One Impairment not performing HEP for carryover with PT sessions Motion Designer Goal (LTG) If appropriate, pt will be IND with HEP in order to maximize progression with PT and maintain progress upon discharge LTG Duration 12 weeks Assessment Summary Assessment Pt improved wt shift squat pivot reach across opp chair arm and pivot, cues for marching BLE improves foot clearance. Barbaar nods head when ask if home by herself, utilizes squat pivot transfer. Continue progression stand step pivot /c HW today, CG- Min A with cuing for HW positioning, 3 pt gait Max cuing, tall posture and stability. Improved able to increase resistance to seated LAQ today and standing marching //bars CGA, cued TKE on RLE during LLE lift. No buckling. Cued RLE // to LLE during side stepping in //bars . CG-Min A during gait/c HW, max cues sequencing 3pt gait. Physical Therapy Plan Frequency and Duration Frequency of Treatment 1-2x/wk Duration of treatment (weeks) 12 Plan of Care Start Date 04/01/24 Plan of Care End Date 06/25/24 Therapeutic Interventions Therapeutic Interventions Balance Training,Canalithic Repositioning,Coordination Training,Gait Training,Home Exercise Program,Joint Mobilizations,Manual Therapy, Neuromuscular Re-education, Orthotic/Prosthetic Management ,Patient/Caregiver Education, Self-Care/Home Management, Sensory Integration,Soft Tissue Mobilization,Taping, Therapeutic Activities, Therapeutic Exercises, Vestibular Rehabilitation Modalities Biofeedback,Cold Pack/Ice Massage,Electric Stimulation, Hot Packs,Ultrasound Next Visit Focus/Plan Next Note Type Treatment Note Next Visit Plan Continue performance and eduation safety with directioning squat pivot transfers, scooting, and STS. Next tx: Education on and fitting for possible RLE AFO, AD for STS if needed seated balance training. RLE strengthening of quad/glute
--- NOTE | 2024-04-27 16:06 | PT.OTN ---
Current Diagnoses Hemiplegia and hemiparesis following cerebral infarction affecting right dominant side (04/27/24) Unilateral primary osteoarthritis, right knee (04/27/24) Primary osteoarthritis, right shoulder (04/27/24) Stiffness of right shoulder, not elsewhere classified (04/27/24) Stiffness of right hip, not elsewhere classified (04/27/24) Stiffness of right knee, not elsewhere classified (04/27/24) Stiffness of right ankle, not elsewhere classified (04/27/24) Other lack of coordination (04/27/24) Weakness (04/27/24) Physical Therapy Treatment Note PT-OP-A Visit Information Start: 03/31/24 11:47 Freq: Status: Active Protocol: Document 04/27/24 15:15 DCW (Rec: 04/27/24 16:06 DCW [id number]) Out-Patient Physical Therapy Visit Information Visit Information Visit Type Treatment Note Visit Start Time 15:15 Visit Stop Time 16:00 Visit Number 5 Number of RES COUNSELOR Visits 0 Evaluation Information Evaluation Date 04/01/24 Precautions Precautions Hx CVA with R sided deficits, fall risk Uses: lettering & number HO for communication support. PT-OP-B Current Condition Start: 03/31/24 11:47 Freq: Status: Active Protocol: Document 04/01/24 09:47 NM (Rec: 04/01/24 11:19 NM [id number]) Current Condition History of Current Condition History of Current Condition Pt presents to PT with R sided deficits following a L sided CVA 5 years ago. Pt primarily uses a manual wheelchair for mobility, utilizing BLE to propel (L>R) herself. Pt is largely non-verbal following her stroke, demonstrating expressive aphasia; she utilizes a chart to express her needs and is able to express yes/no to provide history. Pt lives in an assisted living facility and has caregivers at the facility who assist with ADLs; however , she presents to the evaluation alone. Pt reports that she is IND for most dressing ADLs (e.g. don/doff shoes and compression hose) but needs assist for eating. Prior to her CVA, pt was IND with all ADLs and mobility; she did not use any AD. Pt has not ambulated since her stroke 5 years ago. She does not stand except to transfer. Pt is IND with transfers from her chair to the bed, using a stand-step pivot toward her L side. Pt's RUE is flexed at her elbow, then supinated with wrist extension and finger flexion. Pt does report prn R knee, low back, and R shoulder /hand pain. She does not have an AFO. Pt presents to clinic with a spc but reports that she had not used her spc for mobility; did not use prior to CVA. Pt primarily relies on the bus for transportation. Prior Treatments and Tests Pt is concurrently in speech and occupation therapy Treatment Goals Patient/Caregiver Goals Pawel's goal is to ambulate PT-OP-C Subjective Start: 03/31/24 11:47 Freq: Status: Active Protocol: Document 04/27/24 15:15 DCW (Rec: 04/27/24 16:06 DCW [id number]) OP-PT Subjective Patient Comments Patient Comments Pt once again indicates she is most interested in getting to walk more. PT-OP-D Balance Start: 03/31/24 11:47 Freq: Status: Active Protocol: Document 04/01/24 09:47 NM (Rec: 04/01/24 11:19 NM [id number]) OP-PT Balance Assessment Sitting Balance Static Sitting Balance Ability Good Dynamic Sitting Balance Ability Good Sitting Balance Comments Function in Sitting Test (FIST ): Standing Balance Static Standing Balance Ability Poor Dynamic Standing Balance Ability Poor Murray Fall Scale Copyright Permission PT-OP-F Manual Assessment Start: 03/31/24 11:47 Freq: Status: Active Protocol: Document 04/01/24 09:47 NM (Rec: 04/01/24 11:19 NM [id number]) Manual Assessments Joint Mobility Assessment Joint Mobility Assessment Limitations with passive R knee flex, full ext PROM; mild limitations AROM in supine; hyperextension in stance. Decreased R ankle dorsiflexion and plantarflexion mobility Decreased R scapular mobility and glenohumeral translation PT-OP-G Mobility & Gait Start: 03/31/24 11:47 Freq: Status: Active Protocol: Document 04/01/24 09:47 NM (Rec: 04/01/24 11:19 NM [id number]) OP Mobility Evaluation Bed Mobility Rolling unable to roll R rolls to L side with block motion with L sided assist to side Supine to and from Sit to L side, using LUE to stabilize, needs min A at trunk to stabilize Transfers Sit to Stand needs 1 UE to assist with stand and scooting to edge of wheelchair, demos hyperextension of R knee once in stance. Strong tendency to shift toward L side, use LLE to rise, RLE further from sit Bed to Chair Transfers partial step pivot IND to L side from wheel chair to EOM Wheelchair Management Type of Wheelchair manual Special Equipment cushion air Assessment Details using LLE to propel OP Gait Assessment Gait Gait Assistance Required: Maximum Assistance,1 Person Assist Assistive Devices Assistive Device Gait Belt,Eros Walker Gait Deviations General Gait Pattern Antalgic,Flexed Trunk Comments Gait Comments Pt able to lift ea LE individually in place but unable to actually advance RLE , limited in part by inability to coordinate R hip/knee flexion in standing position and poor R foot clearance. Needs PT to block R knee to prevent buckling in R stance while minimally advancing LLE using hemiwalker on L side. Heavily dependent on LUE for support when attempting to lift RLE from floor. PT-OP-H Neuro Start: 03/31/24 11:47 Freq: Status: Active Protocol: Document 04/01/24 09:47 NM (Rec: 04/01/24 11:19 NM [id number]) Coordination Evaluation Upper Extremity Tests Right Finger to Nose Test Activity Impossible Finger to Therapist's Finger Test Activity Impossible Pronation/Supination Test Activity Impossible Left Finger to Nose Test Severe Impairment Finger to Therapist's Finger Test Moderate Impairment Pronation/Supination Test Severe Impairment Lower Extremity Tests Right Alternate Heel to Knee; Heel to Toe Test Severe Impairment Heel on Taylor Test Severe Impairment Foot Tapping Test Severe Impairment Left Alternate Heel to Knee; Heel to Toe Test Severe Impairment Heel on Taylor Test Moderate Impairment Foot Tapping Test Minimal Impairment Muscle Tone Tone Assessment Right Lower Extremity Extensor Tone Description Mild Hypertonicity Muscle Tone Comments More tone is present at R foot with supination/ plantarflexion than at hip/ knee Right Upper Extremity Flexor Tone Description Severe Hypertonicity PT-OP-J Posture/Palpation/Skin Start: 03/31/24 11:47 Freq: Status: Active Protocol: Document 04/01/24 09:47 NM (Rec: 04/01/24 16:02 NM [id number]) Posture Evaluation Comments Posture Comments In wheelchair, pt presents with forward head posture, rounded shoulder and slight kyphotic posture. Her RUE is abducted with elbow flexion, forearm supination, wrist extension, and finger flexion with thumb tucked inside her fingers. Her BLE are at 90/90 position at hip/knee at floor with slight supination/ plantarflexion in R foot PT-OP-K Range of Motion Start: 03/31/24 11:47 Freq: Status: Active Protocol: Document 04/01/24 09:47 NM (Rec: 04/01/24 15:56 NM [id number]) Shoulder Goniometric Range of Motion Shoulder ROM Limitations Comments Defer to OT for UE ADLs at this time Knee Goniometric Range of Motion Knee Right Flexion Active (degrees) 115 Extension Active (degrees) 5 Left Flexion Active (degrees) 130 Extension Active (degrees) 3 Ankle and Foot Goniometric Range of Motion Ankle and Foot Right Plantarflexion 20 Comments lacking 10 deg from neutral dorsiflexion Left Dorsiflexion with Knee Extended 3 Plantarflexion 30 PT-OP-M Strength Start: 03/31/24 11:47 Freq: Status: Active Protocol: Document 04/01/24 09:47 NM (Rec: 04/01/24 11:19 NM [id number]) Shoulder Strength Shoulder Manual Muscle Testing Left Flexion 3+ Fair+ Abduction (C5) 3+ Fair+ Internal Rotation 4- Good- Horizontal Abduction 4- Good- Comments bicep 4/5 Hip Strength Hip Manual Muscle Testing Right Flexion (L2) 3+ Fair+ Extension (S1) 2+ Poor+ Abduction 3 Fair Adduction 2+ Poor+ Left Flexion (L2) 4- Good- Extension (S1) 3+ Fair+ Abduction 4- Good- Adduction 4- Good- Comments tendency to move into hip ER with hip flexion Knee Strength Knee Manual Muscle Testing Right Flexion (S2) 3 Fair Extension (L3) 3+ Fair+ Left Flexion (S2) 4- Good- Extension (L3) 3+ Fair+ Ankle/Foot Strength Ankle and Foot Manual Muscle Testing Right Dorsiflexion (L4) 2+ Poor+ Plantarflexion (S1) 3 Fair Comments tested in sitting Left Dorsiflexion (L4) 3 Fair Plantarflexion (S1) 3 Fair Comments tested in sitting PT-OP-Q Treatments Start: 03/31/24 11:47 Freq: Status: Active Protocol: Document 04/27/24 15:15 DCW (Rec: 04/27/24 16:06 DCW [id number]) Cardio Equipment Recumbent Stepper (Sci-Fit) Duration (Minutes) 6 Resistance 3 Seat Position 11 Other Mod cues BIG steps, 30s RPMs Gym Equipment Shuttle Recovery Bilateral Heel Raises Resistance 37# Reps/Time x20 Unilateral Squats Details cued slower pacing Resistance R 37# Reps/Time 10 reps, 5 reps Bilateral Squats Resistance 75# (three navy) Reps/Time x15 Therapeutic Exercises Sitting Exercises Marching Sitting Exercise Name Marching Side bilateral Resistance 5# LAQ Side bilateral Resistance 5# Reps/Minutes x20- kick to PT hand target for TKE Comments cued bring foot back to start position, full range Hip Abduction Sitting Exercise Name Hip Abduction Side bilateral Resistance Lv 2 Equipment Used therapist held Reps/Minutes x10 Gait Training Gait Activity Quad Cane Description Quad Cane Ambulation Device Used SBQC Level of Assistance CGA Surface Floor Distance/Duration 30' Comments VCs for sequencing // Bars Description fwd,& bkwd Device Used // bars L HR, HW inLUE Level of Assistance CGA Distance/Duration // bars 10' x4 PT-OP-T Assessment and Plan Start: 03/31/24 11:47 Freq: Status: Active Protocol: Document 04/27/24 15:15 DCW (Rec: 04/27/24 16:06 DCW [id number]) Physical Therapy Assessment Impairments Impairments Activity Tolerance,Balance, Coordination,Edema,Functional Activities,Functional Mobility ,Gait,Integument,Pain,Posture, ROM,Sensation,Soft Tissue Mobility,Strength,Tone, Transfers,Vestibular,Visual Motor Goals Four Impairment standing balance impaired [facility] Goal (LTG) Pt will be able to stand with equal WB using AD with SPV or better for at least 2 minutes in initiation for future standing ADLs or gait training , if appropriate LTG Duration 12 weeks Three Impairment impaired RLE strength for transfers Practice Business Asst Goal (LTG) Pt will be able to perform sit to stand transfer to AD with SPV or better LTG Duration 12 weeks Two Impairment bed mobility and chair transfers impaired Short Term Goal (STG) Pt will be able to scoot in multiple directions with or without UE assist in order to facilitate more efficient transfers to/from wheel chair and bed mobility STG Duration 8 weeks [facility] Goal (LTG) Pt will improve FIST score >40 /56 to demonstrate improved stability and trunk control during transfers LTG Duration 12 weeks One Impairment not performing HEP for carryover with PT sessions [facility] Goal (LTG) If appropriate, pt will be IND with HEP in order to maximize progression with PT and maintain progress upon discharge LTG Duration 12 weeks Assessment Summary Assessment Pt continues to progress fairly well with ambulation, spent time today using a quad cane, pt had occasional unsteadiness due to infrequent sequencing mistakes, responded well to verbal cues. Physical Therapy Plan Frequency and Duration Frequency of Treatment 1-2x/wk Duration of treatment (weeks) 12 Plan of Care Start Date 04/01/24 Plan of Care End Date 06/25/24 Therapeutic Interventions Therapeutic Interventions Balance Training,Canalithic Repositioning,Coordination Training,Gait Training,Home Exercise Program,Joint Mobilizations,Manual Therapy, Neuromuscular Re-education, Orthotic/Prosthetic Management ,Patient/Caregiver Education, Self-Care/Home Management, Sensory Integration,Soft Tissue Mobilization,Taping, Therapeutic Activities, Therapeutic Exercises, Vestibular Rehabilitation Modalities Biofeedback,Cold Pack/Ice Massage,Electric Stimulation, Hot Packs,Ultrasound Next Visit Focus/Plan Next Note Type Treatment Note Next Visit Plan Continue performance and eduation safety with directioning squat pivot transfers, scooting, and STS. Next tx: Education on and fitting for possible RLE AFO, AD for STS if needed seated balance training. RLE strengthening of quad/glute
--- NOTE | 2024-04-30 15:14 | PT.OTN ---
Current Diagnoses Hemiplegia and hemiparesis following cerebral infarction affecting right dominant side (04/30/24) Unilateral primary osteoarthritis, right knee (04/30/24) Primary osteoarthritis, right shoulder (04/30/24) Stiffness of right shoulder, not elsewhere classified (04/30/24) Stiffness of right hip, not elsewhere classified (04/30/24) Stiffness of right knee, not elsewhere classified (04/30/24) Stiffness of right ankle, not elsewhere classified (04/30/24) Other lack of coordination (04/30/24) Weakness (04/30/24) Physical Therapy Treatment Note PT-OP-A Visit Information Start: 03/31/24 11:47 Freq: Status: Active Protocol: Document 04/30/24 14:31 SP (Rec: 04/30/24 15:36 SP [id number]) Out-Patient Physical Therapy Visit Information Visit Information Visit Type Treatment Note Visit Start Time 14:31 Visit Stop Time 15:14 Visit Number 6 Number of INSURANCE BROKER Visits 1 Evaluation Information Evaluation Date 04/01/24 Precautions Precautions Hx CVA with R sided deficits, fall risk Uses: lettering & number HO for communication support. PT-OP-B Current Condition Start: 03/31/24 11:47 Freq: Status: Active Protocol: Document 04/01/24 09:47 NM (Rec: 04/01/24 11:19 NM [id number]) Current Condition History of Current Condition History of Current Condition Pt presents to PT with R sided deficits following a L sided CVA 5 years ago. Pt primarily uses a manual wheelchair for mobility, utilizing BLE to propel (L>R) herself. Pt is largely non-verbal following her stroke, demonstrating expressive aphasia; she utilizes a chart to express her needs and is able to express yes/no to provide history. Pt lives in an assisted living facility and has caregivers at the facility who assist with ADLs; however , she presents to the evaluation alone. Pt reports that she is IND for most dressing ADLs (e.g. don/doff shoes and compression hose) but needs assist for eating. Prior to her CVA, pt was IND with all ADLs and mobility; she did not use any AD. Pt has not ambulated since her stroke 5 years ago. She does not stand except to transfer. Pt is IND with transfers from her chair to the bed, using a stand-step pivot toward her L side. Pt's RUE is flexed at her elbow, then supinated with wrist extension and finger flexion. Pt does report prn R knee, low back, and R shoulder /hand pain. She does not have an AFO. Pt presents to clinic with a spc but reports that she had not used her spc for mobility; did not use prior to CVA. Pt primarily relies on the bus for transportation. Prior Treatments and Tests Pt is concurrently in speech and occupation therapy Treatment Goals Patient/Caregiver Goals Pawel's goal is to ambulate PT-OP-C Subjective Start: 03/31/24 11:47 Freq: Status: Active Protocol: Document 04/30/24 14:31 SP (Rec: 04/30/24 15:36 SP [id number]) OP-PT Subjective Patient Comments Patient Comments Pt reports PT-OP-D Balance Start: 03/31/24 11:47 Freq: Status: Active Protocol: Document 04/01/24 09:47 NM (Rec: 04/01/24 11:19 NM [id number]) OP-PT Balance Assessment Sitting Balance Static Sitting Balance Ability Good Dynamic Sitting Balance Ability Good Sitting Balance Comments Function in Sitting Test (FIST ): Standing Balance Static Standing Balance Ability Poor Dynamic Standing Balance Ability Poor Murray Fall Scale Copyright Permission PT-OP-F Manual Assessment Start: 03/31/24 11:47 Freq: Status: Active Protocol: Document 04/01/24 09:47 NM (Rec: 04/01/24 11:19 NM [id number]) Manual Assessments Joint Mobility Assessment Joint Mobility Assessment Limitations with passive R knee flex, full ext PROM; mild limitations AROM in supine; hyperextension in stance. Decreased R ankle dorsiflexion and plantarflexion mobility Decreased R scapular mobility and glenohumeral translation PT-OP-G Mobility & Gait Start: 03/31/24 11:47 Freq: Status: Active Protocol: Document 04/01/24 09:47 NM (Rec: 04/01/24 11:19 NM [id number]) OP Mobility Evaluation Bed Mobility Rolling unable to roll R rolls to L side with block motion with L sided assist to side Supine to and from Sit to L side, using LUE to stabilize, needs min A at trunk to stabilize Transfers Sit to Stand needs 1 UE to assist with stand and scooting to edge of wheelchair, demos hyperextension of R knee once in stance. Strong tendency to shift toward L side, use LLE to rise, RLE further from sit Bed to Chair Transfers partial step pivot IND to L side from wheel chair to EOM Wheelchair Management Type of Wheelchair manual Special Equipment cushion air Assessment Details using LLE to propel OP Gait Assessment Gait Gait Assistance Required: Maximum Assistance,1 Person Assist Assistive Devices Assistive Device Gait Belt,Eros Walker Gait Deviations General Gait Pattern Antalgic,Flexed Trunk Comments Gait Comments Pt able to lift ea LE individually in place but unable to actually advance RLE , limited in part by inability to coordinate R hip/knee flexion in standing position and poor R foot clearance. Needs PT to block R knee to prevent buckling in R stance while minimally advancing LLE using hemiwalker on L side. Heavily dependent on LUE for support when attempting to lift RLE from floor. PT-OP-H Neuro Start: 03/31/24 11:47 Freq: Status: Active Protocol: Document 04/01/24 09:47 NM (Rec: 04/01/24 11:19 NM [id number]) Coordination Evaluation Upper Extremity Tests Right Finger to Nose Test Activity Impossible Finger to Therapist's Finger Test Activity Impossible Pronation/Supination Test Activity Impossible Left Finger to Nose Test Severe Impairment Finger to Therapist's Finger Test Moderate Impairment Pronation/Supination Test Severe Impairment Lower Extremity Tests Right Alternate Heel to Knee; Heel to Toe Test Severe Impairment Heel on Taylor Test Severe Impairment Foot Tapping Test Severe Impairment Left Alternate Heel to Knee; Heel to Toe Test Severe Impairment Heel on Taylor Test Moderate Impairment Foot Tapping Test Minimal Impairment Muscle Tone Tone Assessment Right Lower Extremity Extensor Tone Description Mild Hypertonicity Muscle Tone Comments More tone is present at R foot with supination/ plantarflexion than at hip/ knee Right Upper Extremity Flexor Tone Description Severe Hypertonicity PT-OP-J Posture/Palpation/Skin Start: 03/31/24 11:47 Freq: Status: Active Protocol: Document 04/01/24 09:47 NM (Rec: 04/01/24 16:02 NM [id number]) Posture Evaluation Comments Posture Comments In wheelchair, pt presents with forward head posture, rounded shoulder and slight kyphotic posture. Her RUE is abducted with elbow flexion, forearm supination, wrist extension, and finger flexion with thumb tucked inside her fingers. Her BLE are at 90/90 position at hip/knee at floor with slight supination/ plantarflexion in R foot PT-OP-K Range of Motion Start: 03/31/24 11:47 Freq: Status: Active Protocol: Document 04/01/24 09:47 NM (Rec: 04/01/24 15:56 NM [id number]) Shoulder Goniometric Range of Motion Shoulder ROM Limitations Comments Defer to OT for UE ADLs at this time Knee Goniometric Range of Motion Knee Right Flexion Active (degrees) 115 Extension Active (degrees) 5 Left Flexion Active (degrees) 130 Extension Active (degrees) 3 Ankle and Foot Goniometric Range of Motion Ankle and Foot Right Plantarflexion 20 Comments lacking 10 deg from neutral dorsiflexion Left Dorsiflexion with Knee Extended 3 Plantarflexion 30 PT-OP-M Strength Start: 03/31/24 11:47 Freq: Status: Active Protocol: Document 04/01/24 09:47 NM (Rec: 04/01/24 11:19 NM [id number]) Shoulder Strength Shoulder Manual Muscle Testing Left Flexion 3+ Fair+ Abduction (C5) 3+ Fair+ Internal Rotation 4- Good- Horizontal Abduction 4- Good- Comments bicep 4/5 Hip Strength Hip Manual Muscle Testing Right Flexion (L2) 3+ Fair+ Extension (S1) 2+ Poor+ Abduction 3 Fair Adduction 2+ Poor+ Left Flexion (L2) 4- Good- Extension (S1) 3+ Fair+ Abduction 4- Good- Adduction 4- Good- Comments tendency to move into hip ER with hip flexion Knee Strength Knee Manual Muscle Testing Right Flexion (S2) 3 Fair Extension (L3) 3+ Fair+ Left Flexion (S2) 4- Good- Extension (L3) 3+ Fair+ Ankle/Foot Strength Ankle and Foot Manual Muscle Testing Right Dorsiflexion (L4) 2+ Poor+ Plantarflexion (S1) 3 Fair Comments tested in sitting Left Dorsiflexion (L4) 3 Fair Plantarflexion (S1) 3 Fair Comments tested in sitting PT-OP-Q Treatments Start: 03/31/24 11:47 Freq: Status: Active Protocol: Document 04/30/24 14:31 SP (Rec: 04/30/24 15:36 SP [id number]) Cardio Equipment Recumbent Stepper (Sci-Fit) Duration (Minutes) 4 Resistance 3 Seat Position 10 Other Max cues BIG steps, 20- 33s RPMs Gym Equipment Shuttle Recovery Bilateral Heel Raises Details tactile cues heel raises, eccentric lower DF Resistance 37# 1 navy Reps/Time x20 Unilateral Squats Details cued slower pacing Resistance R 37#>25# navy Reps/Time 10 reps, 5 reps Bilateral Squats Details facial grimising needed to reduce resistance- pointed commun. form HARD Resistance 75#> 62# (2 navy) Reps/Time x15 Therapeutic Exercises Sitting Exercises Marching Sitting Exercise Name Marching Side bilateral Resistance 5# leg wt Equipment Used kick to INSURANCE BROKER hand target Reps/Minutes 20 alternating Comments tacatile cue knee high lift LAQ Side bilateral Resistance 5# leg wt Equipment Used kick to INSURANCE BROKER hand target for TKE Reps/Minutes x20- Comments cued bring foot back to start position, full range Hip Abduction Sitting Exercise Name Hip Abduction Side bilateral Resistance Lv 2 at thighs Equipment Used therapist held Reps/Minutes 2 x10 Comments demo follow Gait Training Gait Activity Quad Cane Description Quad Cane Ambulation- fascial grimising 2nd 1/, shook head no pain,nod yes Device Used SBQC Level of Assistance CGA, Min A wt shift L for RLE clearance Surface Floor Distance/Duration 26', w/c follow by PT AIde 2nd 1/2 distance- stop stand breath rest Comments cues for sequencing downward pressure: Rft, Lft, tall posture, TKE RLE, provided support under RUE // Bars Description fwd & pivot turn return start Device Used // bars L HR x3, HW in LUE x1 Level of Assistance CGA Distance/Duration 10' x laps Treatment Focus RLe foot clearance, sequencing BLEs/LUE, pivot turns Comments cues increase R foot clearance & stride PT-OP-T Assessment and Plan Start: 03/31/24 11:47 Freq: Status: Active Protocol: Document 04/30/24 14:31 SP (Rec: 04/30/24 15:36 SP [id number]) Physical Therapy Assessment Goals Four Impairment standing balance impaired Athlete Marketing Agent Goal (LTG) Pt will be able to stand with equal WB using AD with SPV or better for at least 2 minutes in initiation for future standing ADLs or gait training , if appropriate LTG Duration 12 weeks Three Impairment impaired RLE strength for transfers Assisted Goal (LTG) Pt will be able to perform sit to stand transfer to AD with SPV or better LTG Duration 12 weeks Two Impairment bed mobility and chair transfers impaired Short Term Goal (STG) Pt will be able to scoot in multiple directions with or without UE assist in order to facilitate more efficient transfers to/from wheel chair and bed mobility STG Duration 8 weeks Athlete Marketing Agent Goal (LTG) Pt will improve FIST score >40 /56 to demonstrate improved stability and trunk control during transfers LTG Duration 12 weeks One Impairment not performing HEP for carryover with PT sessions Assisted Goal (LTG) If appropriate, pt will be IND with HEP in order to maximize progression with PT and maintain progress upon discharge LTG Duration 12 weeks Assessment Summary Assessment Pt progressed distance use of QC, at times unsteadiness with facial grimising and postural tension with verbal grunting mainly due to infrequent sequencing QC and RLE advancement clearance, no w/c follow initially. Ed stop stand rest breath for postural reset then proceeded with better confidence w/c follow by PT Aide. Pt decreased strengthen on shuttle recovery after gait and bike, needed reduce resistance for rep performance. Continued HW use inside//bars, cues for downward pressure and RLE clearance max cues sequencing 3 pt gait. Pt tends to limit self when near //bars. Will continue outside //bars next tx. Physical Therapy Plan Frequency and Duration Frequency of Treatment 1-2x/wk Duration of treatment (weeks) 12 Plan of Care Start Date 04/01/24 Plan of Care End Date 06/25/24 Therapeutic Interventions Therapeutic Interventions Balance Training,Canalithic Repositioning,Coordination Training,Gait Training,Home Exercise Program,Joint Mobilizations,Manual Therapy, Neuromuscular Re-education, Orthotic/Prosthetic Management ,Patient/Caregiver Education, Self-Care/Home Management, Sensory Integration,Soft Tissue Mobilization,Taping, Therapeutic Activities, Therapeutic Exercises, Vestibular Rehabilitation Modalities Biofeedback,Cold Pack/Ice Massage,Electric Stimulation, Hot Packs,Ultrasound Next Visit Focus/Plan Next Note Type Treatment Note Next Visit Plan Continue performance and eduation safety with directioning squat pivot transfers, scooting, and STS. Continue HW gait outside // bars, move w/c approx 20 ft + for self target. Next tx: Education on and fitting for possible RLE AFO, AD for STS if needed seated balance training. RLE strengthening of quad/glute
--- NOTE | 2024-05-04 15:18 | PT.OTN ---
Current Diagnoses Hemiplegia and hemiparesis following cerebral infarction affecting right dominant side (05/04/24) Unilateral primary osteoarthritis, right knee (05/04/24) Primary osteoarthritis, right shoulder (05/04/24) Stiffness of right shoulder, not elsewhere classified (05/04/24) Stiffness of right hip, not elsewhere classified (05/04/24) Stiffness of right knee, not elsewhere classified (05/04/24) Stiffness of right ankle, not elsewhere classified (05/04/24) Other lack of coordination (05/04/24) Weakness (05/04/24) Physical Therapy Treatment Note PT-OP-A Visit Information Start: 03/31/24 11:47 Freq: Status: Active Protocol: Document 05/04/24 14:30 DCW (Rec: 05/04/24 15:17 DCW [id number]) Out-Patient Physical Therapy Visit Information Visit Information Visit Type Treatment Note Visit Start Time 14:30 Visit Stop Time 15:14 Visit Number 6 Number of ROLLS BAKER Visits 1 Evaluation Information Evaluation Date 04/01/24 Precautions Precautions Hx CVA with R sided deficits, fall risk Uses: lettering & number HO for communication support. PT-OP-B Current Condition Start: 03/31/24 11:47 Freq: Status: Active Protocol: Document 04/01/24 09:47 NM (Rec: 04/01/24 11:19 NM [id number]) Current Condition History of Current Condition History of Current Condition Pt presents to PT with R sided deficits following a L sided CVA 5 years ago. Pt primarily uses a manual wheelchair for mobility, utilizing BLE to propel (L>R) herself. Pt is largely non-verbal following her stroke, demonstrating expressive aphasia; she utilizes a chart to express her needs and is able to express yes/no to provide history. Pt lives in an assisted living facility and has caregivers at the facility who assist with ADLs; however , she presents to the evaluation alone. Pt reports that she is IND for most dressing ADLs (e.g. don/doff shoes and compression hose) but needs assist for eating. Prior to her CVA, pt was IND with all ADLs and mobility; she did not use any AD. Pt has not ambulated since her stroke 5 years ago. She does not stand except to transfer. Pt is IND with transfers from her chair to the bed, using a stand-step pivot toward her L side. Pt's RUE is flexed at her elbow, then supinated with wrist extension and finger flexion. Pt does report prn R knee, low back, and R shoulder /hand pain. She does not have an AFO. Pt presents to clinic with a spc but reports that she had not used her spc for mobility; did not use prior to CVA. Pt primarily relies on the bus for transportation. Prior Treatments and Tests Pt is concurrently in speech and occupation therapy Treatment Goals Patient/Caregiver Goals Pawel's goal is to ambulate PT-OP-C Subjective Start: 03/31/24 11:47 Freq: Status: Active Protocol: Document 05/04/24 14:30 DCW (Rec: 05/04/24 15:18 DCW [id number]) OP-PT Subjective Patient Comments Patient Comments Pt nods in agreement that she is doing well. PT-OP-D Balance Start: 03/31/24 11:47 Freq: Status: Active Protocol: Document 04/01/24 09:47 NM (Rec: 04/01/24 11:19 NM [id number]) OP-PT Balance Assessment Sitting Balance Static Sitting Balance Ability Good Dynamic Sitting Balance Ability Good Sitting Balance Comments Function in Sitting Test (FIST ): Standing Balance Static Standing Balance Ability Poor Dynamic Standing Balance Ability Poor Murray Fall Scale Copyright Permission PT-OP-F Manual Assessment Start: 03/31/24 11:47 Freq: Status: Active Protocol: Document 04/01/24 09:47 NM (Rec: 04/01/24 11:19 NM [id number]) Manual Assessments Joint Mobility Assessment Joint Mobility Assessment Limitations with passive R knee flex, full ext PROM; mild limitations AROM in supine; hyperextension in stance. Decreased R ankle dorsiflexion and plantarflexion mobility Decreased R scapular mobility and glenohumeral translation PT-OP-G Mobility & Gait Start: 03/31/24 11:47 Freq: Status: Active Protocol: Document 04/01/24 09:47 NM (Rec: 04/01/24 11:19 NM [id number]) OP Mobility Evaluation Bed Mobility Rolling unable to roll R rolls to L side with block motion with L sided assist to side Supine to and from Sit to L side, using LUE to stabilize, needs min A at trunk to stabilize Transfers Sit to Stand needs 1 UE to assist with stand and scooting to edge of wheelchair, demos hyperextension of R knee once in stance. Strong tendency to shift toward L side, use LLE to rise, RLE further from sit Bed to Chair Transfers partial step pivot IND to L side from wheel chair to EOM Wheelchair Management Type of Wheelchair manual Special Equipment cushion air Assessment Details using LLE to propel OP Gait Assessment Gait Gait Assistance Required: Maximum Assistance,1 Person Assist Assistive Devices Assistive Device Gait Belt,Eros Walker Gait Deviations General Gait Pattern Antalgic,Flexed Trunk Comments Gait Comments Pt able to lift ea LE individually in place but unable to actually advance RLE , limited in part by inability to coordinate R hip/knee flexion in standing position and poor R foot clearance. Needs PT to block R knee to prevent buckling in R stance while minimally advancing LLE using hemiwalker on L side. Heavily dependent on LUE for support when attempting to lift RLE from floor. PT-OP-H Neuro Start: 03/31/24 11:47 Freq: Status: Active Protocol: Document 04/01/24 09:47 NM (Rec: 04/01/24 11:19 NM [id number]) Coordination Evaluation Upper Extremity Tests Right Finger to Nose Test Activity Impossible Finger to Therapist's Finger Test Activity Impossible Pronation/Supination Test Activity Impossible Left Finger to Nose Test Severe Impairment Finger to Therapist's Finger Test Moderate Impairment Pronation/Supination Test Severe Impairment Lower Extremity Tests Right Alternate Heel to Knee; Heel to Toe Test Severe Impairment Heel on Taylor Test Severe Impairment Foot Tapping Test Severe Impairment Left Alternate Heel to Knee; Heel to Toe Test Severe Impairment Heel on Taylor Test Moderate Impairment Foot Tapping Test Minimal Impairment Muscle Tone Tone Assessment Right Lower Extremity Extensor Tone Description Mild Hypertonicity Muscle Tone Comments More tone is present at R foot with supination/ plantarflexion than at hip/ knee Right Upper Extremity Flexor Tone Description Severe Hypertonicity PT-OP-J Posture/Palpation/Skin Start: 03/31/24 11:47 Freq: Status: Active Protocol: Document 04/01/24 09:47 NM (Rec: 04/01/24 16:02 NM [id number]) Posture Evaluation Comments Posture Comments In wheelchair, pt presents with forward head posture, rounded shoulder and slight kyphotic posture. Her RUE is abducted with elbow flexion, forearm supination, wrist extension, and finger flexion with thumb tucked inside her fingers. Her BLE are at 90/90 position at hip/knee at floor with slight supination/ plantarflexion in R foot PT-OP-K Range of Motion Start: 03/31/24 11:47 Freq: Status: Active Protocol: Document 04/01/24 09:47 NM (Rec: 04/01/24 15:56 NM [id number]) Shoulder Goniometric Range of Motion Shoulder ROM Limitations Comments Defer to OT for UE ADLs at this time Knee Goniometric Range of Motion Knee Right Flexion Active (degrees) 115 Extension Active (degrees) 5 Left Flexion Active (degrees) 130 Extension Active (degrees) 3 Ankle and Foot Goniometric Range of Motion Ankle and Foot Right Plantarflexion 20 Comments lacking 10 deg from neutral dorsiflexion Left Dorsiflexion with Knee Extended 3 Plantarflexion 30 PT-OP-M Strength Start: 03/31/24 11:47 Freq: Status: Active Protocol: Document 04/01/24 09:47 NM (Rec: 04/01/24 11:19 NM [id number]) Shoulder Strength Shoulder Manual Muscle Testing Left Flexion 3+ Fair+ Abduction (C5) 3+ Fair+ Internal Rotation 4- Good- Horizontal Abduction 4- Good- Comments bicep 4/5 Hip Strength Hip Manual Muscle Testing Right Flexion (L2) 3+ Fair+ Extension (S1) 2+ Poor+ Abduction 3 Fair Adduction 2+ Poor+ Left Flexion (L2) 4- Good- Extension (S1) 3+ Fair+ Abduction 4- Good- Adduction 4- Good- Comments tendency to move into hip ER with hip flexion Knee Strength Knee Manual Muscle Testing Right Flexion (S2) 3 Fair Extension (L3) 3+ Fair+ Left Flexion (S2) 4- Good- Extension (L3) 3+ Fair+ Ankle/Foot Strength Ankle and Foot Manual Muscle Testing Right Dorsiflexion (L4) 2+ Poor+ Plantarflexion (S1) 3 Fair Comments tested in sitting Left Dorsiflexion (L4) 3 Fair Plantarflexion (S1) 3 Fair Comments tested in sitting PT-OP-Q Treatments Start: 03/31/24 11:47 Freq: Status: Active Protocol: Document 05/04/24 14:30 DCW (Rec: 05/04/24 15:17 DCW [id number]) Cardio Equipment Recumbent Stepper (Sci-Fit) Duration (Minutes) 6 Resistance 3 Seat Position 12 Other Mod cues BIG steps, 30s RPMs Gym Equipment Shuttle Recovery Bilateral Heel Raises Details mild VCs Resistance 37# 1 navy Reps/Time x20 Unilateral Squats Details cued slower pacing Resistance 25# navy Reps/Time 10 reps, 5 reps Bilateral Squats Resistance 62#->50# (2 navy) Reps/Time x15 Therapeutic Exercises Sitting Exercises LAQ Side bilateral Resistance 5# leg wt Equipment Used kick to ROLLS BAKER hand target for TKE Reps/Minutes x20- Comments cued bring foot back to start position, full range Hip Abduction Sitting Exercise Name Hip Abduction Side bilateral Resistance Lv 2 at thighs Equipment Used therapist held Reps/Minutes 2 x10 Comments demo follow Hamstring Curls Sitting Exercise Name Hamstring Curls Side right Resistance Lv 2 Reps/Minutes 10 therapist anchored Gait Training Gait Activity Quad Cane Description Quad Cane Ambulation Device Used SBQC Level of Assistance CGA, wt shift L for RLE clearance Surface Floor Distance/Duration 32', w/c follow by PT Aide Comments VCs for UE support, initially quad cane was mainly hovering over floor during gait. PT-OP-T Assessment and Plan Start: 03/31/24 11:47 Freq: Status: Active Protocol: Document 05/04/24 14:30 DCW (Rec: 05/04/24 15:17 DCW [id number]) Physical Therapy Assessment Impairments Impairments Activity Tolerance,Balance, Coordination,Edema,Functional Activities,Functional Mobility ,Gait,Integument,Pain,Posture, ROM,Sensation,Soft Tissue Mobility,Strength,Tone, Transfers,Vestibular,Visual Motor Goals Four Impairment standing balance impaired Supervisor [employer] Goal (LTG) Pt will be able to stand with equal WB using AD with SPV or better for at least 2 minutes in initiation for future standing ADLs or gait training , if appropriate LTG Duration 12 weeks Three Impairment impaired RLE strength for transfers Supervisor [employer] Goal (LTG) Pt will be able to perform sit to stand transfer to AD with SPV or better LTG Duration 12 weeks Two Impairment bed mobility and chair transfers impaired Short Term Goal (STG) Pt will be able to scoot in multiple directions with or without UE assist in order to facilitate more efficient transfers to/from wheel chair and bed mobility STG Duration 8 weeks Supervisor [employer] Goal (LTG) Pt will improve FIST score >40 /56 to demonstrate improved stability and trunk control during transfers LTG Duration 12 weeks One Impairment not performing HEP for carryover with PT sessions Fpc Goal (LTG) If appropriate, pt will be IND with HEP in order to maximize progression with PT and maintain progress upon discharge LTG Duration 12 weeks Assessment Summary Assessment Doing well progressing ambulation, was using quad cane minimally today, it was more like she was carrying it along with her, with the feet hovering over the floor, until she fatigued after ~10 feet. Physical Therapy Plan Frequency and Duration Frequency of Treatment 1-2x/wk Duration of treatment (weeks) 12 Plan of Care Start Date 04/01/24 Plan of Care End Date 06/25/24 Therapeutic Interventions Therapeutic Interventions Balance Training,Canalithic Repositioning,Coordination Training,Gait Training,Home Exercise Program,Joint Mobilizations,Manual Therapy, Neuromuscular Re-education, Orthotic/Prosthetic Management ,Patient/Caregiver Education, Self-Care/Home Management, Sensory Integration,Soft Tissue Mobilization,Taping, Therapeutic Activities, Therapeutic Exercises, Vestibular Rehabilitation Modalities Biofeedback,Cold Pack/Ice Massage,Electric Stimulation, Hot Packs,Ultrasound Next Visit Focus/Plan Next Note Type Treatment Note Next Visit Plan Continue performance and education safety with directioning squat pivot transfers, scooting, and STS. Continue HW gait outside // bars, move w/c approx 20 ft + for self target. Next tx: Education on and fitting for possible RLE AFO, AD for STS if needed seated balance training. RLE strengthening of quad/glute
--- NOTE | 2024-05-07 15:20 | PT.OTN ---
Current Diagnoses Hemiplegia and hemiparesis following cerebral infarction affecting right dominant side (05/07/24) Unilateral primary osteoarthritis, right knee (05/07/24) Primary osteoarthritis, right shoulder (05/07/24) Stiffness of right shoulder, not elsewhere classified (05/07/24) Stiffness of right hip, not elsewhere classified (05/07/24) Stiffness of right knee, not elsewhere classified (05/07/24) Stiffness of right ankle, not elsewhere classified (05/07/24) Other lack of coordination (05/07/24) Weakness (05/07/24) Physical Therapy Treatment Note PT-OP-A Visit Information Start: 03/31/24 11:47 Freq: Status: Active Protocol: Document 05/07/24 14:30 DCW (Rec: 05/07/24 15:20 DCW [id number]) Out-Patient Physical Therapy Visit Information Visit Information Visit Type Treatment Note Visit Start Time 14:30 Visit Stop Time 15:15 Visit Number 7 Number of RADIO MECHANIC Visits 0 Evaluation Information Evaluation Date 04/01/24 Precautions Precautions Hx CVA with R sided deficits, fall risk Uses: lettering & number HO for communication support. PT-OP-B Current Condition Start: 03/31/24 11:47 Freq: Status: Active Protocol: Document 04/01/24 09:47 NM (Rec: 04/01/24 11:19 NM [id number]) Current Condition History of Current Condition History of Current Condition Pt presents to PT with R sided deficits following a L sided CVA 5 years ago. Pt primarily uses a manual wheelchair for mobility, utilizing BLE to propel (L>R) herself. Pt is largely non-verbal following her stroke, demonstrating expressive aphasia; she utilizes a chart to express her needs and is able to express yes/no to provide history. Pt lives in an assisted living facility and has caregivers at the facility who assist with ADLs; however , she presents to the evaluation alone. Pt reports that she is IND for most dressing ADLs (e.g. don/doff shoes and compression hose) but needs assist for eating. Prior to her CVA, pt was IND with all ADLs and mobility; she did not use any AD. Pt has not ambulated since her stroke 5 years ago. She does not stand except to transfer. Pt is IND with transfers from her chair to the bed, using a stand-step pivot toward her L side. Pt's RUE is flexed at her elbow, then supinated with wrist extension and finger flexion. Pt does report prn R knee, low back, and R shoulder /hand pain. She does not have an AFO. Pt presents to clinic with a spc but reports that she had not used her spc for mobility; did not use prior to CVA. Pt primarily relies on the bus for transportation. Prior Treatments and Tests Pt is concurrently in speech and occupation therapy Treatment Goals Patient/Caregiver Goals Pawel's goal is to ambulate PT-OP-C Subjective Start: 03/31/24 11:47 Freq: Status: Active Protocol: Document 05/07/24 14:30 DCW (Rec: 05/07/24 15:20 DCW [id number]) OP-PT Subjective Patient Comments Patient Comments Pt nods in agreement that she is doing well. PT-OP-D Balance Start: 03/31/24 11:47 Freq: Status: Active Protocol: Document 04/01/24 09:47 NM (Rec: 04/01/24 11:19 NM [id number]) OP-PT Balance Assessment Sitting Balance Static Sitting Balance Ability Good Dynamic Sitting Balance Ability Good Sitting Balance Comments Function in Sitting Test (FIST ): Standing Balance Static Standing Balance Ability Poor Dynamic Standing Balance Ability Poor Murray Fall Scale Copyright Permission PT-OP-F Manual Assessment Start: 03/31/24 11:47 Freq: Status: Active Protocol: Document 04/01/24 09:47 NM (Rec: 04/01/24 11:19 NM [id number]) Manual Assessments Joint Mobility Assessment Joint Mobility Assessment Limitations with passive R knee flex, full ext PROM; mild limitations AROM in supine; hyperextension in stance. Decreased R ankle dorsiflexion and plantarflexion mobility Decreased R scapular mobility and glenohumeral translation PT-OP-G Mobility & Gait Start: 03/31/24 11:47 Freq: Status: Active Protocol: Document 04/01/24 09:47 NM (Rec: 04/01/24 11:19 NM [id number]) OP Mobility Evaluation Bed Mobility Rolling unable to roll R rolls to L side with block motion with L sided assist to side Supine to and from Sit to L side, using LUE to stabilize, needs min A at trunk to stabilize Transfers Sit to Stand needs 1 UE to assist with stand and scooting to edge of wheelchair, demos hyperextension of R knee once in stance. Strong tendency to shift toward L side, use LLE to rise, RLE further from sit Bed to Chair Transfers partial step pivot IND to L side from wheel chair to EOM Wheelchair Management Type of Wheelchair manual Special Equipment cushion air Assessment Details using LLE to propel OP Gait Assessment Gait Gait Assistance Required: Maximum Assistance,1 Person Assist Assistive Devices Assistive Device Gait Belt,Eros Walker Gait Deviations General Gait Pattern Antalgic,Flexed Trunk Comments Gait Comments Pt able to lift ea LE individually in place but unable to actually advance RLE , limited in part by inability to coordinate R hip/knee flexion in standing position and poor R foot clearance. Needs PT to block R knee to prevent buckling in R stance while minimally advancing LLE using hemiwalker on L side. Heavily dependent on LUE for support when attempting to lift RLE from floor. PT-OP-H Neuro Start: 03/31/24 11:47 Freq: Status: Active Protocol: Document 04/01/24 09:47 NM (Rec: 04/01/24 11:19 NM [id number]) Coordination Evaluation Upper Extremity Tests Right Finger to Nose Test Activity Impossible Finger to Therapist's Finger Test Activity Impossible Pronation/Supination Test Activity Impossible Left Finger to Nose Test Severe Impairment Finger to Therapist's Finger Test Moderate Impairment Pronation/Supination Test Severe Impairment Lower Extremity Tests Right Alternate Heel to Knee; Heel to Toe Test Severe Impairment Heel on Taylor Test Severe Impairment Foot Tapping Test Severe Impairment Left Alternate Heel to Knee; Heel to Toe Test Severe Impairment Heel on Taylor Test Moderate Impairment Foot Tapping Test Minimal Impairment Muscle Tone Tone Assessment Right Lower Extremity Extensor Tone Description Mild Hypertonicity Muscle Tone Comments More tone is present at R foot with supination/ plantarflexion than at hip/ knee Right Upper Extremity Flexor Tone Description Severe Hypertonicity PT-OP-J Posture/Palpation/Skin Start: 03/31/24 11:47 Freq: Status: Active Protocol: Document 04/01/24 09:47 NM (Rec: 04/01/24 16:02 NM [id number]) Posture Evaluation Comments Posture Comments In wheelchair, pt presents with forward head posture, rounded shoulder and slight kyphotic posture. Her RUE is abducted with elbow flexion, forearm supination, wrist extension, and finger flexion with thumb tucked inside her fingers. Her BLE are at 90/90 position at hip/knee at floor with slight supination/ plantarflexion in R foot PT-OP-K Range of Motion Start: 03/31/24 11:47 Freq: Status: Active Protocol: Document 04/01/24 09:47 NM (Rec: 04/01/24 15:56 NM [id number]) Shoulder Goniometric Range of Motion Shoulder ROM Limitations Comments Defer to OT for UE ADLs at this time Knee Goniometric Range of Motion Knee Right Flexion Active (degrees) 115 Extension Active (degrees) 5 Left Flexion Active (degrees) 130 Extension Active (degrees) 3 Ankle and Foot Goniometric Range of Motion Ankle and Foot Right Plantarflexion 20 Comments lacking 10 deg from neutral dorsiflexion Left Dorsiflexion with Knee Extended 3 Plantarflexion 30 PT-OP-M Strength Start: 03/31/24 11:47 Freq: Status: Active Protocol: Document 04/01/24 09:47 NM (Rec: 04/01/24 11:19 NM [id number]) Shoulder Strength Shoulder Manual Muscle Testing Left Flexion 3+ Fair+ Abduction (C5) 3+ Fair+ Internal Rotation 4- Good- Horizontal Abduction 4- Good- Comments bicep 4/5 Hip Strength Hip Manual Muscle Testing Right Flexion (L2) 3+ Fair+ Extension (S1) 2+ Poor+ Abduction 3 Fair Adduction 2+ Poor+ Left Flexion (L2) 4- Good- Extension (S1) 3+ Fair+ Abduction 4- Good- Adduction 4- Good- Comments tendency to move into hip ER with hip flexion Knee Strength Knee Manual Muscle Testing Right Flexion (S2) 3 Fair Extension (L3) 3+ Fair+ Left Flexion (S2) 4- Good- Extension (L3) 3+ Fair+ Ankle/Foot Strength Ankle and Foot Manual Muscle Testing Right Dorsiflexion (L4) 2+ Poor+ Plantarflexion (S1) 3 Fair Comments tested in sitting Left Dorsiflexion (L4) 3 Fair Plantarflexion (S1) 3 Fair Comments tested in sitting PT-OP-Q Treatments Start: 03/31/24 11:47 Freq: Status: Active Protocol: Document 05/07/24 14:30 DCW (Rec: 05/07/24 15:20 DCW [id number]) Gym Equipment Shuttle Recovery Bilateral Heel Raises Resistance 37# 1 navy Reps/Time x20 Unilateral Squats Details cued slower pacing Resistance 25# navy Reps/Time 10 reps, 5 reps Bilateral Squats Resistance 50# (2 navy) Reps/Time x15 Therapeutic Exercises Sitting Exercises Hip Abduction Sitting Exercise Name Hip Abduction Side bilateral Resistance Lv 2 at thighs Equipment Used therapist held Reps/Minutes 2 x10 Standing Exercises Marching Standing Exercise Name Toe Taps Side bilateral Resistance 5# Equipment Used 6 step Gait Training Gait Activity Quad Cane Description Quad Cane Ambulation Device Used SBQC Level of Assistance CGA, wt shift L for RLE clearance Surface Floor Distance/Duration 74', w/c follow by PT Aide Comments Pt giggled, dropped cane, and used rail in hallway for 20' during gait, then returned to using cane. Neuro Re-Education Treatment Balance Activities Tandem stance Details Tandem stance Reps/Duration @ rail Foam Details EO/EC Surface AirEx Equipment @ rail Hurdles Details Hurdles Equipment // bars PT-OP-T Assessment and Plan Start: 03/31/24 11:47 Freq: Status: Active Protocol: Document 05/07/24 14:30 DCW (Rec: 05/07/24 15:20 DCW [id number]) Physical Therapy Assessment Impairments Impairments Activity Tolerance,Balance, Coordination,Edema,Functional Activities,Functional Mobility ,Gait,Integument,Pain,Posture, ROM,Sensation,Soft Tissue Mobility,Strength,Tone, Transfers,Vestibular,Visual Motor Goals Four Impairment standing balance impaired [place] Goal (LTG) Pt will be able to stand with equal WB using AD with SPV or better for at least 2 minutes in initiation for future standing ADLs or gait training , if appropriate LTG Duration 12 weeks Three Impairment impaired RLE strength for transfers Nursing Home Goal (LTG) Pt will be able to perform sit to stand transfer to AD with SPV or better LTG Duration 12 weeks Two Impairment bed mobility and chair transfers impaired Short Term Goal (STG) Pt will be able to scoot in multiple directions with or without UE assist in order to facilitate more efficient transfers to/from wheel chair and bed mobility STG Duration 8 weeks [place] Goal (LTG) Pt will improve FIST score >40 /56 to demonstrate improved stability and trunk control during transfers LTG Duration 12 weeks One Impairment not performing HEP for carryover with PT sessions Nursing Home Goal (LTG) If appropriate, pt will be IND with HEP in order to maximize progression with PT and maintain progress upon discharge LTG Duration 12 weeks Assessment Summary Assessment Pt doubled gait distance today compared to PT visit 3 days ago. Continue to work on gait training, activity tolerance, balance, and LE strengthening Physical Therapy Plan Frequency and Duration Frequency of Treatment 1-2x/wk Duration of treatment (weeks) 12 Plan of Care Start Date 04/01/24 Plan of Care End Date 06/25/24 Therapeutic Interventions Therapeutic Interventions Balance Training,Canalithic Repositioning,Coordination Training,Gait Training,Home Exercise Program,Joint Mobilizations,Manual Therapy, Neuromuscular Re-education, Orthotic/Prosthetic Management ,Patient/Caregiver Education, Self-Care/Home Management, Sensory Integration,Soft Tissue Mobilization,Taping, Therapeutic Activities, Therapeutic Exercises, Vestibular Rehabilitation Modalities Biofeedback,Cold Pack/Ice Massage,Electric Stimulation, Hot Packs,Ultrasound Next Visit Focus/Plan Next Note Type Treatment Note Next Visit Plan Continue performance and eduation safety with directioning squat pivot transfers, scooting, and STS. Continue HW gait outside // bars, move w/c approx 20 ft + for self target. Next tx: Education on and fitting for possible RLE AFO, AD for STS if needed seated balance training. RLE strengthening of quad/glute
--- NOTE | 2024-05-17 15:17 | PT.OTN ---
Current Diagnoses Hemiplegia and hemiparesis following cerebral infarction affecting right dominant side (05/17/24) Unilateral primary osteoarthritis, right knee (05/17/24) Primary osteoarthritis, right shoulder (05/17/24) Stiffness of right shoulder, not elsewhere classified (05/17/24) Stiffness of right hip, not elsewhere classified (05/17/24) Stiffness of right knee, not elsewhere classified (05/17/24) Stiffness of right ankle, not elsewhere classified (05/17/24) Other lack of coordination (05/17/24) Weakness (05/17/24) Physical Therapy Treatment Note PT-OP-A Visit Information Start: 03/31/24 11:47 Freq: Status: Active Protocol: Document 05/17/24 14:37 SP (Rec: 05/17/24 15:36 SP [id number]) Out-Patient Physical Therapy Visit Information Visit Information Visit Type Treatment Note Visit Start Time 14:37 Visit Stop Time 15:17 Visit Number 8 Number of [employer] C[employer] FINISHER Visits 1 Evaluation Information Evaluation Date 04/01/24 Precautions Precautions Hx CVA with R sided deficits, fall risk Uses: lettering & number HO for communication support. PT-OP-B Current Condition Start: 03/31/24 11:47 Freq: Status: Active Protocol: Document 04/01/24 09:47 NM (Rec: 04/01/24 11:19 NM [id number]) Current Condition History of Current Condition History of Current Condition Pt presents to PT with R sided deficits following a L sided CVA 5 years ago. Pt primarily uses a manual wheelchair for mobility, utilizing BLE to propel (L>R) herself. Pt is largely non-verbal following her stroke, demonstrating expressive aphasia; she utilizes a chart to express her needs and is able to express yes/no to provide history. Pt lives in an assisted living facility and has caregivers at the facility who assist with ADLs; however , she presents to the evaluation alone. Pt reports that she is IND for most dressing ADLs (e.g. don/doff shoes and compression hose) but needs assist for eating. Prior to her CVA, pt was IND with all ADLs and mobility; she did not use any AD. Pt has not ambulated since her stroke 5 years ago. She does not stand except to transfer. Pt is IND with transfers from her chair to the bed, using a stand-step pivot toward her L side. Pt's RUE is flexed at her elbow, then supinated with wrist extension and finger flexion. Pt does report prn R knee, low back, and R shoulder /hand pain. She does not have an AFO. Pt presents to clinic with a spc but reports that she had not used her spc for mobility; did not use prior to CVA. Pt primarily relies on the bus for transportation. Prior Treatments and Tests Pt is concurrently in speech and occupation therapy Treatment Goals Patient/Caregiver Goals Pawel's goal is to ambulate PT-OP-C Subjective Start: 03/31/24 11:47 Freq: Status: Active Protocol: Document 05/17/24 14:37 SP (Rec: 05/17/24 15:36 SP [id number]) OP-PT Subjective Patient Comments Patient Comments Pt nods in agreement doing ok. PT-OP-D Balance Start: 03/31/24 11:47 Freq: Status: Active Protocol: Document 04/01/24 09:47 NM (Rec: 04/01/24 11:19 NM [id number]) OP-PT Balance Assessment Sitting Balance Static Sitting Balance Ability Good Dynamic Sitting Balance Ability Good Sitting Balance Comments Function in Sitting Test (FIST ): Standing Balance Static Standing Balance Ability Poor Dynamic Standing Balance Ability Poor Murray Fall Scale Copyright Permission PT-OP-F Manual Assessment Start: 03/31/24 11:47 Freq: Status: Active Protocol: Document 04/01/24 09:47 NM (Rec: 04/01/24 11:19 NM [id number]) Manual Assessments Joint Mobility Assessment Joint Mobility Assessment Limitations with passive R knee flex, full ext PROM; mild limitations AROM in supine; hyperextension in stance. Decreased R ankle dorsiflexion and plantarflexion mobility Decreased R scapular mobility and glenohumeral translation PT-OP-G Mobility & Gait Start: 03/31/24 11:47 Freq: Status: Active Protocol: Document 04/01/24 09:47 NM (Rec: 04/01/24 11:19 NM [id number]) OP Mobility Evaluation Bed Mobility Rolling unable to roll R rolls to L side with block motion with L sided assist to side Supine to and from Sit to L side, using LUE to stabilize, needs min A at trunk to stabilize Transfers Sit to Stand needs 1 UE to assist with stand and scooting to edge of wheelchair, demos hyperextension of R knee once in stance. Strong tendency to shift toward L side, use LLE to rise, RLE further from sit Bed to Chair Transfers partial step pivot IND to L side from wheel chair to EOM Wheelchair Management Type of Wheelchair manual Special Equipment cushion air Assessment Details using LLE to propel OP Gait Assessment Gait Gait Assistance Required: Maximum Assistance,1 Person Assist Assistive Devices Assistive Device Gait Belt,Eros Walker Gait Deviations General Gait Pattern Antalgic,Flexed Trunk Comments Gait Comments Pt able to lift ea LE individually in place but unable to actually advance RLE , limited in part by inability to coordinate R hip/knee flexion in standing position and poor R foot clearance. Needs PT to block R knee to prevent buckling in R stance while minimally advancing LLE using hemiwalker on L side. Heavily dependent on LUE for support when attempting to lift RLE from floor. PT-OP-H Neuro Start: 03/31/24 11:47 Freq: Status: Active Protocol: Document 04/01/24 09:47 NM (Rec: 04/01/24 11:19 NM [id number]) Coordination Evaluation Upper Extremity Tests Right Finger to Nose Test Activity Impossible Finger to Therapist's Finger Test Activity Impossible Pronation/Supination Test Activity Impossible Left Finger to Nose Test Severe Impairment Finger to Therapist's Finger Test Moderate Impairment Pronation/Supination Test Severe Impairment Lower Extremity Tests Right Alternate Heel to Knee; Heel to Toe Test Severe Impairment Heel on Taylor Test Severe Impairment Foot Tapping Test Severe Impairment Left Alternate Heel to Knee; Heel to Toe Test Severe Impairment Heel on Taylor Test Moderate Impairment Foot Tapping Test Minimal Impairment Muscle Tone Tone Assessment Right Lower Extremity Extensor Tone Description Mild Hypertonicity Muscle Tone Comments More tone is present at R foot with supination/ plantarflexion than at hip/ knee Right Upper Extremity Flexor Tone Description Severe Hypertonicity PT-OP-J Posture/Palpation/Skin Start: 03/31/24 11:47 Freq: Status: Active Protocol: Document 04/01/24 09:47 NM (Rec: 04/01/24 16:02 NM [id number]) Posture Evaluation Comments Posture Comments In wheelchair, pt presents with forward head posture, rounded shoulder and slight kyphotic posture. Her RUE is abducted with elbow flexion, forearm supination, wrist extension, and finger flexion with thumb tucked inside her fingers. Her BLE are at 90/90 position at hip/knee at floor with slight supination/ plantarflexion in R foot PT-OP-K Range of Motion Start: 03/31/24 11:47 Freq: Status: Active Protocol: Document 04/01/24 09:47 NM (Rec: 04/01/24 15:56 NM [id number]) Shoulder Goniometric Range of Motion Shoulder ROM Limitations Comments Defer to OT for UE ADLs at this time Knee Goniometric Range of Motion Knee Right Flexion Active (degrees) 115 Extension Active (degrees) 5 Left Flexion Active (degrees) 130 Extension Active (degrees) 3 Ankle and Foot Goniometric Range of Motion Ankle and Foot Right Plantarflexion 20 Comments lacking 10 deg from neutral dorsiflexion Left Dorsiflexion with Knee Extended 3 Plantarflexion 30 PT-OP-M Strength Start: 03/31/24 11:47 Freq: Status: Active Protocol: Document 04/01/24 09:47 NM (Rec: 04/01/24 11:19 NM [id number]) Shoulder Strength Shoulder Manual Muscle Testing Left Flexion 3+ Fair+ Abduction (C5) 3+ Fair+ Internal Rotation 4- Good- Horizontal Abduction 4- Good- Comments bicep 4/5 Hip Strength Hip Manual Muscle Testing Right Flexion (L2) 3+ Fair+ Extension (S1) 2+ Poor+ Abduction 3 Fair Adduction 2+ Poor+ Left Flexion (L2) 4- Good- Extension (S1) 3+ Fair+ Abduction 4- Good- Adduction 4- Good- Comments tendency to move into hip ER with hip flexion Knee Strength Knee Manual Muscle Testing Right Flexion (S2) 3 Fair Extension (L3) 3+ Fair+ Left Flexion (S2) 4- Good- Extension (L3) 3+ Fair+ Ankle/Foot Strength Ankle and Foot Manual Muscle Testing Right Dorsiflexion (L4) 2+ Poor+ Plantarflexion (S1) 3 Fair Comments tested in sitting Left Dorsiflexion (L4) 3 Fair Plantarflexion (S1) 3 Fair Comments tested in sitting PT-OP-Q Treatments Start: 03/31/24 11:47 Freq: Status: Active Protocol: Document 05/17/24 14:37 SP (Rec: 05/17/24 15:36 SP [id number]) Cardio Equipment Recumbent Stepper (Sci-Fit) Duration (Minutes) 6 Resistance 3> 2.5 Seat Position 10- RPMs Metronome 75>72 bpm Other Max cues BIG steps fully knee ext Gym Equipment Shuttle Recovery Unilateral Squats Details Mod cuing for full range ext & flexion Resistance 25# navy Reps/Time 15, 8 reps Bilateral Squats Details nods tiring, shook head indicating no pain Resistance 50# (2 navy) Reps/Time x15 Therapeutic Exercises Sitting Exercises Hip Abduction Sitting Exercise Name Hip Abduction Side bilateral Resistance Lv 2>3 at thighs Equipment Used therapist held Reps/Minutes 15 x2 Comments cued keep heels down Standing Exercises Marching Standing Exercise Name Toe Taps Side bilateral Resistance 5# leg wt Equipment Used 6 step, l HR Reps/Minutes 20 reps alternating Comments cues RLe fully on step Gait Training Gait Activity Quad Cane Description Quad Cane Ambulation Device Used SBQC Level of Assistance CGA- 15%A, wt shift L for RLE clearance Surface Floor Distance/Duration 15 ft no w/c follow, Comments Max cues for sequencing QC ( all 4 pts on ground) then RLE then LLE, tends to lean to upright and on LLE, improve stride & bal with sequencing. Hemiwalker Device Used Hemiwalker Level of Assistance CG- 5%A Distance/Duration 26' w/c follow Comments Max cues for sequencing HW, Rft, Lft, tall posture, TKE RLE, allow R arm rest more into ext PT-OP-T Assessment and Plan Start: 03/31/24 11:47 Freq: Status: Active Protocol: Document 05/17/24 14:37 SP (Rec: 05/17/24 15:36 SP [id number]) Physical Therapy Assessment Goals Four Impairment standing balance impaired Antique Dealer Goal (LTG) Pt will be able to stand with equal WB using AD with SPV or better for at least 2 minutes in initiation for future standing ADLs or gait training , if appropriate LTG Duration 12 weeks Three Impairment impaired RLE strength for transfers Antique Dealer Goal (LTG) Pt will be able to perform sit to stand transfer to AD with SPV or better LTG Duration 12 weeks Two Impairment bed mobility and chair transfers impaired Short Term Goal (STG) Pt will be able to scoot in multiple directions with or without UE assist in order to facilitate more efficient transfers to/from wheel chair and bed mobility STG Duration 8 weeks Antique Dealer Goal (LTG) Pt will improve FIST score >40 /56 to demonstrate improved stability and trunk control during transfers LTG Duration 12 weeks One Impairment not performing HEP for carryover with PT sessions Antique Dealer Goal (LTG) If appropriate, pt will be IND with HEP in order to maximize progression with PT and maintain progress upon discharge LTG Duration 12 weeks Assessment Summary Assessment Pt tends to lean over LLE and not fully put wt into QC in LUE and RLE trailing needing increased trunk support. Improves midline stability with Max cues 1 step commands QC, RLE, LLE, and continuing when approaches w/c tends get close and let go QC leaving self off balance, Ed use QC fully back up to front wc then reach back chair arm controlled sit. When asked which she feels most stable, Danella points HW. Cues when self propelling w/c fully extend RLE receiprocating BLEs , improves. Physical Therapy Plan Frequency and Duration Frequency of Treatment 1-2x/wk Duration of treatment (weeks) 12 Plan of Care Start Date 04/01/24 Plan of Care End Date 06/25/24 Therapeutic Interventions Therapeutic Interventions Balance Training,Canalithic Repositioning,Coordination Training,Gait Training,Home Exercise Program,Joint Mobilizations,Manual Therapy, Neuromuscular Re-education, Orthotic/Prosthetic Management ,Patient/Caregiver Education, Self-Care/Home Management, Sensory Integration,Soft Tissue Mobilization,Taping, Therapeutic Activities, Therapeutic Exercises, Vestibular Rehabilitation Modalities Biofeedback,Cold Pack/Ice Massage,Electric Stimulation, Hot Packs,Ultrasound Next Visit Focus/Plan Next Note Type Treatment Note Next Visit Plan Continue gait QC vs HW vs , w/ c follow increase distance, AD for STS, safe transfers /c AD, if needed seated balance training. RLE strengthening of quad/glute
--- NOTE | 2024-05-19 16:59 | PT.OTN ---
Current Diagnoses Hemiplegia and hemiparesis following cerebral infarction affecting right dominant side (05/19/24) Unilateral primary osteoarthritis, right knee (05/19/24) Primary osteoarthritis, right shoulder (05/19/24) Stiffness of right shoulder, not elsewhere classified (05/19/24) Stiffness of right hip, not elsewhere classified (05/19/24) Stiffness of right knee, not elsewhere classified (05/19/24) Stiffness of right ankle, not elsewhere classified (05/19/24) Other lack of coordination (05/19/24) Weakness (05/19/24) Physical Therapy Treatment Note PT-OP-A Visit Information Start: 03/31/24 11:47 Freq: Status: Active Protocol: Document 05/19/24 16:15 DCW (Rec: 05/19/24 16:59 DCW [id number]) Out-Patient Physical Therapy Visit Information Visit Information Visit Type Treatment Note Visit Start Time 16:15 Visit Stop Time 17:00 Visit Number 9 Number of FREIGHT LOADER Visits 0 Evaluation Information Evaluation Date 04/01/24 Precautions Precautions Hx CVA with R sided deficits, fall risk Uses: lettering & number HO for communication support. PT-OP-B Current Condition Start: 03/31/24 11:47 Freq: Status: Active Protocol: Document 04/01/24 09:47 NM (Rec: 04/01/24 11:19 NM [id number]) Current Condition History of Current Condition History of Current Condition Pt presents to PT with R sided deficits following a L sided CVA 5 years ago. Pt primarily uses a manual wheelchair for mobility, utilizing BLE to propel (L>R) herself. Pt is largely non-verbal following her stroke, demonstrating expressive aphasia; she utilizes a chart to express her needs and is able to express yes/no to provide history. Pt lives in an assisted living facility and has caregivers at the facility who assist with ADLs; however , she presents to the evaluation alone. Pt reports that she is IND for most dressing ADLs (e.g. don/doff shoes and compression hose) but needs assist for eating. Prior to her CVA, pt was IND with all ADLs and mobility; she did not use any AD. Pt has not ambulated since her stroke 5 years ago. She does not stand except to transfer. Pt is IND with transfers from her chair to the bed, using a stand-step pivot toward her L side. Pt's RUE is flexed at her elbow, then supinated with wrist extension and finger flexion. Pt does report prn R knee, low back, and R shoulder /hand pain. She does not have an AFO. Pt presents to clinic with a spc but reports that she had not used her spc for mobility; did not use prior to CVA. Pt primarily relies on the bus for transportation. Prior Treatments and Tests Pt is concurrently in speech and occupation therapy Treatment Goals Patient/Caregiver Goals Pawel's goal is to ambulate PT-OP-C Subjective Start: 03/31/24 11:47 Freq: Status: Active Protocol: Document 05/19/24 16:15 DCW (Rec: 05/19/24 16:59 DCW [id number]) OP-PT Subjective Patient Comments Patient Comments Pt indicates she is doing well PT-OP-D Balance Start: 03/31/24 11:47 Freq: Status: Active Protocol: Document 04/01/24 09:47 NM (Rec: 04/01/24 11:19 NM [id number]) OP-PT Balance Assessment Sitting Balance Static Sitting Balance Ability Good Dynamic Sitting Balance Ability Good Sitting Balance Comments Function in Sitting Test (FIST ): Standing Balance Static Standing Balance Ability Poor Dynamic Standing Balance Ability Poor Murray Fall Scale Copyright Permission PT-OP-F Manual Assessment Start: 03/31/24 11:47 Freq: Status: Active Protocol: Document 04/01/24 09:47 NM (Rec: 04/01/24 11:19 NM [id number]) Manual Assessments Joint Mobility Assessment Joint Mobility Assessment Limitations with passive R knee flex, full ext PROM; mild limitations AROM in supine; hyperextension in stance. Decreased R ankle dorsiflexion and plantarflexion mobility Decreased R scapular mobility and glenohumeral translation PT-OP-G Mobility & Gait Start: 03/31/24 11:47 Freq: Status: Active Protocol: Document 04/01/24 09:47 NM (Rec: 04/01/24 11:19 NM [id number]) OP Mobility Evaluation Bed Mobility Rolling unable to roll R rolls to L side with block motion with L sided assist to side Supine to and from Sit to L side, using LUE to stabilize, needs min A at trunk to stabilize Transfers Sit to Stand needs 1 UE to assist with stand and scooting to edge of wheelchair, demos hyperextension of R knee once in stance. Strong tendency to shift toward L side, use LLE to rise, RLE further from sit Bed to Chair Transfers partial step pivot IND to L side from wheel chair to EOM Wheelchair Management Type of Wheelchair manual Special Equipment cushion air Assessment Details using LLE to propel OP Gait Assessment Gait Gait Assistance Required: Maximum Assistance,1 Person Assist Assistive Devices Assistive Device Gait Belt,Eros Walker Gait Deviations General Gait Pattern Antalgic,Flexed Trunk Comments Gait Comments Pt able to lift ea LE individually in place but unable to actually advance RLE , limited in part by inability to coordinate R hip/knee flexion in standing position and poor R foot clearance. Needs PT to block R knee to prevent buckling in R stance while minimally advancing LLE using hemiwalker on L side. Heavily dependent on LUE for support when attempting to lift RLE from floor. PT-OP-H Neuro Start: 03/31/24 11:47 Freq: Status: Active Protocol: Document 04/01/24 09:47 NM (Rec: 04/01/24 11:19 NM [id number]) Coordination Evaluation Upper Extremity Tests Right Finger to Nose Test Activity Impossible Finger to Therapist's Finger Test Activity Impossible Pronation/Supination Test Activity Impossible Left Finger to Nose Test Severe Impairment Finger to Therapist's Finger Test Moderate Impairment Pronation/Supination Test Severe Impairment Lower Extremity Tests Right Alternate Heel to Knee; Heel to Toe Test Severe Impairment Heel on Taylor Test Severe Impairment Foot Tapping Test Severe Impairment Left Alternate Heel to Knee; Heel to Toe Test Severe Impairment Heel on Taylor Test Moderate Impairment Foot Tapping Test Minimal Impairment Muscle Tone Tone Assessment Right Lower Extremity Extensor Tone Description Mild Hypertonicity Muscle Tone Comments More tone is present at R foot with supination/ plantarflexion than at hip/ knee Right Upper Extremity Flexor Tone Description Severe Hypertonicity PT-OP-J Posture/Palpation/Skin Start: 03/31/24 11:47 Freq: Status: Active Protocol: Document 04/01/24 09:47 NM (Rec: 04/01/24 16:02 NM [id number]) Posture Evaluation Comments Posture Comments In wheelchair, pt presents with forward head posture, rounded shoulder and slight kyphotic posture. Her RUE is abducted with elbow flexion, forearm supination, wrist extension, and finger flexion with thumb tucked inside her fingers. Her BLE are at 90/90 position at hip/knee at floor with slight supination/ plantarflexion in R foot PT-OP-K Range of Motion Start: 03/31/24 11:47 Freq: Status: Active Protocol: Document 04/01/24 09:47 NM (Rec: 04/01/24 15:56 NM [id number]) Shoulder Goniometric Range of Motion Shoulder ROM Limitations Comments Defer to OT for UE ADLs at this time Knee Goniometric Range of Motion Knee Right Flexion Active (degrees) 115 Extension Active (degrees) 5 Left Flexion Active (degrees) 130 Extension Active (degrees) 3 Ankle and Foot Goniometric Range of Motion Ankle and Foot Right Plantarflexion 20 Comments lacking 10 deg from neutral dorsiflexion Left Dorsiflexion with Knee Extended 3 Plantarflexion 30 PT-OP-M Strength Start: 03/31/24 11:47 Freq: Status: Active Protocol: Document 04/01/24 09:47 NM (Rec: 04/01/24 11:19 NM [id number]) Shoulder Strength Shoulder Manual Muscle Testing Left Flexion 3+ Fair+ Abduction (C5) 3+ Fair+ Internal Rotation 4- Good- Horizontal Abduction 4- Good- Comments bicep 4/5 Hip Strength Hip Manual Muscle Testing Right Flexion (L2) 3+ Fair+ Extension (S1) 2+ Poor+ Abduction 3 Fair Adduction 2+ Poor+ Left Flexion (L2) 4- Good- Extension (S1) 3+ Fair+ Abduction 4- Good- Adduction 4- Good- Comments tendency to move into hip ER with hip flexion Knee Strength Knee Manual Muscle Testing Right Flexion (S2) 3 Fair Extension (L3) 3+ Fair+ Left Flexion (S2) 4- Good- Extension (L3) 3+ Fair+ Ankle/Foot Strength Ankle and Foot Manual Muscle Testing Right Dorsiflexion (L4) 2+ Poor+ Plantarflexion (S1) 3 Fair Comments tested in sitting Left Dorsiflexion (L4) 3 Fair Plantarflexion (S1) 3 Fair Comments tested in sitting PT-OP-Q Treatments Start: 03/31/24 11:47 Freq: Status: Active Protocol: Document 05/19/24 16:15 DCW (Rec: 05/19/24 16:59 DCW [id number]) Cardio Equipment Recumbent Stepper (Sci-Fit) Duration (Minutes) 6 Resistance 4 Seat Position 20 rpm Other Max cues BIG steps fully knee ext Gym Equipment Shuttle Recovery Bilateral Heel Raises Resistance 37# 1 navy Reps/Time x20 Unilateral Squats Details cued slower pacing Resistance 37# navy Reps/Time 10 reps, 5 reps Bilateral Squats Resistance 50# (2 navy) Reps/Time x15 Gait Training Gait Activity Quad Cane Description Quad Cane Ambulation Device Used SBQC Level of Assistance CGA, wt shift L for RLE clearance Surface Floor Distance/Duration 58'x1, 30'x1, w/c follow by PT Aide Comments Pt giggled, dropped cane, and used rail in hallway for 20' during gait, then returned to using cane. Neuro Re-Education Treatment Balance Activities Foam Details EO/EC, X1 Surface AirEx Equipment // bars Hurdles Details Hurdles Equipment // bars PT-OP-T Assessment and Plan Start: 03/31/24 11:47 Freq: Status: Active Protocol: Document 05/19/24 16:15 DCW (Rec: 05/19/24 16:59 DCW [id number]) Physical Therapy Assessment Impairments Impairments Activity Tolerance,Balance, Coordination,Edema,Functional Activities,Functional Mobility ,Gait,Integument,Pain,Posture, ROM,Sensation,Soft Tissue Mobility,Strength,Tone, Transfers,Vestibular,Visual Motor Goals Four Impairment standing balance impaired Custodial Goal (LTG) Pt will be able to stand with equal WB using AD with SPV or better for at least 2 minutes in initiation for future standing ADLs or gait training , if appropriate LTG Duration 12 weeks Three Impairment impaired RLE strength for transfers Custodial Goal (LTG) Pt will be able to perform sit to stand transfer to AD with SPV or better LTG Duration 12 weeks Two Impairment bed mobility and chair transfers impaired Short Term Goal (STG) Pt will be able to scoot in multiple directions with or without UE assist in order to facilitate more efficient transfers to/from wheel chair and bed mobility STG Duration 8 weeks Custodial Goal (LTG) Pt will improve FIST score >40 /56 to demonstrate improved stability and trunk control during transfers LTG Duration 12 weeks One Impairment not performing HEP for carryover with PT sessions Wash Driller Helper Goal (LTG) If appropriate, pt will be IND with HEP in order to maximize progression with PT and maintain progress upon discharge LTG Duration 12 weeks Assessment Summary Assessment Pt continues to improve with ambulation tolerance and quality of gait. Some small improvements with right LE strength. Physical Therapy Plan Frequency and Duration Frequency of Treatment 1-2x/wk Duration of treatment (weeks) 12 Plan of Care Start Date 04/01/24 Plan of Care End Date 06/25/24 Therapeutic Interventions Therapeutic Interventions Balance Training,Canalithic Repositioning,Coordination Training,Gait Training,Home Exercise Program,Joint Mobilizations,Manual Therapy, Neuromuscular Re-education, Orthotic/Prosthetic Management ,Patient/Caregiver Education, Self-Care/Home Management, Sensory Integration,Soft Tissue Mobilization,Taping, Therapeutic Activities, Therapeutic Exercises, Vestibular Rehabilitation Modalities Biofeedback,Cold Pack/Ice Massage,Electric Stimulation, Hot Packs,Ultrasound Next Visit Focus/Plan Next Note Type Progress Note Next Visit Plan Continue gait QC vs HW vs , w/ c follow increase distance, AD for STS if needed seated balance training. RLE strengthening of quad/glute
--- NOTE | 2024-05-26 12:59 | PT.OTN ---
Current Diagnoses Hemiplegia and hemiparesis following cerebral infarction affecting right dominant side (05/26/24) Unilateral primary osteoarthritis, right knee (05/26/24) Primary osteoarthritis, right shoulder (05/26/24) Stiffness of right shoulder, not elsewhere classified (05/26/24) Stiffness of right hip, not elsewhere classified (05/26/24) Stiffness of right knee, not elsewhere classified (05/26/24) Stiffness of right ankle, not elsewhere classified (05/26/24) Other lack of coordination (05/26/24) Weakness (05/26/24) Physical Therapy Treatment Note PT-OP-A Visit Information Start: 03/31/24 11:47 Freq: Status: Active Protocol: Document 05/26/24 12:15 DCW (Rec: 05/26/24 12:59 DCW [id number]) Out-Patient Physical Therapy Visit Information Visit Information Visit Type Progress Note Visit Note 10th visit PN Visit Start Time 12:15 Visit Stop Time 13:00 Visit Number 10 Number of URBAN SOCIOLOGIST Visits 0 Evaluation Information Evaluation Date 04/01/24 Precautions Precautions Hx CVA with R sided deficits, fall risk Uses: lettering & number HO for communication support. PT-OP-B Current Condition Start: 03/31/24 11:47 Freq: Status: Active Protocol: Document 04/01/24 09:47 NM (Rec: 04/01/24 11:19 NM [id number]) Current Condition History of Current Condition History of Current Condition Pt presents to PT with R sided deficits following a L sided CVA 5 years ago. Pt primarily uses a manual wheelchair for mobility, utilizing BLE to propel (L>R) herself. Pt is largely non-verbal following her stroke, demonstrating expressive aphasia; she utilizes a chart to express her needs and is able to express yes/no to provide history. Pt lives in an assisted living facility and has caregivers at the facility who assist with ADLs; however , she presents to the evaluation alone. Pt reports that she is IND for most dressing ADLs (e.g. don/doff shoes and compression hose) but needs assist for eating. Prior to her CVA, pt was IND with all ADLs and mobility; she did not use any AD. Pt has not ambulated since her stroke 5 years ago. She does not stand except to transfer. Pt is IND with transfers from her chair to the bed, using a stand-step pivot toward her L side. Pt's RUE is flexed at her elbow, then supinated with wrist extension and finger flexion. Pt does report prn R knee, low back, and R shoulder /hand pain. She does not have an AFO. Pt presents to clinic with a spc but reports that she had not used her spc for mobility; did not use prior to CVA. Pt primarily relies on the bus for transportation. Prior Treatments and Tests Pt is concurrently in speech and occupation therapy Treatment Goals Patient/Caregiver Goals Pawel's goal is to ambulate PT-OP-C Subjective Start: 03/31/24 11:47 Freq: Status: Active Protocol: Document 05/26/24 12:15 DCW (Rec: 05/26/24 12:59 DCW [id number]) OP-PT Subjective Patient Comments Patient Comments Pt shrugs when asked how she's doing. Uses word chart to indicat she is hungry. PT-OP-D Balance Start: 03/31/24 11:47 Freq: Status: Active Protocol: Document 04/01/24 09:47 NM (Rec: 04/01/24 11:19 NM [id number]) OP-PT Balance Assessment Sitting Balance Static Sitting Balance Ability Good Dynamic Sitting Balance Ability Good Sitting Balance Comments Function in Sitting Test (FIST ): Standing Balance Static Standing Balance Ability Poor Dynamic Standing Balance Ability Poor Murray Fall Scale Copyright Permission PT-OP-F Manual Assessment Start: 03/31/24 11:47 Freq: Status: Active Protocol: Document 04/01/24 09:47 NM (Rec: 04/01/24 11:19 NM [id number]) Manual Assessments Joint Mobility Assessment Joint Mobility Assessment Limitations with passive R knee flex, full ext PROM; mild limitations AROM in supine; hyperextension in stance. Decreased R ankle dorsiflexion and plantarflexion mobility Decreased R scapular mobility and glenohumeral translation PT-OP-G Mobility & Gait Start: 03/31/24 11:47 Freq: Status: Active Protocol: Document 04/01/24 09:47 NM (Rec: 04/01/24 11:19 NM [id number]) OP Mobility Evaluation Bed Mobility Rolling unable to roll R rolls to L side with block motion with L sided assist to side Supine to and from Sit to L side, using LUE to stabilize, needs min A at trunk to stabilize Transfers Sit to Stand needs 1 UE to assist with stand and scooting to edge of wheelchair, demos hyperextension of R knee once in stance. Strong tendency to shift toward L side, use LLE to rise, RLE further from sit Bed to Chair Transfers partial step pivot IND to L side from wheel chair to EOM Wheelchair Management Type of Wheelchair manual Special Equipment cushion air Assessment Details using LLE to propel OP Gait Assessment Gait Gait Assistance Required: Maximum Assistance,1 Person Assist Assistive Devices Assistive Device Gait Belt,Eros Walker Gait Deviations General Gait Pattern Antalgic,Flexed Trunk Comments Gait Comments Pt able to lift ea LE individually in place but unable to actually advance RLE , limited in part by inability to coordinate R hip/knee flexion in standing position and poor R foot clearance. Needs PT to block R knee to prevent buckling in R stance while minimally advancing LLE using hemiwalker on L side. Heavily dependent on LUE for support when attempting to lift RLE from floor. PT-OP-H Neuro Start: 03/31/24 11:47 Freq: Status: Active Protocol: Document 04/01/24 09:47 NM (Rec: 04/01/24 11:19 NM [id number]) Coordination Evaluation Upper Extremity Tests Right Finger to Nose Test Activity Impossible Finger to Therapist's Finger Test Activity Impossible Pronation/Supination Test Activity Impossible Left Finger to Nose Test Severe Impairment Finger to Therapist's Finger Test Moderate Impairment Pronation/Supination Test Severe Impairment Lower Extremity Tests Right Alternate Heel to Knee; Heel to Toe Test Severe Impairment Heel on Taylor Test Severe Impairment Foot Tapping Test Severe Impairment Left Alternate Heel to Knee; Heel to Toe Test Severe Impairment Heel on Taylor Test Moderate Impairment Foot Tapping Test Minimal Impairment Muscle Tone Tone Assessment Right Lower Extremity Extensor Tone Description Mild Hypertonicity Muscle Tone Comments More tone is present at R foot with supination/ plantarflexion than at hip/ knee Right Upper Extremity Flexor Tone Description Severe Hypertonicity PT-OP-J Posture/Palpation/Skin Start: 03/31/24 11:47 Freq: Status: Active Protocol: Document 04/01/24 09:47 NM (Rec: 04/01/24 16:02 NM [id number]) Posture Evaluation Comments Posture Comments In wheelchair, pt presents with forward head posture, rounded shoulder and slight kyphotic posture. Her RUE is abducted with elbow flexion, forearm supination, wrist extension, and finger flexion with thumb tucked inside her fingers. Her BLE are at 90/90 position at hip/knee at floor with slight supination/ plantarflexion in R foot PT-OP-K Range of Motion Start: 03/31/24 11:47 Freq: Status: Active Protocol: Document 04/01/24 09:47 NM (Rec: 04/01/24 15:56 NM [id number]) Shoulder Goniometric Range of Motion Shoulder ROM Limitations Comments Defer to OT for UE ADLs at this time Knee Goniometric Range of Motion Knee Right Flexion Active (degrees) 115 Extension Active (degrees) 5 Left Flexion Active (degrees) 130 Extension Active (degrees) 3 Ankle and Foot Goniometric Range of Motion Ankle and Foot Right Plantarflexion 20 Comments lacking 10 deg from neutral dorsiflexion Left Dorsiflexion with Knee Extended 3 Plantarflexion 30 PT-OP-M Strength Start: 03/31/24 11:47 Freq: Status: Active Protocol: Document 04/01/24 09:47 NM (Rec: 04/01/24 11:19 NM [id number]) Shoulder Strength Shoulder Manual Muscle Testing Left Flexion 3+ Fair+ Abduction (C5) 3+ Fair+ Internal Rotation 4- Good- Horizontal Abduction 4- Good- Comments bicep 4/5 Hip Strength Hip Manual Muscle Testing Right Flexion (L2) 3+ Fair+ Extension (S1) 2+ Poor+ Abduction 3 Fair Adduction 2+ Poor+ Left Flexion (L2) 4- Good- Extension (S1) 3+ Fair+ Abduction 4- Good- Adduction 4- Good- Comments tendency to move into hip ER with hip flexion Knee Strength Knee Manual Muscle Testing Right Flexion (S2) 3 Fair Extension (L3) 3+ Fair+ Left Flexion (S2) 4- Good- Extension (L3) 3+ Fair+ Ankle/Foot Strength Ankle and Foot Manual Muscle Testing Right Dorsiflexion (L4) 2+ Poor+ Plantarflexion (S1) 3 Fair Comments tested in sitting Left Dorsiflexion (L4) 3 Fair Plantarflexion (S1) 3 Fair Comments tested in sitting PT-OP-Q Treatments Start: 03/31/24 11:47 Freq: Status: Active Protocol: Document 05/26/24 12:15 DCW (Rec: 05/26/24 12:59 DCW [id number]) Cardio Equipment Recumbent Stepper (Sci-Fit) Duration (Minutes) 6 Resistance 4 Seat Position 25 rpm Other VCs for BIG steps Gym Equipment Shuttle Recovery Bilateral Heel Raises Resistance 37# 1 navy Reps/Time x20 Unilateral Squats Details cued slower pacing Resistance 37# navy Reps/Time 10 reps, 5 reps Bilateral Squats Resistance 50# (2 navy) Reps/Time x15 Gait Training Gait Activity Quad Cane Description Quad Cane Ambulation Device Used SBQC Level of Assistance CGA, wt shift L for RLE clearance Surface Floor Distance/Duration 77' x1, w/c follow by PT Aide Comments Pt used rail in hallway for 20 ' during gait, then returned to using cane. Neuro Re-Education Treatment Balance Activities Toe Taps Details Toe Taps Equipment Two cones Hurdles Details Hurdles Equipment // bars PT-OP-T Assessment and Plan Start: 03/31/24 11:47 Freq: Status: Active Protocol: Document 05/26/24 12:15 DCW (Rec: 05/26/24 12:59 DCW [id number]) Physical Therapy Assessment Impairments Impairments Activity Tolerance,Balance, Coordination,Edema,Functional Activities,Functional Mobility ,Gait,Integument,Pain,Posture, ROM,Sensation,Soft Tissue Mobility,Strength,Tone, Transfers,Vestibular,Visual Motor Goals Four Impairment standing balance impaired Residential Goal (LTG) Pt will be able to stand with equal WB using AD with SPV or better for at least 2 minutes in initiation for future standing ADLs or gait training , if appropriate LTG Duration 12 weeks Three Impairment impaired RLE strength for transfers Residential Goal (LTG) Pt will be able to perform sit to stand transfer to AD with SPV or better LTG Duration 12 weeks Two Impairment bed mobility and chair transfers impaired Short Term Goal (STG) Pt will be able to scoot in multiple directions with or without UE assist in order to facilitate more efficient transfers to/from wheel chair and bed mobility STG Duration 8 weeks Lens Gauger Goal (LTG) Pt will improve FIST score >40 /56 to demonstrate improved stability and trunk control during transfers LTG Duration 12 weeks One Impairment not performing HEP for carryover with PT sessions Residential Goal (LTG) If appropriate, pt will be IND with HEP in order to maximize progression with PT and maintain progress upon discharge LTG Duration 12 weeks Assessment Summary Assessment Pt presenting with much lower energy today, limited participation in activity, much slower, smaller movements on leg press and stepper. Was able to ambulate 77' today without rest using SBQC Physical Therapy Plan Frequency and Duration Frequency of Treatment 1-2x/wk Duration of treatment (weeks) 12 Plan of Care Start Date 04/01/24 Plan of Care End Date 06/25/24 Therapeutic Interventions Therapeutic Interventions Balance Training,Canalithic Repositioning,Coordination Training,Gait Training,Home Exercise Program,Joint Mobilizations,Manual Therapy, Neuromuscular Re-education, Orthotic/Prosthetic Management ,Patient/Caregiver Education, Self-Care/Home Management, Sensory Integration,Soft Tissue Mobilization,Taping, Therapeutic Activities, Therapeutic Exercises, Vestibular Rehabilitation Modalities Biofeedback,Cold Pack/Ice Massage,Electric Stimulation, Hot Packs,Ultrasound Next Visit Focus/Plan Next Note Type Treatment Note Next Visit Plan Continue gait QC vs HW vs , w/ c follow increase distance, AD for STS if needed seated balance training. RLE strengthening of quad/glute
--- NOTE | 2024-05-28 15:15 | PT.OTN ---
Current Diagnoses Hemiplegia and hemiparesis following cerebral infarction affecting right dominant side (05/28/24) Unilateral primary osteoarthritis, right knee (05/28/24) Primary osteoarthritis, right shoulder (05/28/24) Stiffness of right shoulder, not elsewhere classified (05/28/24) Stiffness of right hip, not elsewhere classified (05/28/24) Stiffness of right knee, not elsewhere classified (05/28/24) Stiffness of right ankle, not elsewhere classified (05/28/24) Other lack of coordination (05/28/24) Weakness (05/28/24) Physical Therapy Treatment Note PT-OP-A Visit Information Start: 03/31/24 11:47 Freq: Status: Active Protocol: Document 05/28/24 14:35 SP (Rec: 05/28/24 15:36 SP [id number]) Out-Patient Physical Therapy Visit Information Visit Information Visit Type Treatment Note Visit Note 10th visit PN Visit Start Time 14:35 Visit Stop Time 15:15 Visit Number 11 (05/24 with PN) Number of SOCIAL ORGANIZATION PROFESSOR Visits 1 Evaluation Information Evaluation Date 04/01/24 Precautions Precautions Hx CVA with R sided deficits, fall risk Uses: lettering & number HO for communication support. PT-OP-B Current Condition Start: 03/31/24 11:47 Freq: Status: Active Protocol: Document 04/01/24 09:47 NM (Rec: 04/01/24 11:19 NM [id number]) Current Condition History of Current Condition History of Current Condition Pt presents to PT with R sided deficits following a L sided CVA 5 years ago. Pt primarily uses a manual wheelchair for mobility, utilizing BLE to propel (L>R) herself. Pt is largely non-verbal following her stroke, demonstrating expressive aphasia; she utilizes a chart to express her needs and is able to express yes/no to provide history. Pt lives in an assisted living facility and has caregivers at the facility who assist with ADLs; however , she presents to the evaluation alone. Pt reports that she is IND for most dressing ADLs (e.g. don/doff shoes and compression hose) but needs assist for eating. Prior to her CVA, pt was IND with all ADLs and mobility; she did not use any AD. Pt has not ambulated since her stroke 5 years ago. She does not stand except to transfer. Pt is IND with transfers from her chair to the bed, using a stand-step pivot toward her L side. Pt's RUE is flexed at her elbow, then supinated with wrist extension and finger flexion. Pt does report prn R knee, low back, and R shoulder /hand pain. She does not have an AFO. Pt presents to clinic with a spc but reports that she had not used her spc for mobility; did not use prior to CVA. Pt primarily relies on the bus for transportation. Prior Treatments and Tests Pt is concurrently in speech and occupation therapy Treatment Goals Patient/Caregiver Goals Pawel's goal is to ambulate PT-OP-C Subjective Start: 03/31/24 11:47 Freq: Status: Active Protocol: Document 05/28/24 14:35 SP (Rec: 05/28/24 15:36 SP [id number]) OP-PT Subjective Patient Comments Patient Comments Pt nodded yes indicating ok when asked how she is doing. PT-OP-D Balance Start: 03/31/24 11:47 Freq: Status: Active Protocol: Document 04/01/24 09:47 NM (Rec: 04/01/24 11:19 NM [id number]) OP-PT Balance Assessment Sitting Balance Static Sitting Balance Ability Good Dynamic Sitting Balance Ability Good Sitting Balance Comments Function in Sitting Test (FIST ): 56 Standing Balance Static Standing Balance Ability Poor Dynamic Standing Balance Ability Poor Murray Fall Scale Copyright Permission PT-OP-F Manual Assessment Start: 03/31/24 11:47 Freq: Status: Active Protocol: Document 04/01/24 09:47 NM (Rec: 04/01/24 11:19 NM [id number]) Manual Assessments Joint Mobility Assessment Joint Mobility Assessment Limitations with passive R knee flex, full ext PROM; mild limitations AROM in supine; hyperextension in stance. Decreased R ankle dorsiflexion and plantarflexion mobility Decreased R scapular mobility and glenohumeral translation PT-OP-G Mobility & Gait Start: 03/31/24 11:47 Freq: Status: Active Protocol: Document 04/01/24 09:47 NM (Rec: 04/01/24 11:19 NM [id number]) OP Mobility Evaluation Bed Mobility Rolling unable to roll R rolls to L side with block motion with L sided assist to side Supine to and from Sit to L side, using LUE to stabilize, needs min A at trunk to stabilize Transfers Sit to Stand needs 1 UE to assist with stand and scooting to edge of wheelchair, demos hyperextension of R knee once in stance. Strong tendency to shift toward L side, use LLE to rise, RLE further from sit Bed to Chair Transfers partial step pivot IND to L side from wheel chair to EOM Wheelchair Management Type of Wheelchair manual Special Equipment cushion air Assessment Details using LLE to propel OP Gait Assessment Gait Gait Assistance Required: Maximum Assistance,1 Person Assist Assistive Devices Assistive Device Gait Belt,Eros Walker Gait Deviations General Gait Pattern Antalgic,Flexed Trunk Comments Gait Comments Pt able to lift ea LE individually in place but unable to actually advance RLE , limited in part by inability to coordinate R hip/knee flexion in standing position and poor R foot clearance. Needs PT to block R knee to prevent buckling in R stance while minimally advancing LLE using hemiwalker on L side. Heavily dependent on LUE for support when attempting to lift RLE from floor. PT-OP-H Neuro Start: 03/31/24 11:47 Freq: Status: Active Protocol: Document 04/01/24 09:47 NM (Rec: 04/01/24 11:19 NM [id number]) Coordination Evaluation Upper Extremity Tests Right Finger to Nose Test Activity Impossible Finger to Therapist's Finger Test Activity Impossible Pronation/Supination Test Activity Impossible Left Finger to Nose Test Severe Impairment Finger to Therapist's Finger Test Moderate Impairment Pronation/Supination Test Severe Impairment Lower Extremity Tests Right Alternate Heel to Knee; Heel to Toe Test Severe Impairment Heel on Taylor Test Severe Impairment Foot Tapping Test Severe Impairment Left Alternate Heel to Knee; Heel to Toe Test Severe Impairment Heel on Taylor Test Moderate Impairment Foot Tapping Test Minimal Impairment Muscle Tone Tone Assessment Right Lower Extremity Extensor Tone Description Mild Hypertonicity Muscle Tone Comments More tone is present at R foot with supination/ plantarflexion than at hip/ knee Right Upper Extremity Flexor Tone Description Severe Hypertonicity PT-OP-J Posture/Palpation/Skin Start: 03/31/24 11:47 Freq: Status: Active Protocol: Document 04/01/24 09:47 NM (Rec: 04/01/24 16:02 NM [id number]) Posture Evaluation Comments Posture Comments In wheelchair, pt presents with forward head posture, rounded shoulder and slight kyphotic posture. Her RUE is abducted with elbow flexion, forearm supination, wrist extension, and finger flexion with thumb tucked inside her fingers. Her BLE are at 90/90 position at hip/knee at floor with slight supination/ plantarflexion in R foot PT-OP-K Range of Motion Start: 03/31/24 11:47 Freq: Status: Active Protocol: Document 04/01/24 09:47 NM (Rec: 04/01/24 15:56 NM [id number]) Shoulder Goniometric Range of Motion Shoulder ROM Limitations Comments Defer to OT for UE ADLs at this time Knee Goniometric Range of Motion Knee Right Flexion Active (degrees) 115 Extension Active (degrees) 5 Left Flexion Active (degrees) 130 Extension Active (degrees) 3 Ankle and Foot Goniometric Range of Motion Ankle and Foot Right Plantarflexion 20 Comments lacking 10 deg from neutral dorsiflexion Left Dorsiflexion with Knee Extended 3 Plantarflexion 30 PT-OP-M Strength Start: 03/31/24 11:47 Freq: Status: Active Protocol: Document 04/01/24 09:47 NM (Rec: 04/01/24 11:19 NM [id number]) Shoulder Strength Shoulder Manual Muscle Testing Left Flexion 3+ Fair+ Abduction (C5) 3+ Fair+ Internal Rotation 4- Good- Horizontal Abduction 4- Good- Comments bicep 4/5 Hip Strength Hip Manual Muscle Testing Right Flexion (L2) 3+ Fair+ Extension (S1) 2+ Poor+ Abduction 3 Fair Adduction 2+ Poor+ Left Flexion (L2) 4- Good- Extension (S1) 3+ Fair+ Abduction 4- Good- Adduction 4- Good- Comments tendency to move into hip ER with hip flexion Knee Strength Knee Manual Muscle Testing Right Flexion (S2) 3 Fair Extension (L3) 3+ Fair+ Left Flexion (S2) 4- Good- Extension (L3) 3+ Fair+ Ankle/Foot Strength Ankle and Foot Manual Muscle Testing Right Dorsiflexion (L4) 2+ Poor+ Plantarflexion (S1) 3 Fair Comments tested in sitting Left Dorsiflexion (L4) 3 Fair Plantarflexion (S1) 3 Fair Comments tested in sitting PT-OP-Q Treatments Start: 03/31/24 11:47 Freq: Status: Active Protocol: Document 05/28/24 14:35 SP (Rec: 05/28/24 15:36 SP [id number]) Cardio Equipment Recumbent Stepper (Sci-Fit) Duration (Minutes) 6 Resistance 4 Seat Position 10, 25 RPMs Other 0.52 miles, Max VCs BIG steps & inc pacePTA on recumbent working along side Gym Equipment Shuttle Recovery Bilateral Heel Raises Details cued TKE R>LLE-SOCIAL ORGANIZATION PROFESSOR assists counting out loud/cues for corrections Resistance 37# 1 navy Reps/Time x20 Unilateral Squats Details cued slower pacing, full ext RLE Resistance 37# navy Reps/Time 10 reps, 5 reps each LE Bilateral Squats Details cues full ext and flexion to block, slower pacing Resistance 50# (2 navy) Reps/Time x20 Gait Training Gait Activity Quad Cane Description Quad Cane Ambulation Device Used SBQC Level of Assistance CGA, wt shift L for RLE clearance Surface Floor Distance/Duration 53' x1 w/c follow PT Aide, 35 ' no follow w/c pos across room Comments Used QC whole time. Cued sequencing QC, RLE then LLE, improved stabiltiy, also maintain QC 4 point on floor for safety support bal. CG- Min A due to retro lean if out of sequence and decrease LUE WB into QC and or RLe advancement. Neuro Re-Education Treatment Balance Activities Toe Taps Details Toe Taps- BLEs Equipment 2>4 cones, LUE support on // bar CGA-Min A Reps/Duration several reps Comments SOCIAL ORGANIZATION PROFESSOR counts out color and foot PT-OP-T Assessment and Plan Start: 03/31/24 11:47 Freq: Status: Active Protocol: Document 05/28/24 14:35 SP (Rec: 05/28/24 15:36 SP [id number]) Physical Therapy Assessment Goals Four Impairment standing balance impaired Outpatient Clerk Goal (LTG) Pt will be able to stand with equal WB using AD with SPV or better for at least 2 minutes in initiation for future standing ADLs or gait training , if appropriate LTG Duration 12 weeks Three Impairment impaired RLE strength for transfers Usp Goal (LTG) Pt will be able to perform sit to stand transfer to AD with SPV or better LTG Duration 12 weeks Two Impairment bed mobility and chair transfers impaired Short Term Goal (STG) Pt will be able to scoot in multiple directions with or without UE assist in order to facilitate more efficient transfers to/from wheel chair and bed mobility STG Duration 8 weeks Usp Goal (LTG) Pt will improve FIST score >40 /56 to demonstrate improved stability and trunk control during transfers LTG Duration 12 weeks One Impairment not performing HEP for carryover with PT sessions Outpatient Clerk Goal (LTG) If appropriate, pt will be IND with HEP in order to maximize progression with PT and maintain progress upon discharge LTG Duration 12 weeks Assessment Summary Assessment Pt demonstrates better effort with encourangement during leg press cues full range each direction, max cues for sequencing 3pt pt gait c/ QC and BIGGER stride on recumbent stepper by SOCIAL ORGANIZATION PROFESSOR riding recumbent bike nearby demonstrating follow large range and increased pacing full 6 min, pt giggling and continued work on corrections. Pt takes little time to process coordination step taps which LE called out, missed 2 due to SOCIAL ORGANIZATION PROFESSOR changed from alternating LEs to 2 cone taps same foot. Physical Therapy Plan Frequency and Duration Frequency of Treatment 1-2x/wk Duration of treatment (weeks) 12 Plan of Care Start Date 04/01/24 Plan of Care End Date 06/25/24 Therapeutic Interventions Therapeutic Interventions Balance Training,Canalithic Repositioning,Coordination Training,Gait Training,Home Exercise Program,Joint Mobilizations,Manual Therapy, Neuromuscular Re-education, Orthotic/Prosthetic Management ,Patient/Caregiver Education, Self-Care/Home Management, Sensory Integration,Soft Tissue Mobilization,Taping, Therapeutic Activities, Therapeutic Exercises, Vestibular Rehabilitation Modalities Biofeedback,Cold Pack/Ice Massage,Electric Stimulation, Hot Packs,Ultrasound Next Visit Focus/Plan Next Note Type Treatment Note Next Visit Plan Continue gait QC with w/c follow increase distance vs positioning w/c across room as targe to walk to, AD for STS if needed, seated balance training. RLE strengthening of quad/glute
--- NOTE | 2024-07-01 14:35 | PT.OTN ---
Current Diagnoses Hemiplegia and hemiparesis following cerebral infarction affecting right dominant side (07/01/24) Unilateral primary osteoarthritis, right knee (07/01/24) Primary osteoarthritis, right shoulder (07/01/24) Stiffness of right shoulder, not elsewhere classified (07/01/24) Stiffness of right hip, not elsewhere classified (07/01/24) Stiffness of right knee, not elsewhere classified (07/01/24) Stiffness of right ankle, not elsewhere classified (07/01/24) Other lack of coordination (07/01/24) Weakness (07/01/24) Physical Therapy Treatment Note PT-OP-A Visit Information Start: 03/31/24 11:47 Freq: Status: Active Protocol: Document 07/01/24 13:45 DCW (Rec: 07/01/24 14:35 DCW [id number]) Out-Patient Physical Therapy Visit Information Visit Information Visit Type Progress Note Visit Start Time 13:45 Visit Stop Time 14:30 Visit Number 12 Number of MEDICAL INTERN Visits 0 Evaluation Information Evaluation Date 04/01/24 Precautions Precautions Hx CVA with R sided deficits, fall risk Uses: lettering & number HO for communication support. PT-OP-B Current Condition Start: 03/31/24 11:47 Freq: Status: Active Protocol: Document 04/01/24 09:47 NM (Rec: 04/01/24 11:19 NM [id number]) Current Condition History of Current Condition History of Current Condition Pt presents to PT with R sided deficits following a L sided CVA 5 years ago. Pt primarily uses a manual wheelchair for mobility, utilizing BLE to propel (L>R) herself. Pt is largely non-verbal following her stroke, demonstrating expressive aphasia; she utilizes a chart to express her needs and is able to express yes/no to provide history. Pt lives in an assisted living facility and has caregivers at the facility who assist with ADLs; however , she presents to the evaluation alone. Pt reports that she is IND for most dressing ADLs (e.g. don/doff shoes and compression hose) but needs assist for eating. Prior to her CVA, pt was IND with all ADLs and mobility; she did not use any AD. Pt has not ambulated since her stroke 5 years ago. She does not stand except to transfer. Pt is IND with transfers from her chair to the bed, using a stand-step pivot toward her L side. Pt's RUE is flexed at her elbow, then supinated with wrist extension and finger flexion. Pt does report prn R knee, low back, and R shoulder /hand pain. She does not have an AFO. Pt presents to clinic with a spc but reports that she had not used her spc for mobility; did not use prior to CVA. Pt primarily relies on the bus for transportation. Prior Treatments and Tests Pt is concurrently in speech and occupation therapy Treatment Goals Patient/Caregiver Goals Pawel's goal is to ambulate PT-OP-C Subjective Start: 03/31/24 11:47 Freq: Status: Active Protocol: Document 07/01/24 13:45 DCW (Rec: 07/01/24 14:35 DCW [id number]) OP-PT Subjective Patient Comments Patient Comments Pt feeling good today PT-OP-D Balance Start: 03/31/24 11:47 Freq: Status: Active Protocol: Document 07/01/24 13:45 DCW (Rec: 07/01/24 14:09 DCW [id number]) OP-PT Balance Assessment Sitting Balance Static Sitting Balance Ability Good Dynamic Sitting Balance Ability Good Standing Balance Static Standing Balance Ability Fair Dynamic Standing Balance Ability Fair Murray Fall Scale Copyright Permission PT-OP-F Manual Assessment Start: 03/31/24 11:47 Freq: Status: Active Protocol: Document 07/01/24 13:45 DCW (Rec: 07/01/24 14:09 DCW [id number]) Manual Assessments Joint Mobility Assessment Joint Mobility Assessment Mild hamstring tightness bilaterally PT-OP-G Mobility & Gait Start: 03/31/24 11:47 Freq: Status: Active Protocol: Document 07/01/24 13:45 DCW (Rec: 07/01/24 14:09 DCW [id number]) OP Mobility Evaluation Transfers Sit to Stand CGA, pt exhibits uncontrolled descent stand->sit Wheelchair Management Type of Wheelchair manual Special Equipment cushion air Assessment Details using LLE to propel OP Gait Assessment Gait Gait Assistance Required: Contact Guard Assist,1 Person Assist Assistive Devices Assistive Device Gait Belt,Small Based Quad Cane Gait Deviations General Gait Pattern Antalgic,Decreased Stride Length,Decreased Feet Clearance,Flexed Trunk Comments Gait Comments Pt able to ambulate with use of LBQC for 50'-75' CBA, does require w/c follow, but this is more due to pt anxiety. Feels much more confident inside // bars, able to increase malinda, but obviously then limited ambulation distance to length of bars. PT-OP-H Neuro Start: 03/31/24 11:47 Freq: Status: Active Protocol: Document 07/01/24 13:45 DCW (Rec: 07/01/24 14:09 DCW [id number]) Coordination Evaluation Upper Extremity Tests Right Finger to Nose Test Activity Impossible Finger to Therapist's Finger Test Activity Impossible Pronation/Supination Test Activity Impossible Left Finger to Nose Test Moderate Impairment Finger to Therapist's Finger Test Moderate Impairment Alternate Nose to Finger Test Moderate Impairment Pronation/Supination Test Severe Impairment Lower Extremity Tests Right Heel on Taylor Test Severe Impairment Left Heel on Taylor Test Moderate Impairment Muscle Tone Tone Assessment Right Lower Extremity Extensor Tone Description Mild Hypertonicity Muscle Tone Comments More tone is present at R foot with supination/ plantarflexion than at hip/ knee Right Upper Extremity Flexor Tone Description Severe Hypertonicity PT-OP-J Posture/Palpation/Skin Start: 03/31/24 11:47 Freq: Status: Active Protocol: Document 07/01/24 13:45 DCW (Rec: 07/01/24 14:09 DCW [id number]) Posture Evaluation Comments Posture Comments Sacral sitting in w/c and standard chair, demonstrates forward head/rounded shoulder posture. Holds right arm in protective positioning internally rotated into abdomen with elbow at 90 deg PT-OP-K Range of Motion Start: 03/31/24 11:47 Freq: Status: Active Protocol: Document 07/01/24 13:45 DCW (Rec: 07/01/24 14:09 DCW [id number]) Knee Goniometric Range of Motion Knee Right Flexion Active (degrees) 125 Extension Active (degrees) 2 Left Flexion Active (degrees) 130 Extension Active (degrees) 2 Ankle and Foot Goniometric Range of Motion Ankle and Foot Right Dorsiflexion with Knee Flexed 2 Plantarflexion 30 Left Dorsiflexion with Knee Extended 10 Plantarflexion 40 PT-OP-M Strength Start: 03/31/24 11:47 Freq: Status: Active Protocol: Document 07/01/24 13:45 DCW (Rec: 07/01/24 14:09 DCW [id number]) Shoulder Strength Shoulder Manual Muscle Testing Left Flexion 4- Good- Abduction (C5) 4- Good- Internal Rotation 4 Good Horizontal Abduction 4 Good Comments bicep 4+/5 Hip Strength Hip Manual Muscle Testing Right Flexion (L2) 3+ Fair+ Extension (S1) 4 Good Abduction 4 Good Adduction 4 Good Left Flexion (L2) 4 Good Extension (S1) 4 Good Abduction 4+ Good+ Adduction 4+ Good+ Knee Strength Knee Manual Muscle Testing Right Flexion (S2) 4 Good Extension (L3) 4 Good Left Flexion (S2) 4+ Good+ Extension (L3) 4+ Good+ Ankle/Foot Strength Ankle and Foot Manual Muscle Testing Right Dorsiflexion (L4) 4- Good- Plantarflexion (S1) 3 Fair Comments tested in sitting Left Dorsiflexion (L4) 4 Good Plantarflexion (S1) 3 Fair Comments tested in sitting PT-OP-Q Treatments Start: 03/31/24 11:47 Freq: Status: Active Protocol: Document 05/28/24 14:35 SP (Rec: 05/28/24 15:36 SP [id number]) Cardio Equipment Recumbent Stepper (Sci-Fit) Duration (Minutes) 6 Resistance 4 Seat Position 10, 25 RPMs Other 0.52 miles, Max VCs BIG steps & inc pacePTA on recumbent working along side Gym Equipment Shuttle Recovery Bilateral Heel Raises Details cued TKE R>LLE-MEDICAL INTERN assists counting out loud/cues for corrections Resistance 37# 1 navy Reps/Time x20 Unilateral Squats Details cued slower pacing, full ext RLE Resistance 37# navy Reps/Time 10 reps, 5 reps each LE Bilateral Squats Details cues full ext and flexion to block, slower pacing Resistance 50# (2 navy) Reps/Time x20 Gait Training Gait Activity Quad Cane Description Quad Cane Ambulation Device Used SBQC Level of Assistance CGA, wt shift L for RLE clearance Surface Floor Distance/Duration 53' x1 w/c follow PT Aide, 35 ' no follow w/c pos across room Comments Used QC whole time. Cued sequencing QC, RLE then LLE, improved stabiltiy, also maintain QC 4 point on floor for safety support bal. CG- Min A due to retro lean if out of sequence and decrease LUE WB into QC and or RLe advancement. Neuro Re-Education Treatment Balance Activities Toe Taps Details Toe Taps- BLEs Equipment 2>4 cones, LUE support on // bar CGA-Min A Reps/Duration several reps Comments MEDICAL INTERN counts out color and foot PT-OP-T Assessment and Plan Start: 03/31/24 11:47 Freq: Status: Active Protocol: Document 07/01/24 13:45 DCW (Rec: 07/01/24 14:35 DCW [id number]) Physical Therapy Assessment Impairments Impairments Activity Tolerance,Balance, Coordination,Edema,Functional Activities,Functional Mobility ,Gait,Integument,Pain,Posture, ROM,Sensation,Soft Tissue Mobility,Strength,Tone, Transfers,Vestibular,Visual Motor Goals Four Impairment standing balance impaired Principal Software Engineer Goal (LTG) Pt will be able to stand with equal WB using AD with SPV or better for at least 2 minutes in initiation for future standing ADLs or gait training , if appropriate LTG Duration Met Three Impairment impaired RLE strength for transfers Principal Software Engineer Goal (LTG) Pt will be able to perform sit to stand transfer to AD with SPV or better LTG Duration Met Two Impairment bed mobility and chair transfers impaired Short Term Goal (STG) Pt will be able to scoot in multiple directions with or without UE assist in order to facilitate more efficient transfers to/from wheel chair and bed mobility STG Duration Met Snf Goal (LTG) Pt will improve FIST score >40 /56 to demonstrate improved stability and trunk control during transfers LTG Duration 12 weeks One Impairment not performing HEP for carryover with PT sessions Principal Software Engineer Goal (LTG) If appropriate, pt will be IND with HEP in order to maximize progression with PT and maintain progress upon discharge LTG Duration 12 weeks Assessment Summary Assessment Pt showing substantial progress from initial evaluation. Pt ambulating with CGA for 50-75', and shows transfers with supervision assistance. Able to stand without an assistive device for 2+ minutes. Pt may be approaching progress plateau, will attempt to continue to progress ambulation tolerance and distance. Will greatly benefit from working on ambulation with assistance at current [facility]. Physical Therapy Plan Frequency and Duration Frequency of Treatment 1-2x/wk Duration of treatment (weeks) 12 Plan of Care Start Date 07/01/24 Plan of Care End Date 08/11/24 Therapeutic Interventions Therapeutic Interventions Balance Training,Canalithic Repositioning,Coordination Training,Gait Training,Home Exercise Program,Joint Mobilizations,Manual Therapy, Neuromuscular Re-education, Orthotic/Prosthetic Management ,Patient/Caregiver Education, Self-Care/Home Management, Sensory Integration,Soft Tissue Mobilization,Taping, Therapeutic Activities, Therapeutic Exercises, Vestibular Rehabilitation Modalities Biofeedback,Cold Pack/Ice Massage,Electric Stimulation, Hot Packs,Ultrasound Next Visit Focus/Plan Next Note Type Treatment Note Next Visit Plan Continue gait QC with w/c follow increase distance vs positioning w/c across room as targe to walk to, AD for STS if needed, seated balance training. RLE strengthening of quad/glute
--- NOTE | 2024-07-01 14:36 | PT.OPPOC ---
Physical, Occupational & Speech Therapy At Current Diagnoses Hemiplegia and hemiparesis following cerebral infarction affecting right dominant side (07/01/24) Unilateral primary osteoarthritis, right knee (07/01/24) Primary osteoarthritis, right shoulder (07/01/24) Stiffness of right shoulder, not elsewhere classified (07/01/24) Stiffness of right hip, not elsewhere classified (07/01/24) Stiffness of right knee, not elsewhere classified (07/01/24) Stiffness of right ankle, not elsewhere classified (07/01/24) Other lack of coordination (07/01/24) Weakness (07/01/24) Visit Care Team Role Provider Type Merle Antonio MD Attending Provider Non-Staff Family Provider Primary Care Provider Referring Provider Specialty: Family Practice Address: [address] [place] [address], [id number] Email: Plan Of Care PT-OP-B Current Condition Start: 03/31/24 11:47 Freq: Status: Active Protocol: Document 04/01/24 09:47 NM (Rec: 04/01/24 11:19 NM [id number]) Current Condition History of Current Condition History of Current Condition Pt presents to PT with R sided deficits following a L sided CVA 5 years ago. Pt primarily uses a manual wheelchair for mobility, utilizing BLE to propel (L>R) herself. Pt is largely non-verbal following her stroke, demonstrating expressive aphasia; she utilizes a chart to express her needs and is able to express yes/no to provide history. Pt lives in an assisted living facility and has caregivers at the facility who assist with ADLs; however , she presents to the evaluation alone. Pt reports that she is IND for most dressing ADLs (e.g. don/doff shoes and compression hose) but needs assist for eating. Prior to her CVA, pt was IND with all ADLs and mobility; she did not use any AD. Pt has not ambulated since her stroke 5 years ago. She does not stand except to transfer. Pt is IND with transfers from her chair to the bed, using a stand-step pivot toward her L side. Pt's RUE is flexed at her elbow, then supinated with wrist extension and finger flexion. Pt does report prn R knee, low back, and R shoulder /hand pain. She does not have an AFO. Pt presents to clinic with a spc but reports that she had not used her spc for mobility; did not use prior to CVA. Pt primarily relies on the bus for transportation. Prior Treatments and Tests Pt is concurrently in speech and occupation therapy Treatment Goals Patient/Caregiver Goals Pawel's goal is to ambulate PT-OP-T Assessment and Plan Start: 03/31/24 11:47 Freq: Status: Active Protocol: Document 07/01/24 13:45 DCW (Rec: 07/01/24 14:35 DCW [id number]) Physical Therapy Assessment Impairments Impairments Activity Tolerance,Balance, Coordination,Edema,Functional Activities,Functional Mobility ,Gait,Integument,Pain,Posture, ROM,Sensation,Soft Tissue Mobility,Strength,Tone, Transfers,Vestibular,Visual Motor Goals Four Impairment standing balance impaired [facility] Goal (LTG) Pt will be able to stand with equal WB using AD with SPV or better for at least 2 minutes in initiation for future standing ADLs or gait training , if appropriate LTG Duration Met Three Impairment impaired RLE strength for transfers [facility] Goal (LTG) Pt will be able to perform sit to stand transfer to AD with SPV or better LTG Duration Met Two Impairment bed mobility and chair transfers impaired Short Term Goal (STG) Pt will be able to scoot in multiple directions with or without UE assist in order to facilitate more efficient transfers to/from wheel chair and bed mobility STG Duration Met Aviation Support Equipment Repairer Goal (LTG) Pt will improve FIST score >40 /56 to demonstrate improved stability and trunk control during transfers LTG Duration 12 weeks One Impairment not performing HEP for carryover with PT sessions Aviation Support Equipment Repairer Goal (LTG) If appropriate, pt will be IND with HEP in order to maximize progression with PT and maintain progress upon discharge LTG Duration 12 weeks Assessment Summary Assessment Pt showing substantial progress from initial evaluation. Pt ambulating with CGA for 50-75', and shows transfers with supervision assistance. Able to stand without an assistive device for 2+ minutes. Pt may be approaching progress plateau, will attempt to continue to progress ambulation tolerance and distance. Will greatly benefit from working on ambulation with assistance at current [facility]. Physical Therapy Plan Frequency and Duration Frequency of Treatment 1-2x/wk Duration of treatment (weeks) 12 Plan of Care Start Date 07/01/24 Plan of Care End Date 08/11/24 Therapeutic Interventions Therapeutic Interventions Balance Training,Canalithic Repositioning,Coordination Training,Gait Training,Home Exercise Program,Joint Mobilizations,Manual Therapy, Neuromuscular Re-education, Orthotic/Prosthetic Management ,Patient/Caregiver Education, Self-Care/Home Management, Sensory Integration,Soft Tissue Mobilization,Taping, Therapeutic Activities, Therapeutic Exercises, Vestibular Rehabilitation Modalities Biofeedback,Cold Pack/Ice Massage,Electric Stimulation, Hot Packs,Ultrasound Next Visit Focus/Plan Next Note Type Treatment Note Next Visit Plan Continue gait QC with w/c follow increase distance vs positioning w/c across room as targe to walk to, AD for STS if needed, seated balance training. RLE strengthening of quad/glute Plan of Care Plan of Care Start Date 07/01/24 Plan of Care End Date 08/11/24 Electronically Signed by: Augusto Meadows, PT 07/01/24 5920 If you are in agreement with this Plan of Care, please return a signed and dated copy. I have reviewed this Plan of Care and certify that the skilled therapy services above are required to meet the patient?s needs. Physician Signature Date Printed Name and Credentials Clinical Instructor Signature Printed Name and Credentials
--- NOTE | 2024-07-26 15:31 | PT.OPDS ---
Current Diagnoses Hemiplegia and hemiparesis following cerebral infarction affecting right dominant side (07/01/24) Unilateral primary osteoarthritis, right knee (07/01/24) Primary osteoarthritis, right shoulder (07/01/24) Stiffness of right shoulder, not elsewhere classified (07/01/24) Stiffness of right hip, not elsewhere classified (07/01/24) Stiffness of right knee, not elsewhere classified (07/01/24) Stiffness of right ankle, not elsewhere classified (07/01/24) Other lack of coordination (07/01/24) Weakness (07/01/24) Visit Care Team Role Provider Type Merle Antonio MD Attending Provider Non-Staff Family Provider Primary Care Provider Referring Provider Specialty: Family Practice Address: [address] [place] [address], [id number] Email: Visit Number Visit Number 12 Discharge Summary PT-OP-B Current Condition Start: 03/31/24 11:47 Freq: Status: Active Protocol: Document 04/01/24 09:47 NM (Rec: 04/01/24 11:19 NM [id number]) Current Condition History of Current Condition History of Current Condition Pt presents to PT with R sided deficits following a L sided CVA 5 years ago. Pt primarily uses a manual wheelchair for mobility, utilizing BLE to propel (L>R) herself. Pt is largely non-verbal following her stroke, demonstrating expressive aphasia; she utilizes a chart to express her needs and is able to express yes/no to provide history. Pt lives in an assisted living facility and has caregivers at the facility who assist with ADLs; however , she presents to the evaluation alone. Pt reports that she is IND for most dressing ADLs (e.g. don/doff shoes and compression hose) but needs assist for eating. Prior to her CVA, pt was IND with all ADLs and mobility; she did not use any AD. Pt has not ambulated since her stroke 5 years ago. She does not stand except to transfer. Pt is IND with transfers from her chair to the bed, using a stand-step pivot toward her L side. Pt's RUE is flexed at her elbow, then supinated with wrist extension and finger flexion. Pt does report prn R knee, low back, and R shoulder /hand pain. She does not have an AFO. Pt presents to clinic with a spc but reports that she had not used her spc for mobility; did not use prior to CVA. Pt primarily relies on the bus for transportation. Prior Treatments and Tests Pt is concurrently in speech and occupation therapy Treatment Goals Patient/Caregiver Goals Pawel's goal is to ambulate PT-OP-C Subjective Start: 03/31/24 11:47 Freq: Status: Active Protocol: Document 07/01/24 13:45 DCW (Rec: 07/01/24 14:35 DCW [id number]) OP-PT Subjective Patient Comments Patient Comments Pt feeling good today PT-OP-D Balance Start: 03/31/24 11:47 Freq: Status: Active Protocol: Document 07/01/24 13:45 DCW (Rec: 07/01/24 14:09 DCW [id number]) OP-PT Balance Assessment Sitting Balance Static Sitting Balance Ability Good Dynamic Sitting Balance Ability Good Standing Balance Static Standing Balance Ability Fair Dynamic Standing Balance Ability Fair Murray Fall Scale Copyright Permission PT-OP-F Manual Assessment Start: 03/31/24 11:47 Freq: Status: Active Protocol: Document 07/01/24 13:45 DCW (Rec: 07/01/24 14:09 DCW [id number]) Manual Assessments Joint Mobility Assessment Joint Mobility Assessment Mild hamstring tightness bilaterally PT-OP-G Mobility & Gait Start: 03/31/24 11:47 Freq: Status: Active Protocol: Document 07/01/24 13:45 DCW (Rec: 07/01/24 14:09 DCW [id number]) OP Mobility Evaluation Transfers Sit to Stand CGA, pt exhibits uncontrolled descent stand->sit Wheelchair Management Type of Wheelchair manual Special Equipment cushion air Assessment Details using LLE to propel OP Gait Assessment Gait Gait Assistance Required: Contact Guard Assist,1 Person Assist Assistive Devices Assistive Device Gait Belt,Small Based Quad Cane Gait Deviations General Gait Pattern Antalgic,Decreased Stride Length,Decreased Feet Clearance,Flexed Trunk Comments Gait Comments Pt able to ambulate with use of LBQC for 50'-75' CBA, does require w/c follow, but this is more due to pt anxiety. Feels much more confident inside // bars, able to increase malinda, but obviously then limited ambulation distance to length of bars. PT-OP-H Neuro Start: 03/31/24 11:47 Freq: Status: Active Protocol: Document 07/01/24 13:45 DCW (Rec: 07/01/24 14:09 DCW [id number]) Coordination Evaluation Upper Extremity Tests Right Finger to Nose Test Activity Impossible Finger to Therapist's Finger Test Activity Impossible Pronation/Supination Test Activity Impossible Left Finger to Nose Test Moderate Impairment Finger to Therapist's Finger Test Moderate Impairment Alternate Nose to Finger Test Moderate Impairment Pronation/Supination Test Severe Impairment Lower Extremity Tests Right Heel on Taylor Test Severe Impairment Left Heel on Taylor Test Moderate Impairment Muscle Tone Tone Assessment Right Lower Extremity Extensor Tone Description Mild Hypertonicity Muscle Tone Comments More tone is present at R foot with supination/ plantarflexion than at hip/ knee Right Upper Extremity Flexor Tone Description Severe Hypertonicity PT-OP-J Posture/Palpation/Skin Start: 03/31/24 11:47 Freq: Status: Active Protocol: Document 07/01/24 13:45 DCW (Rec: 07/01/24 14:09 DCW [id number]) Posture Evaluation Comments Posture Comments Sacral sitting in w/c and standard chair, demonstrates forward head/rounded shoulder posture. Holds right arm in protective positioning internally rotated into abdomen with elbow at 90 deg PT-OP-K Range of Motion Start: 03/31/24 11:47 Freq: Status: Active Protocol: Document 07/01/24 13:45 DCW (Rec: 07/01/24 14:09 DCW [id number]) Knee Goniometric Range of Motion Knee Right Flexion Active (degrees) 125 Extension Active (degrees) 2 Left Flexion Active (degrees) 130 Extension Active (degrees) 2 Ankle and Foot Goniometric Range of Motion Ankle and Foot Right Dorsiflexion with Knee Flexed 2 Plantarflexion 30 Left Dorsiflexion with Knee Extended 10 Plantarflexion 40 PT-OP-M Strength Start: 03/31/24 11:47 Freq: Status: Active Protocol: Document 07/01/24 13:45 DCW (Rec: 07/01/24 14:09 DCW [id number]) Shoulder Strength Shoulder Manual Muscle Testing Left Flexion 4- Good- Abduction (C5) 4- Good- Internal Rotation 4 Good Horizontal Abduction 4 Good Comments bicep 4+/5 Hip Strength Hip Manual Muscle Testing Right Flexion (L2) 3+ Fair+ Extension (S1) 4 Good Abduction 4 Good Adduction 4 Good Left Flexion (L2) 4 Good Extension (S1) 4 Good Abduction 4+ Good+ Adduction 4+ Good+ Knee Strength Knee Manual Muscle Testing Right Flexion (S2) 4 Good Extension (L3) 4 Good Left Flexion (S2) 4+ Good+ Extension (L3) 4+ Good+ Ankle/Foot Strength Ankle and Foot Manual Muscle Testing Right Dorsiflexion (L4) 4- Good- Plantarflexion (S1) 3 Fair Comments tested in sitting Left Dorsiflexion (L4) 4 Good Plantarflexion (S1) 3 Fair Comments tested in sitting PT-OP-T Assessment and Plan Start: 03/31/24 11:47 Freq: Status: Active Protocol: Document 07/26/24 15:26 DCW (Rec: 07/26/24 15:31 DCW [id number]) Physical Therapy Assessment Assessment Summary Assessment Pt has no-showed for three of past four visits, which is in violation of this clinic's attendance policy. Unfortunately, pt lives at an Assisted Living Facility, and attempts to phone for appointment reminders have largely gone unanswered. Pt will need to be discharged at this time, and will require a new referral in order to return to skilled PT in the future. Physical Therapy Plan Discharge Physical Therapy Discharge Reasons No Longer Attending PT
== END 2024-07-28 12:56 | disposition home or self-care (01) ==
LOC: PHYS 13:45
PROVIDERS: Family Provider Family Medicine; PCP Family Medicine; Referring Provider Family Medicine; Visit Provider Family Medicine
DX: M17.11 Unilateral primary osteoarthritis, right knee (principal); M19.011 Primary osteoarthritis, right shoulder; I69.351 Hemiplegia and hemiparesis following cerebral infarction affecting right dominant side; R53.1 Weakness; R27.8 Other lack of coordination; M25.671 Stiffness of right ankle, not elsewhere classified; M25.661 Stiffness of right knee, not elsewhere classified; M25.611 Stiffness of right shoulder, not elsewhere classified; M25.651 Stiffness of right hip, not elsewhere classified
CPT/HCPCS: 97110; 97112; 97116; 97140; 97162; 97530

== ENCOUNTER → 2024-09-08 | Outpatient (CLI) | payer MEDICARE, MEDICAID, SELFPAY ==
--- NOTE | 2024-09-08 12:08 | DI.MG.S_ITS ---
MM screening mammo BI: 09/08/2024. BI-RADS: 1 CLINICAL: 68-year old female for bilateral screening mammogram. Tyrer-Cuzick lifetime risk of 5.1%. No personal or first-degree family history of breast cancer. PRIOR EXAMS 06/28/2022. MAMMOGRAPHY TECHNIQUE: 2D digital mammographic views obtained, with additional images as needed for full coverage. DENSITY B. There are scattered areas of fibroglandular density. MAMMOGRAPHY FINDINGS Bilateral: No suspicious mass, asymmetry, microcalcification, or other abnormality seen. IMPRESSION: * No evidence of malignancy. RECOMMENDATIONS Bilateral * Annual screening mammography. OVERALL ASSESSMENT CATEGORY BI-RADS-1: Negative. The [employer] recommends annual screening mammography beginning at age 40 for women with average risk of breast cancer. ELECTRONICALLY SIGNED: Carmen Perkins M.D. on 09/10/2024 at 04:03:11 PM PT Interpreting Station ID: [id number]
== END ==
LOC: RAD 12:07
PROVIDERS: Family Provider Family Medicine; PCP Family Medicine; Referring Provider Nurse Practitioner Family; Visit Provider Nurse Practitioner Family
DX: Z12.31 Encounter for screening mammogram for malignant neoplasm of breast (principal)
CPT/HCPCS: 77063; 77067

== ENCOUNTER → 2024-09-17 15:03 | Outpatient (CLI) | payer MEDICARE, MEDICAID, SELFPAY ==
--- NOTE | 2024-09-17 15:05 | DI.RAD.S_ITS ---
PROCEDURE: XR DEXA AXIAL SKELETON INDICATIONS: SCREENING FOR OSTEOPOROSIS COMPARISON: None. FINDINGS: Lumbar Spine: Bone mineral density 1.053 g/cm2, T score 0.3. Right Femoral Neck: Bone mineral density 0.706 g/cm2, T score -1.3. Right Hip: Bone mineral density 0.849 g/cm2, T score -0.8. Fracture Risk Calculation (when applicable): 10-year fracture risk of a major osteoporotic fracture 8.8 percent and of a hip fracture 0.9 percent. (T score greater or equal to -1.0 to: NORMAL) (T score from -1.1 to -2.4: OSTEOPENIA) (T score less than or equal to -2.5: OSTEOPOROSIS) IMPRESSION: Osteopenia--- recommend repeat DEXA in 2-3 years for reassessment. Follow-up guidelines as follows: Osteoporosis: Consider a repeat DEXA and Vertebral Fracture Assessment (VFA) exam in 2 years or sooner if medically necessary, to reassess this patient's status. Osteopenia: Consider a repeat DEXA in 2-3 years to reassess this patient's status, or if there is a new clinical indication. Normal: Consider a repeat DEXA in 5 years or sooner, or if there is a new clinical indication. All treatment decisions require clinical judgment and consideration of individual patient factors, including patient preferences, comorbidities, previous drug use, risk factors not captured in the FRAX model (e.g., frailty, falls, vitamin D deficiency, increased bone turnover, interval significant decline in bone density ) and possible under- or over-estimation of fracture risk by FRAX. In addition, the NOF Guide recommends that FDA-approved medical therapies be considered in postmenopausal women and men age >= 50 years with a: * Hip or vertebral (clinical or morphometric) fracture * T-score of <=-2.5 at the spine or hip * Ten-year fracture probability by FRAX of >= 3% for hip fracture or >=20% for major osteoporotic fracture. Dictated by: Jason Navarrete M.D. on 09/17/2024 at 19:45 Approved by: Jason Navarrete M.D. on 09/17/2024 at 19:47
== END ==
LOC: RAD 15:04
PROVIDERS: Family Provider Family Medicine; PCP Family Medicine; Referring Provider Family Medicine; Visit Provider Family Medicine
DX: Z13.820 Encounter for screening for osteoporosis (principal); M85.851 Other specified disorders of bone density and structure, right thigh; M17.11 Unilateral primary osteoarthritis, right knee; Z87.891 Personal history of nicotine dependence
CPT/HCPCS: 77080